=== PATIENT | male | born 1950 ===

== ENCOUNTER 2016-07-05 19:29 | Inpatient (IN) | payer OTHER, MEDICARE ==
[2016-07-05 19:50] LABS: ADD MANUAL DIFF? NO
[2016-07-05 20:04] LABS: BILIRUBIN,TOTAL 1.5 mg/dL (0.2-1.3); CALCIUM 9.7 mg/dL (8.4-10.5); POTASSIUM 4.3 mmol/L (3.6-5.0); TOTAL PROTEIN 7.3 g/dL (5.8-8.3)
[2016-07-05] MEDS ORDERED: WATER FOR INJECTION IV ONE ×2 (20:15)
[2016-07-05] MEDS ORDERED: ALTEPLASE IV ONE ×2 (20:15)
[2016-07-05 20:18] LABS: INR 1.28 (0.93-1.08); PARTIAL THROMBOPLASTIN TIME 25.1 Seconds (23.7-30.8)
[2016-07-05 20:19] LABS: GRAN % 65.9 % (50.0-68.0); HEMATOCRIT 35.9 % (42.0-52.0); LYMPH % 15.7 % (22.0-35.0); MEAN CELL VOLUME 87.8 fL (80.0-105.0); MEAN CORPUSCULAR HEMOGLOBIN 29.1 pg (25.0-35.0); MEAN CORPUSCULAR HGB CONC 33.1 g/dl (31.0-37.0); MEAN PLATELET VOLUME 10.8 fl (7.0-11.0); PLATELET COUNT 142 10^3/uL (120.0-450.0); RED CELL DISTRIBUTION WIDTH 15.2 % (11.5-14.5); TROPONIN I 0.04 ng/mL; WHITE BLOOD COUNT 4.3 10^3/ul (4.5-11.0)
[2016-07-05 20:20] LABS: BASO # 0.02 K/mm3 (0.0-2.0); BASO % 0.5 % (0.0-3.0); EOS # 0.2 (0.0-0.7); EOS % 3.8 % (1.5-5.0); GRAN # 2.81 (1.4-6.5); LYMPH # 0.7 (1.2-3.4); MONO # 0.6 (0.1-0.6); MONO % 14.1 % (1.0-6.0)
--- NOTE | 2016-07-05 21:00 | CP.PCM.CON ---
<Barry Lopez - Last Filed: 07/05/16 22:34> History of Present Illness - History of Present Illness History of Present Illness: 65 y/o M with PMH of CAD s/p quadruple bypass, HLD, Diverticulitis, Gout, and Chronic kidney disease presents to the for sudden onset left sided weakness. Pt is accompanied at bedside by who provides history for patient. Pt was at home with when between [id number] pt developed left arm shaking. His then noticed the patient began to have increased difficulty breathing and he was gasping for air. Pt's speech was also unclear. At this time, his called the ambulance. Pt was intubated in the field due to inability to protect his own airway. Pt was brought into ED and CODE STROKE was called. Head CT was obtained which could not exclude possibility of nonhemorrhagic MCA stroke. Pt was started on tPA in ED. Of note, according to , pt has been lethargic over the past 2 weeks and had several episodes of diarrhea. He has been sleeping more than usual and decreased oral intake. also describes the patient as being short of breath over this time as well. PMH: CAD s/ quadruple bypass, HLD, Diverticulitis, Gout, Chronic kidney disease Surgical Hx: Appendectomy, quadruple bypass around 16 years ago Social Hx: Former heavy smoker, occasional tobacco use quadruple bypass, denies illicit drug use. Retired Allergies: NKDA Medication: ASA, Coreg, Renvela, Renexa, Allopurinol, Periactin, Vit. D, Lipitor , Ramipril, Fenofibric acid, Nitroglycerin, Plavix Review of Systems - Review of Systems Systems not reviewed;Unavailable: Intubated Past Patient History - Infectious Disease Hx of Infectious Diseases: None - Past Social History Smoking Status: Current Some Days Smoker - CARDIAC Hx Heart Attack: Yes Hx Hypercholesterolemia: Yes Other/Comment: CAD. Quadruple bypass - RENAL Other/Comment: as per , patient had "high creatinine levels" and is on renvela. - HEMATOLOGICAL/ONCOLOGICAL Other/Comment: "high uric acid" - GASTROINTESTINAL Hx Diverticulitis: Yes - PSYCHIATRIC Hx Substance Use: No - SURGICAL HISTORY Hx Appendectomy: Yes Other/Comment: Quadruple bypass - ANESTHESIA Hx Anesthesia: Yes Hx Anesthesia Reactions: No Hx Malignant Hyperthermia: No Meds Allergies/Adverse Reactions: Allergies Allergy/AdvReac Type Severity Reaction Status Date / Time No Known Allergies Allergy Verified 07/05/16 19:31 - Medications Medications: Current Medications Alteplase, Recombinant 64.8 mg (/ Sterile Water) 100 mls @ 50 mls/hr IV ONCE ONE PRN Reason: Protocol Stop: 07/05/16 22:14 Last Admin: 07/05/16 20:07 Dose: 32.4 mls/hr Physical Exam - Constitutional Appears: In Acute Distress - Head Exam Head Exam: ATRAUMATIC, NORMAL INSPECTION, NORMOCEPHALIC - Eye Exam Eye Exam: Normal appearance, PERRL - ENT Exam ENT Exam: Mucous Membranes Moist, Normal Exam - Neck Exam Neck exam: Positive for: Normal Inspection. Negative for: Lymphadenopathy - Respiratory Exam Respiratory Exam: Rhonchi (Throughout right lobe), Respiratory Distress ( Intubated) - Cardiovascular Exam Cardiovascular Exam: Irregular Rhythm, +S1, +S2 - GI/Abdominal Exam GI & Abdominal Exam: Normal Bowel Sounds, Soft. absent: Distended, Guarding - Extremities Exam Extremities exam: Positive for: normal inspection. Negative for: calf tenderness, pedal edema - Neurological Exam Additional comments: Spontaneous movement noted on right side. No movement noted on left. Reflexes intact on right side. No reflexes on left side. - Skin Skin Exam: Intact, Normal Color, Warm Results - Vital Signs Recent Vital Signs: Last Vital Signs Temp 98 F 07/05/16 20:34 Pulse 96 H 07/05/16 20:35 Resp 14 07/05/16 20:34 BP 165/110 H 07/05/16 20:35 Pulse Ox 98 07/05/16 20:20 - Labs Result Diagrams: 07/05/16 19:48 07/05/16 19:48 Labs: Laboratory Results - last 24 hr 07/05/16 07/05/16 07/05/16 19:47 19:48 19:48 WBC 4.3 L RBC 4.09 Hgb 11.9 L Hct 35.9 L MCV 87.8 MCH 29.1 MCHC 33.1 RDW 15.2 H Plt Count 142 MPV 10.8 Gran % 65.9 Lymph % (Auto) 15.7 L [place] % (Auto) 14.1 H Eos % (Auto) 3.8 Baso % (Auto) 0.5 Gran # 2.81 Lymph # 0.7 L [place] # 0.6 Eos # 0.2 Baso # 0.02 PT 13.8 H INR 1.28 H APTT 25.1 Sodium Potassium Chloride Carbon Dioxide Anion Gap BUN Creatinine Est GFR ( Amer) Est GFR (Non-Af Amer) POC Glucose (mg/dL) 114 H Random Glucose Calcium Total Bilirubin AST ALT Alkaline Phosphatase Troponin I Total Protein Albumin Globulin Albumin/Globulin Ratio Triglycerides Cholesterol LDL Cholesterol Direct HDL Cholesterol 07/05/16 19:48 WBC RBC Hgb Hct MCV MCH MCHC RDW Plt Count MPV Gran % Lymph % (Auto) [place] % (Auto) Eos % (Auto) Baso % (Auto) Gran # Lymph # [place] # Eos # Baso # PT INR APTT Sodium 137 Potassium 4.3 Chloride 103 Carbon Dioxide 23 Anion Gap 15 BUN 26 H Creatinine 2.4 H Est GFR ( Amer) 33 Est GFR (Non-Af Amer) 27 POC Glucose (mg/dL) Random Glucose 106 Calcium 9.7 Total Bilirubin 1.5 H AST 40 ALT 31 Alkaline Phosphatase 31 L Troponin I 0.04 Total Protein 7.3 Albumin 3.7 Globulin 3.6 Albumin/Globulin Ratio 1.0 L Triglycerides 94 Cholesterol 78 L LDL Cholesterol Direct 32 HDL Cholesterol 33 Assessment & Plan - Assessment and Plan (Free Text) Plan: 65 y/o M with PMH of CAD s/ quadruple bypass, HLD, Diverticulitis, Gout, and Chronic kidney disease presents with nonhemorrhagic stroke in the setting of respiratory failure. Pt was started on tPA in ED and will be monitored in the ICU. BP also became elevated in the ED and pt will be placed on an esmolol drip. Pt was also found to have new onset a-fib on arrival. Pt will be monitored closely for any worsening of neurologic status. Neuro: Nonhemorrhagic stroke tPA in ED Neurochecks [id number], then [id number], then Q4h afterwards Avoid sedatives to accurately evaluate neurologic status Neurology consulted, Dr. Yogi Michael Cardio: Esmolol drip, goal SBP 140-160 Keep HR below 110 Will trend troponins BNP ordered to evaluate for heart failure Will hold home medications at this time Maintain MAP >65 Pulm: Intubated, PRVC ABG ordered, will adjust vent settings based on results BNP ordered, if elevated will consider diuresis Maintain O2 sat >92% GI: OG tube to be placed for medications Protonix Stool cultures for recent loose bowel movements Nephro: Hx of CKD, elevated creatinine on admission Unknown baseline creatinine Will continue to monitor, likely dehydration consistent with elevated BUN and hx of poor oral intake Maintain euvolemia Replenish electrolytes as needed Heme/ID: Afebrile, no leukocytosis Maintain normothermia Will consider abx if temperature elevates Blood and urine cultures pending Procal ordered Normocytic anemia PPX: Protonix Hold anticoagulation, pt is on tPA Seen, reviewed, and discussed with attending John PGY-[address] <[address] Q - Last Filed: 07/06/16 02:31> Meds - Medications Medications: Current Medications Allopurinol (Zyloprim) 200 mg PO DAILY NEEL Atorvastatin Calcium (Lipitor) 10 mg PO HS NEEL Fenofibrate (Tricor) 145 mg PO DAILY NEEL Hydralazine HCl (Apresoline) 10 mg IVP STAT NEEL Last Admin: 07/05/16 21:19 Dose: 10 mg Esmolol HCl (Brevibloc) 250 mls @ 24.072 mls/hr IV .[id number] NEEL; 50 MCG/KG/MIN PRN Reason: Protocol Last Admin: 07/05/16 22:28 Dose: 50 mcg/kg/min, 24.072 mls/hr Dexmedetomidine HCl (Precedex 4 Mcg/Ml (100 Ml)) 400 mcg in 100 mls @ 4.012 mls /hr IV .Q24H PRN; Protocol; 0.2 MCG/KG/HR PRN Reason: Agitation Last Admin: 07/06/16 00:36 Dose: 0.2 mcg/kg/hr, 4.012 mls/hr Non-Formulary Medication (Ranolazine [Ranexa]) 1 tab PO Q12H NEEL Pantoprazole Sodium (Protonix Inj) 40 mg IVP DAILY NEEL Sevelamer HCl (Renagel) 800 mg PO WM NEEL Results - Vital Signs Recent Vital Signs: Last Vital Signs Temp 98 F 07/05/16 20:34 Pulse 95 H 07/06/16 01:22 Resp 14 07/06/16 01:22 BP 142/96 H 07/06/16 01:22 Pulse Ox 99 07/06/16 01:22 - Labs Result Diagrams: 07/05/16 19:48 07/05/16 19:48 Labs: Laboratory Results - last 24 hr 07/05/16 07/05/16 07/05/16 21:59 22:00 22:59 pCO2 31 L pO2 67.0 L HCO3 18.3 L ABG pH 7.38 ABG Total CO2 19.3 L ABG O2 Saturation 95.6 ABG Base Excess -5.7 L ABG Potassium 3.6 Sodium 142.0 Chloride 115.0 H Glucose 128 H Lactate 1.0 FiO2 100.0 NT-Pro-B Natriuret Pep 37971 H Arterial Blood Potassium 3.6 Blood Type Confirm A POSITIVE Attending/Attestation - Attestation I have personally seen and examined this patient.: Yes I have fully participated in the care of the patient.: Yes I have reviewed all pertinent clinical information: Yes Notes (Text): 07/06/16 02:25 I agree with the above note and exam by Dr. Ji with the following additions/exceptions: 65 y/o male with CAD s/p quadruple bypass, htn, dyslipidemia, DM who was brought in by ambulance to the ED due to altered mentation which was sudden onset. He was evaluated by the ED Physician who activated a code stroke and after discussing the patient's case with the neurologist publications editor, he was deemed a candidate for tPa. After the patient had started his tPa infusion, the ICU consult was requested and we evaluated the patient in the ED together. He was found to be minimally responsive to verbal and physical stimulus (possibly at the time due to sedatives used by EMS for intubation) however he did have spontaneous movement in his right upper and lower extremities. Throughout the night the patient began to follow commands and wake up, able to follow simple commands and participate in the exam to an extent. Start on precedex for light sedation; continued neurochecks and caution with blood draws and sticks after being given tPa. The patient physically remains in the ED as there are no current open beds/nurses available to care for the patient in the ICU. Also, through my discussion with the ED Physician (Dr. Melendez) Neurology had requested a CT Angio of the brain, however that is unable to be done at this time due to patient's CKD (possible TONI on CKD, as his baseline numbers are not known at this time). labs and images available thus far reviewed case discussed with Dr. Melendez in the ED total time of care: 45 minutes
--- NOTE | 2016-07-05 21:00 | ED PDOC ---
Arrival/HPI - General Chief Complaint: Weakness/Neurological Deficit Time Seen by Provider: 07/05/16 19:31 Historian: Spouse, EMS - Critical Care Critical Care Minutes: 60 minutes Narrative Critical Care (Text): Stroke management - History of Present Illness Narrative History of Present Illness (Text): 07/05/16 19:3 Patient is a 65 year old male, with a history of CAD s/p CABG, hypercholesterolemia, and chronic kidney disease, presents to the emergency department via ambulance for evaluation of sudden onset left sided weakness and slurred speech since 5:30 pm. Patient's called the ambulance after noticing that he had increased difficulty breathing. Patient unable to protect his airway and was intubated in the field. ROS limited because patient is intubated. History obtained from patient's . Time/Duration: 1-3 hours Symptom Onset: Sudden Symptom Course: Unchanged Severity Level: Severe Past Medical History - Provider Review Nursing Documentation Reviewed: Yes - Infectious Disease Hx of Infectious Diseases: None - Cardiac Hx ID: Yes Other/Comment: CAD. Quadruple bypass - Renal Other/Comment: as per , patient had "high creatinine levels" and is on renvela. - Hematological/Oncological Other/Comment: "high uric acid" - Gastrointestinal Hx Diverticulitis: Yes - Psychiatric Hx Substance Use: No - Surgical History Hx Appendectomy: Yes Other/Comment: Quadruple bypass - Anesthesia Hx Anesthesia: Yes Hx Anesthesia Reactions: No Hx Malignant Hyperthermia: No Family/Social History - Physician Review Nursing Documentation Reviewed: Yes Family/Social History: No Known Family HX Smoking Status: Current Some Days Smoker Hx Alcohol Use: Yes Frequency of alcohol use: Socially Hx Substance Use: No Allergies/Home Meds Allergies/Adverse Reactions: Allergies No Known Allergies Allergy (Verified 07/05/16 19:31) Home Medications: Home Meds Medication Instructions Recorded Confirmed Allopurinol [Zyloprim] 200 mg PO DAILY 07/05/16 07/06/16 Aspirin [Adult Low Dose Aspirin EC] 1 cap PO DAILY 07/05/16 07/06/16 Atorvastatin [Lipitor] 1 tab PO HS 07/05/16 07/06/16 Carvedilol [Coreg] 1 tab PO BID 07/05/16 07/06/16 Clopidogrel [Plavix] 1 tab PO DAILY 07/05/16 07/06/16 Cyproheptadine [Periactin] 4 mg PO QID 07/05/16 07/06/16 Ergocalciferol [Drisdol 50,000 1 cap PO Q7D 07/05/16 07/06/16 Intl Units Cap] Fenofibric Acid (Choline) 1 cap PO DAILY 07/05/16 07/06/16 [Fenofibric Acid] Nitroglycerin [Nitrostat SL Tab] 1 tab SL PRN PRN 07/05/16 07/06/16 Ramipril [Altace] 1 tab PO DAILY 07/05/16 07/06/16 Ranolazine [Ranexa] 1 tab PO Q12H 07/05/16 07/06/16 Sevelamer Carbonate [Renvela] 1 tab PO TID 07/05/16 07/06/16 Review of Systems - Review of Systems Systems not reviewed;Unavailable: Intubated Neurological: Focal Weakness, Other (slurred speech and left sided weakness/ tremors. ) Physical Exam - Physical Exam Physical Exam Limitations: Clinical Condition Vital Signs Reviewed: Yes Vital Signs Temp Pulse Resp BP Pulse Ox 07/06/16 07:32 81 18 157/82 H 96 07/06/16 07:01 83 15 151/88 H 98 07/06/16 06:24 81 16 168/77 H 95 07/06/16 04:54 81 24 140/72 80 L 07/06/16 01:22 95 H 14 142/96 H 99 07/06/16 00:55 131/76 07/06/16 00:00 103 H 21 136/89 98 07/05/16 22:28 89 150/93 H 07/05/16 22:13 93 H 24 147/99 H 07/05/16 22:11 98 H 26 H 147/99 H 07/05/16 22:10 115 H 179/107 H 07/05/16 21:58 76 14 137/81 100 07/05/16 21:28 108 H 181/101 H 98 07/05/16 21:19 101 H 173/132 H 07/05/16 20:50 104 H 174/96 H 97 07/05/16 20:35 96 H 165/110 H 07/05/16 20:34 98 F 94 H 14 131/79 07/05/16 20:20 96 H 16 160/98 H 98 07/05/16 20:05 94 H 131/79 99 07/05/16 19:54 98 F 95 H 14 154/103 H 95 Temperature: Afebrile Blood Pressure: Hypertensive Pulse: Regular Respiratory Rate: Normal Appearance: Positive for: Non-Toxic Mental Status: Positive for: Comatose Finger Stick Blood Glucose: 114 - Systems Exam Head: Present: Atraumatic, Normocephalic Pupils: Present: PERRL Extroacular Muscles: Present: EOMI Neck: Present: Normal Range of Motion Respiratory/Chest: Present: Clear to Auscultation Cardiovascular: Present: Regular Rate and Rhythm, Normal S1, S2. No: Murmurs Abdomen: No: Tenderness, Distention Back: Present: Normal Inspection Upper Extremity: Present: NORMAL PULSES, Neurovascularly Intact. No: Cyanosis, Edema, Swelling Lower Extremity: Present: NORMAL PULSES, Neurovascularly Intact. No: Edema, Erythema Neurological: Present: Other (left side flaccid. ) Skin: Present: Warm, Dry Medical Decision Making ED Course and Treatment: 07/05/16 19:31 Impression: A 65 year old male who presents to the emergency department for evaluation of left sided weakness and slurred speech since 5:30pm. Plan: -- CT Head -- EKG -- Chest X-ray -- Labs -- Activase -- Activase -- Reassess and disposition Progress Notes: Case discussed with who is aware of case details and recommends tPA administration as patient is within the window. Consent obtained from . 07/05/16 21:01 CT Head results reviewed: IMPRESSION: Cannot exclude hyperdense right M2 MCA which is a finding of early nonhemorrhagic stroke. Acute strokes may be initially radiologically occult on CT. If the patient is having persistent stroke like symptomatology, then MRI may be beneficial EKG reviewed by me: Atrial fibrillation @ 103 bpm. Rapid ventricualr response with premature ventricular or aberrantly conducting complexes. Right bundle branch block. Inferior infarct. 07/05/16 21:[address] Bishop who is aware and agrees with the plan to admit patient to ICU for CVA. Accepts patient under her service. - Lab Interpretations Microbiology Results: Microbiology Results 07/05/16 19:53 Urine,Catheterized Urine Culture - Final No Growth (<1,000 CFU/ML) Lab Results: 07/05/16 19:48 07/05/16 19:48 Lab Results 07/05/16 19:53: Urine Color Yellow, Urine Appearance Clear, Urine pH 6.0, Ur Specific [place] 1.025, Urine Protein 100 H, Urine Glucose (UA) Negative, Urine Ketones Negative, Urine Blood Negative, Urine Nitrate Negative, Urine Bilirubin Negative, Urine Urobilinogen 0.2, Ur Leukocyte Esterase Negative, Urine RBC 1 - 3, Urine WBC 0 - 2, Ur Epithelial Cells 0 - 2 07/05/16 19:48: Hemoglobin A1c 5.8 07/05/16 19:48: Sodium 137, Potassium 4.3, Chloride 103, Carbon Dioxide 23, Anion Gap 15, BUN 26 H, Creatinine 2.4 H, Est GFR ( Amer) 33, Est GFR ( Non-Af Amer) 27, Random Glucose 106, Calcium 9.7, Total Bilirubin 1.5 H, AST 40 , ALT 31, Alkaline Phosphatase 31 L, Troponin I 0.04, Total Protein 7.3, Albumin 3.7, Globulin 3.6, Albumin/Globulin Ratio 1.0 L, Triglycerides 94, Cholesterol 78 L, LDL Cholesterol Direct 32, HDL Cholesterol 33 07/05/16 19:48: PT 13.8 H, INR 1.28 H, APTT 25.1 07/05/16 19:48: WBC 4.3 L, RBC 4.09, Hgb 11.9 L, Hct 35.9 L, MCV 87.8, MCH 29.1 , MCHC 33.1, RDW 15.2 H, Plt Count 142, MPV 10.8, Gran % 65.9, Lymph % (Auto) 15.7 L, [place] % (Auto) 14.1 H, Eos % (Auto) 3.8, Baso % (Auto) 0.5, Gran # 2.81, Lymph # 0.7 L, [place] # 0.6, Eos # 0.2, Baso # 0.02 07/05/16 19:47: POC Glucose (mg/dL) 114 H 07/05/16 19:43: Blood Type A POSITIVE, Antibody Screen Negative, BBK History Checked No verified bt I have reviewed the lab results: Yes - RAD Interpretation Narrative RAD Interpretations (Text): EXAM: CT Head Without Intravenous Contrast FINDINGS: Brain: Age-related atrophy and chronic white matter ischemic changes No hemorrhage. Ventricles: Unremarkable. No ventriculomegaly. Bones/joints: Chronic appearing nasal bone fractures, fracture of the right lateral maxillary sinus and zygomatic arch Soft tissues: Unremarkable. Vasculature: Atherosclerosis of the vertebral arteries and cavernous carotid arteries. Slightly rotated positioning with a hyper dense right M2 MCA not excluded Sinuses: Mucosal thickening of the paranasal sinuses with mucus retention cysts Mastoid air cells: Unremarkable as visualized. No mastoid effusion. IMPRESSION: Cannot exclude hyperdense right M2 MCA which is a finding of early nonhemorrhagic stroke. Acute strokes may be initially radiologically occult on CT. If the patient is having persistent stroke like symptomatology, then MRI may be beneficial Radiology Orders: 07/05/16 19:31 HEAD W/O (CODE STROKE) [CT] Stat 07/05/16 19:32 CHEST PORTABLE [RAD] Stat Municipal Clerk: Radiologist - EKG Interpretation Interpreted by ED Physician: Yes Type: 12 lead EKG - Medication Orders Current Medication Orders: Allopurinol (Zyloprim) 200 mg PO DAILY [facility] Last Admin: 07/07/16 10:29 Dose: 200 mg Aspirin (Aspirin Chewable) 81 mg PO DAILY [facility] Last Admin: 07/07/16 13:19 Dose: 81 mg Atorvastatin Calcium (Lipitor) 10 mg PO HS [facility] Last Admin: 07/07/16 21:56 Dose: 10 mg Fenofibrate (Tricor) 145 mg PO DAILY [facility] Last Admin: 07/07/16 10:30 Dose: 145 mg Esmolol HCl (Brevibloc) 250 mls @ 24.072 mls/hr IV .[id number] NEEL; 50 MCG/KG/MIN PRN Reason: Protocol Last Admin: 07/07/16 16:40 Dose: Not Given Non-Admin Reason: BP Parameters Not Met Heparin Sodium/Sodium Chloride (Heparin 01664 Units/250ml 1/2 Normal Saline) 25 ,000 units in 250 mls @ 12.81 mls/hr IV .[id number] PRN; Protocol; 18 UNITS/KG/HR PRN Reason: ADJUST RATE PER PROTOCOL Last Titration: 07/07/16 16:48 Dose: 15.03 units/kg/hr, 10.7 mls/hr Metoprolol Tartrate (Lopressor) 25 mg PO BID [facility] Last Admin: 07/07/16 17:05 Dose: 25 mg Non-Formulary Medication (Ranolazine [Ranexa]) 1 tab PO Q12H [facility] Last Admin: 07/07/16 21:56 Dose: Pantoprazole Sodium (Protonix Inj) 40 mg IVP DAILY [facility] Last Admin: 07/07/16 10:29 Dose: 40 mg Ramipril (Altace) 5 mg PO DAILY [facility] Last Admin: 07/07/16 17:05 Dose: 5 mg Sevelamer HCl (Renagel) 800 mg PO WM [facility] Last Admin: 07/07/16 16:40 Dose: Discontinued Medications Alteplase, Recombinant (Activase 100 Mg Inj) 7 mg 0.09 mg/kg (7 mg) IV ONCE ONE Stop: 07/05/16 19:49 Last Admin: 07/05/16 20:03 Dose: 7 mg Comments: administered by Dr Melendez Furosemide (Lasix) 40 mg IVP STAT STA Stop: 07/05/16 22:29 Last Admin: 07/06/16 00:55 Dose: 40 mg Heparin Sodium (Porcine) (Heparin) 4,970 units 80 units/kg (6400 units) IV ONCE ONE PRN Reason: Protocol Stop: 07/07/16 01:01 Last Admin: 07/07/16 05:13 Dose: 4,970 units Hydralazine HCl (Apresoline) 10 mg IVP STAT [facility] Last Admin: 07/07/16 07:52 Dose: Alteplase, Recombinant 64.8 mg (/ Sterile Water) 100 mls @ 50 mls/hr IV ONCE ONE PRN Reason: Protocol Stop: 07/05/16 22:14 Last Admin: 07/05/16 20:07 Dose: 32.4 mls/hr Dexmedetomidine HCl (Precedex 4 Mcg/Ml (100 Ml)) 400 mcg in 100 mls @ 4.012 mls /hr IV .Q24H PRN; Protocol; 0.2 MCG/KG/HR PRN Reason: Agitation Last Titration: 07/06/16 11:35 Dose: 0 mcg/kg/hr, 0 mls/hr Heparin Sodium/Sodium Chloride (Heparin 92966 Units/250ml 1/2 Normal Saline) 25 ,000 units in 250 mls @ 14.443 mls/hr IV .[id number] PRN; Protocol; 18 UNITS/KG/HR PRN Reason: ADJUST RATE PER PROTOCOL Labetalol HCl (Trandate) Confirm Administered Dose 100 mg .ROUTE .STK-MED ONE Stop: 07/05/16 21:44 Last Admin: 07/05/16 22:10 Dose: 10 mg Pneumococcal Polyvalent Vaccine (Pneumovax 23 Vaccine) 0.5 ml IM .ONCE ONE Stop: 07/06/16 13:22 Last Admin: 07/07/16 07:52 Dose: NIHSS Scale ([place]) Time Performed: 19:31 - How Severe is the [place] tPA Level of Consciousness: 2=Obtunded LOC to Questions: 2=Neither correct LOC to commands: 2=Neither correct Best Gaze: 0=Normal Visual: 0=No visual loss Facial: 0=Normal Motor Arm - Left: 4=No movement Motor Arm - Right: 0=No drift Motor Leg - Left: 4=No movement Motor Leg - Right: 0=No drift Limb Ataxia: 1=Present Upper or Lower Sensory: 1=Mild to moderate loss Best Language: 3=Mute Dysarthia: 2=Severe, near unintelligible or worse Extinction & Inattention (Neglect): 2=Profound neglect(does not recognize own hand or orients to one side) Score: 23 Risk Level: Severe Stroke Risk rTPA Inclusion/Exclusion - Refusal of Treatment Patient Refused Treatment: No - Inclusion Criteria for Altepase Patient is 18 years or Older: Yes The Clinical Diagnosis of Ischemic Stroke That is Causing a Potentially Disabling Neurological Deficit: Yes Time of Onset is Well Established to be Less Than 270 Minute Before Treatment Would Begin: Yes Risk/Benefit Discussed With Patient/Family Member Present: Yes - Exclusion Criteria for Altepase Uncontrolled Hypertension at Time of Treatment (Systolic BP above 185 or Diastolic BP above 110 mmHg): No Active Internal Bleeding: No Known Bleeding Diathesis Including but Not Limited to: Platelets Below 100,000/ mm,PTT Above 40 sec After Heparin Use, Current Use of Oral Anitcoagulant With INR Greater Than 1.7 or PT Greater Than 15 secs: No Evidence of an Intracranial Hemorrhage: No - Scribe Statement The provider has reviewed the documentation as recorded by the Angel Dailey Provider Attestation: All medical record entries made by the Angel were at my direction and personally dictated by me. I have reviewed the chart and agree that the record accurately reflects my personal performance of the history, physical exam, medical decision making, and the department course for this patient. I have also personally directed, reviewed, and agree with the discharge instructions and disposition. Disposition/Present on Arrival - Present on Arrival Any Indicators Present on Arrival: No History of DVT/PE: No History of Uncontrolled Diabetes: No Urinary Catheter: No History of Decub. Ulcer: No History Surgical Site Infection Following: None - Disposition Have Diagnosis and Disposition been Completed?: Yes Diagnosis: Cerebral infarction, Atrial fibrillation Disposition: HOSPITALIZED Disposition Time: 23:00 Condition: CRITICAL
[2016-07-05] MEDS: Labetalol 5 mg/ml Inj 20ML ONE ×2 (21:49→22:10)
[2016-07-05 22:03] LABS: ARTERIAL BLOOD GAS HCO3 18.3 mmol/L (21-28); ARTERIAL BLOOD GAS PH 7.38 (7.35-7.45)
[2016-07-05] MEDS: Esmolol Hcl 2500mg/250ml NAC 250 ML IV SCH (22:28)
[2016-07-06] MEDS ORDERED: Dexmedetomidine HCl 4mcg/ml 400 MCG/100 ML BOTTLE IV PRN (00:02)
[2016-07-06 01:41] LABS: URINE BILIRUBIN NEGATIVE (NEGATIVE); URINE BLOOD NEGATIVE (NEGATIVE); URINE GLUCOSE (UA) NEGATIVE (NEGATIVE); URINE KETONE NEGATIVE (NEGATIVE); URINE LEUKOCYTE ESTERASE NEGATIVE Leu/uL (NEGATIVE); URINE PROTEIN 100 mg/dL (<30 mg/dL); URINE UROBILINOGEN 0.2 E.U./dL (<1 E.U./dL)
[2016-07-06 01:44] LABS: URINE APPEARANCE CLEAR (CLEAR); URINE COLOR YELLOW (YELLOW)
[2016-07-06 01:55] LABS: URINE EPITHELIAL CELLS 0 - 2 /hpf (0-5); URINE WBC 0 - 2 /hpf (0-6)
[2016-07-06] MEDS: RANOLAZINE PO SCH ×3 (06:34→22:30)
[2016-07-06 07:01] LABS: ARTERIAL BLOOD GAS HCO3 23.4 mmol/L (21-28); ARTERIAL BLOOD GAS O2 CONTENT 16.9 ML/dl (15-23); ARTERIAL BLOOD GAS PH 7.42 (7.35-7.45); ARTERIAL BLOOD HGB O2 SAT 97.2 % (95.0-98.0); CARBOXYHEMOGLOBIN 1.2 % (0.5-1.5); HHB 0.8 % (0-5); METHEMOGLOBIN 0.8 % (0.0-3.0)
--- NOTE | 2016-07-06 07:42 | CT ---
PROCEDURE: CT HEAD WITHOUT CONTRAST. HISTORY: code stroke COMPARISON: None available. TECHNIQUE: Axial computed tomography images were obtained through the head/brain without intravenous contrast. Radiation dose: Total exam DLP = 677.45 mGy-cm. This CT exam was performed using one or more of the following dose reduction techniques: Automated exposure control, adjustment of the mA and/or kV according to patient size, and/or use of iterative reconstruction technique. FINDINGS: HEMORRHAGE: No intracranial hemorrhage. BRAIN: No mass effect or edema. No atrophy or chronic microvascular ischemic changes. Note is made of hyperdensity of the right M2 segment of the MCA. Though this may be artifactual, the possibility of early bland infarct must be considered as well. Clinically appropriate consider further evaluation with magnetic resonance imaging. No other evidence of acute infarct. VENTRICLES: Unremarkable. No hydrocephalus. CALVARIUM: No calvarial fracture. PARANASAL SINUSES: Chronic ethmoid sinusitis. Sphenoid retention cysts/polyps. Probable old minimally depressed fracture lateral wall right maxillary sinus. Old healed fracture right zygomatic arch. MASTOID AIR CELLS: Unremarkable as visualized. No inflammatory changes. OTHER FINDINGS: None. IMPRESSION: New hyperdense M2 segment of right MCA may reflect early nonhemorrhagic infarct. Consider further evaluation with magnetic resonance imaging if clinically warranted. Preliminary interpretation of this examination was reported by [email or web address] at 7:48 p.m. on 07/05/2016. There is concurrence of this report with the preliminary interpretation.
--- NOTE | 2016-07-06 08:41 | RAD ---
HISTORY: Check ET tube COMPARISON: 07/05/2016 FINDINGS: LUNGS: Via opacity at left base silhouettes left hemidiaphragm. Possible pleural effusion. This represents interval change from 07/05. No right pleural effusion. No pneumothorax. No pulmonary infiltrate. PLEURA: As above CARDIOVASCULAR: CABG. ET tube unchanged. OSSEOUS STRUCTURES: No significant abnormalities. VISUALIZED UPPER ABDOMEN: Normal. OTHER FINDINGS: None. IMPRESSION: Possible left pleural effusion. No infiltrate. ET tube unchanged.
--- NOTE | 2016-07-06 09:15 | RAD ---
HISTORY: cva COMPARISON: No prior. FINDINGS: LUNGS: No active pulmonary disease. PLEURA: No significant pleural effusion identified, no pneumothorax apparent. CARDIOVASCULAR: Moderate to severe cardiomegaly with vascular and interstitial congestion. Endotracheal tube in satisfactory position OSSEOUS STRUCTURES: No significant abnormalities. VISUALIZED UPPER ABDOMEN: Normal. OTHER FINDINGS: None. IMPRESSION: Moderate to severe cardiomegaly with vascular and interstitial congestion. Endotracheal tube in satisfactory position
[2016-07-06 09:47] LABS: HEMATOCRIT 38.3 % (42.0-52.0); MEAN CELL VOLUME 87.4 fL (80.0-105.0); MEAN CORPUSCULAR HEMOGLOBIN 29.5 pg (25.0-35.0); MEAN CORPUSCULAR HGB CONC 33.7 g/dl (31.0-37.0); MEAN PLATELET VOLUME 10.6 fl (7.0-11.0); RED CELL DISTRIBUTION WIDTH 14.9 % (11.5-14.5); WHITE BLOOD COUNT 7.5 10^3/ul (4.5-11.0)
[2016-07-06 09:57] LABS: BILIRUBIN,TOTAL 1.9 mg/dL (0.2-1.3); CALCIUM 9.8 mg/dL (8.4-10.5); MAGNESIUM 1.8 mg/dL (1.7-2.2); PHOSPHOROUS 4.7 mg/dL (2.5-4.5); POTASSIUM 4.3 mmol/L (3.6-5.0); TOTAL PROTEIN 7.7 g/dL (5.8-8.3)
--- NOTE | 2016-07-06 11:11 | CT ---
PROCEDURE: CT HEAD WITHOUT CONTRAST. HISTORY: post tpa COMPARISON: CT of the head 07/05/2016 TECHNIQUE: Axial computed tomography images were obtained through the head/brain without intravenous contrast. Radiation dose: Total exam DLP = 812 mGy-cm. This CT exam was performed using one or more of the following dose reduction techniques: Automated exposure control, adjustment of the mA and/or kV according to patient size, and/or use of iterative reconstruction technique. FINDINGS: HEMORRHAGE: No intracranial hemorrhage. BRAIN: No mass effect or edema. There is now evidence of an acute infarct in the right temporal lobe, right frontal lobe and portions of the right occipital lobe. There is mass effect with effacement of the sulci and loss of the mariscal-white differentiation. Hyper dense M2 segment of the right middle cerebral artery is seen consistent with thrombus. VENTRICLES: Unremarkable. No hydrocephalus. CALVARIUM: Unremarkable. PARANASAL SINUSES: Unremarkable as visualized. No significant inflammatory changes. MASTOID AIR CELLS: Unremarkable as visualized. No inflammatory changes. OTHER FINDINGS: None. IMPRESSION: There is now evidence of an acute infarct in the right temporal lobe, right frontal lobe and portions of the right occipital lobe. There is mass effect with effacement of the sulci and loss of the mariscal-white differentiation. Hyper dense M2 segment of the right middle cerebral artery is seen consistent with thrombus.
--- NOTE | 2016-07-06 11:44 | HP ---
The patient was seen and examined on 07/05/16 in the Emergency Room. was on the bedside. CHIEF COMPLAINT: Weakness, neurological deficits. HISTORY OF PRESENT ILLNESS: The patient is a 65-year-old male, new for me, with history of coronary artery disease, CABG, hypercholesterolemia, chronic kidney disease, brought to the Emergency Room by ambulance for evaluation of sudden onset of left-sided weakness and slurred speech. The patient's called the ambulance after noticing that he had increased difficulty of breathing. The patient unable to protect his airway and was intubated in the field. REVIEW OF SYSTEMS: Limited because of intubation, and history obtained from the . According to , recently they came back from vacation from [facility] , she noticed that he was having swelling of his body, and something is happening after coming back. The patient was a little bit weak and lethargic , but still in denial that I am fine, but finally on 07/05/16, weakness of the extremities, shortness of breath, drooling, then she called the ambulance and brought the patient to the hospital. Her doctor is not coming in [facility]. I was on-call, so I have just seen this patient. PAST MEDICAL HISTORY: History of [place], coronary artery disease, quadruple bypass , renal insufficiency, high uric acid, as per , history of appendectomy. FAMILY HISTORY: Father and mother noncontributory. HABITS: Positive for smoking. Alcohol yes. SOCIAL HISTORY: Substance abuse no. ALLERGIES: The patient is not allergic to any medications. HOME MEDICATIONS: Allopurinol, aspirin, cyproheptadine, vitamin D, fenofibric acid, Nitrostat, Altace, Ranexa, Renvela. REVIEW OF SYSTEMS: The patient is examined on the bedside in the Emergency Room , intubated, is not able to get review of systems, but does not have fever. As per Emergency Room notes, the patient has slurred speech, left-sided weakness , and tremors at home. PHYSICAL EXAMINATION: VITAL SIGNS: Temperature 98, pulse 95, respiratory rate 14, and blood pressure 154/103. HEENT: Head normocephalic, atraumatic. Eyes closed, cannot complete examination. Nose patent. Mucous membranes moist. Has a trach tube. NECK: Supple. No carotid bruits, JVD, or thyromegaly. CHEST: Bilaterally symmetrical. HEART: S1, S2 positive. LUNGS: Clear to auscultation. ABDOMEN: Soft. Bowel sounds positive. No organomegaly. EXTREMITIES: No edema, no cyanosis, but cannot do movement. NEUROLOGIC: The patient is intubated. Cannot do complete neurological examination. LABORATORY DATA: White blood cells 4.3, hemoglobin 11.9, hematocrit 35.9, platelets 142. Sodium 137, potassium 4.3. BUN 22, creatinine 2.4, glucose 106. ASSESSMENT AND PLAN: The patient is a 65-year-old male with leukopenia, anemia , renal insufficiency, history of myocardial infarction, quadruple bypass, history of high uric acid, hypercholesterolemia, diverticulitis, gouty arthritis , chronic kidney disease, came with cerebrovascular accident, intubated to protect his airways. and he had discussion done with the neurologist. He was deemed a candidate for tissue plasminogen activator. Tissue plasminogen activator infusion was given. ICU consult was called, seen by Dr.amar debra moore. After tissue plasminogen activator given, it was found the patient was minimally responsive to verbal and physical stimuli. Neurology consult called. Pulmonary consult called. Neurology had requested CT angio of the brain, however, that was unable to be done at this time, and due to the patient's chronic kidney disease, possibly on chronic kidney disease, as we do not have old labs for comparison. Length of time discussion done with the patient's who was in the Emergency Room, after this, she gave me the complete history. We will continue present treatment. We will follow up. Louisa Bishop MD cc: [id number] TT: 07/06/2016 10:49:27 jn 07/06/2016 10:43:04 PING
--- NOTE | 2016-07-06 13:08 | CON ---
DATE: 07/06/2016 This is a 65-year-old gentleman with history of coronary artery disease status post CABG, hypercholesterolemia, chronic kidney disease who presented to ER for sudden onset of left-sided weakness and slurred speech. The patient was within the time range for TPA and was treated as such. His TPA was given yesterday at 7 p.m. The patient continued to have dense left-sided hemiplegia. Prior to tPA , he was intubated for airway protection. CAT scan also suggested M2 area of occlusion in the right MCA. The patient was transferred to ICU for frequent neuro checks and blood pressure monitoring and management. No nausea, no vomiting, no diarrhea, no constipation. PAST MEDICAL HISTORY: Coronary artery disease, hyperlipidemia, diverticulitis, gout, chronic kidney disease. SURGICAL HISTORY: Appendectomy, quadruple bypass. SOCIAL HISTORY: The patient is a former smoker, however, no alcohol or illicit drug abuse. No tobacco smoking. ALLERGIES: NKDA. MEDICATIONS AT HOME: Aspirin, Coreg, Renvela, Ranexa, allopurinol, Periactin, vitamin D, Lipitor, ramipril, fenofibric acid, nitroglycerin and Plavix. REVIEW OF SYSTEMS: Review of 12 organ system, other than mentioned in history of present illness, is negative. PHYSICAL EXAMINATION: GENERAL: The patient tolerates pressure support trial and is extubated. He is following commands on the right side and unable to move left upper and lower extremity. VITAL SIGNS: Heart rate 82, oxygen saturation 95% on nasal cannula, respiratory rate 23, blood pressure 152/79. HEAD AND NECK: Atraumatic. LUNGS: Clear to auscultation bilaterally. HEART: Regular rate and rhythm. S1, S2 normal. ABDOMEN: Soft, nontender, nondistended. MUSCULOSKELETAL: Trace bilateral pedal and ankle edema. NEUROLOGIC: The patient has dense hemiplegia on the left side including left upper and lower extremity. SKIN: Moist. PSYCHIATRIC: The patient is alert, awake, and follow commands. LABORATORY DATA: WBC 7.5, hemoglobin 12.9, platelet count 157. Sodium 137, potassium 4.3, chloride 99, carbon dioxide 26, BUN 26, creatinine 2.3 (down from 2.4), glucose 87. AST 54, ALT 28. ProBNP 11,800. Troponin 0.04. INR 1.28. ABG 7.42/36/188. CAT scan of the head revealed no hemorrhagic conversion and the same infarct in the right MCA area with a dense clot identified in M2 segment of the right MCA. Discussed with Dr. Stuart and Dr. Michael who said that the patient is outside the time window for any intra-arterial intervention plus, since he did not improve after tPA substantially, would be unlikely candidate as well. Also, M2 segment somewhat more distal than would be optimal for intra-arterial intervention, which also would likely swing pendulum toward no intra-arterial intervention at present time. I would continue with blood pressure systolic below 180 and diastolically low 105s. I will continue to target euvolemia, euglycemia, normothermia and oxygen saturation more than 90%. No aspirin within 24 hours after TPA. Will continue with deep venous thrombosis and gastrointestinal prophylaxis. The patient is extubated and doing well. Neurology followup is pending. Will continue with carotid Doppler, echocardiogram, speech and swallow, physical therapy, early mobilization, and n.p.o. for now. Addendum: Carotid Doppler--acute right carotid artery trombosis--d/w Dr. Moreira ( vascular surgery)--no immediate surgical intervention. Will start TAC with heparin at midnight (discussed and agreed upon with Dr. Michael). Echo: official report pending, but prelim review suspicious for severe LV systolic dysfunction- -will start ACEI for afterload reduction and beta-blockers. Patient passed speech and swallow eval and will start diet. DVT/GI prophylxis, aspiration precautions ccm time 40 min Carlton Mosley MD cc: [id number] TT: 07/06/2016 13:07:36 Confirmation # [id number] Dictation # [id number] dario FENG
[2016-07-06 13:21] VITALS: BMI 26.9
[2016-07-06] MEDS ORDERED: Pneumococcal 23-Valent Vaccine IM ONE (13:21)
--- NOTE | 2016-07-06 16:07 | US ---
PROCEDURE: Bilateral carotid artery duplex ultrasound HISTORY: Carotid stenosis CVA PHYSICIAN(S): Chriss Gale MD. TECHNIQUE: Duplex sonography and color-flow Doppler were used to evaluate the carotid bifurcations and limited segments of the vertebral arteries bilaterally. FINDINGS: There appears to be acute thrombosis of the proximal right internal carotid artery. Minimal plaque is noted at the carotid bifurcation. This may represent an embolic occlusion. The right external carotid artery is patent with normal velocities. There is a high resistance waveform in the right common carotid artery. There is antegrade flow in the right vertebral artery. The peak systolic velocity in the proximal left internal carotid artery is 95 cm/sec. This corresponds to a 20 to 39% proximal left ICA stenosis. Normal systolic velocities are noted in the proximal left external carotid artery. There is antegrade flow in the small left vertebral artery. IMPRESSION: 1. Acute thrombosis of the proximal right internal carotid artery. This may be embolic. 2. 20-39 percent proximal left ICA stenosis. 3. Antegrade flow in both vertebral arteries.
--- NOTE | 2016-07-06 18:52 | CON ---
DATE: 07/06/2016 CHIEF COMPLAINT: Left side weakness. HISTORY OF PRESENT ILLNESS: A 65-year-old man with past medical history of coronary artery disease, hyperlipidemia, gout, diverticulitis, chronic kidney disease, had sudden onset of left side weakness and slurred speech, was in the range for TPA, was status post TPA at 7:00 p.m. on 07/05/2016, has a de nse left hemiplegia and 2 distal occlusions on the right MCA; therefore, he was out of the window for any intra-arterial or interventional management. Currently, still has left hemiplegia he is s lightly sleepy due to right MCA territory infarct. He is on Lipitor. He was found to have also a ro und of atrial fibrillation in the ER. He is on Tricor for hypertriglyceridemia. Case discussed with family at bedside. PAST MEDICAL HISTORY: Coronary artery disease, hyperlipidemia, diverticulitis, gout, chronic kidney disease. SURGICAL HISTORY: Appendectomy, quadruple bypass. SOCIAL HISTORY: Former smoker. No alcohol or illicit drug use. ALLERGIES: No known drug allergies. MEDICATIONS: At home were aspirin, Coreg, Renvela, Ranexa, allopurinol, vitamin D, Lipitor, Avapro, fenofibric acid, nitroglycerin, Plavix. REVIEW OF SYSTEMS: A 14-point review of systems is negative except as in the HPI. PHYSICAL EXAMINATION: VITAL SIGNS: Temperature of 100, pulse rate 95, blood pressure 156/87, respiratory rate 21, oxygen s aturation 96 via room air. GENERAL: The patient is sitting up in bed in no acute distress, extubated. HEENT: Atraumatic, normocephalic. PERRLA. Extraocular muscles intact. NECK: Supple, no JVD, no adenopathy noted. LUNGS: Clear to auscultation. No adventitious sounds. HEART: S1, S2, normal rate and rhythm. No murmurs, rubs, or gallops. ABDOMEN: Soft, nontender, nondistended. Bowel sounds present. EXTREMITIES: No clubbing, no cyanosis. Has trace pedal edema. NEUROLOGIC: The patient is drowsy, in no acute distress. Speech is hypophonic, slight dysarthria. No aphasia noted. Cranial nerves II-XII are intact with mild left facial droop. MOTOR: Has dense left hemiparaplegia, moves right upper and lower extremities. Right toe is downgoi ng, left toe is upgoing. SENSORY EXAM: Withdraws to localized noxious stimulus. Light touch is intact. Proprioception is in tact. DTRs 2+ throughout. COORDINATION: Llexax-ta-vkdu intact on the right. Difficult on the left due to residual left side w eakness. LABORATORIES: Sodium is 137, potassium 4.3, chloride of 99, carbon dioxide of 26, BUN of 26, creatin ine 2.3. Random glucose of 90. A1c is 5.8. ASSESSMENT AND PLAN: This is a nice 65-year-old [place] man with past medical history of gout, dysl ipidemia, hypertriglyceridemia, coronary artery disease, chronic kidney disease, diverticulitis who p resented with left-sided hemiparesis/hemiplegia, found to have a dense M2 segment right MCA territory infarct, which is possible the patient's current present medical status. His M2 segment is somewhat more distal than usual for intra-arterial intervention, he is status post TPA. No aspirin in the 24 hours after TPA. He had a round of paroxysmal atrial fibrillation in the ER. Likely stroke is seco ndary to diffuse atherosclerotic disease superimposed on underlying possible paroxysmal atrial fibril lation At this time, recommend: 1. Continue aspirin and Plavix for now, but may consider aspirin and Coumadin in the future given th at he has a history of paroxysmal atrial fibrillation. Discuss with cardiology. 2. Will need a speech and swallow, PT, OT and acute rehabilitation. 3. Keep his blood pressure between 120 and 130 mmHg. 4. Get an MRI of the brain without contrast. At this time, continue with current present medical yoandy scott. Get also a carotid Doppler. Ferny Michael MD cc: [id number] TT: 07/06/2016 18:51:58 Confirmation # [id number] Dictation # [id number] claudy
--- NOTE | 2016-07-06 19:37 | CARD ---
APPROVED REPORT EXAM: Two-dimensional and M-mode echocardiogram with Doppler and color Doppler. INDICATION STROKE 2D DIMENSIONS Left Atrium (2D)5.4 (1.6-4.0cm)IVSd1.3 (0.7-1.1cm) LVDd5.7 (3.9-5.9cm)PWd1.2 (0.7-1.1cm) LVDs5.0 (2.5-4.0cm)FS (%) 12.4 % LVEF (%)26.1 (>50%) M-Mode DIMENSIONS Aortic Root4.00 (2.2-3.7cm)Aortic Cusp Exc.1.50 (1.5-2.0cm) Aortic Valve AoV Peak Odqjnvei296.0cm/Yuriy Peak GR.7mmHgAI P 1/2 [id number] Mitral Valve E/A ratio0.0 TDI E/Lateral E'0.0E/Medial E'0.0 Pulmonary Valve PV Peak Gmugrzvf09.1cm/sPV Peak Grad.2mmHg Tricuspid Valve TR Peak [id number]/sRAP [id number] Peak Gr.54mmHg [id number] LEFT VENTRICLE The left ventricle is normal size. There is mild concentric left ventricular hypertrophy. The systolic function is severely impaired. No left ventricle thrombus noted on this study. RIGHT VENTRICLE The right ventricle is normal size. There is normal right ventricular wall thickness. The right ventricular systolic function is normal. ATRIA The left atrium is moderately dilated. The right atrium is moderately dilated. AORTIC VALVE The aortic valve is mildly thickened. There is moderate aortic regurgitation. MITRAL VALVE Mitral regurgitation is moderate. TRICUSPID VALVE There is severe tricuspid regurgitation. There is moderate to severe pulmonary hypertension. PULMONIC VALVE There is mild pulmonic valvular regurgitation. GREAT VESSELS The aortic root is mildly enlarged. <Conclusion> There is moderate aortic regurgitation. Mitral regurgitation is moderate. There is severe tricuspid regurgitation. There is moderate to severe pulmonary hypertension. There is mild concentric left ventricular hypertrophy. The systolic function is severely impaired. No left ventricle thrombus noted on this study.
--- NOTE | 2016-07-06 23:08 | CARD ---
APPROVED REPORT EKG Measurement Heart [id number] <Conclusion> Atrial fibrillation with rapid ventricular response with premature ventricular or aberrantly conducted complexes Right bundle branch block Inferior infarct, age undetermined Abnormal ECG
[2016-07-06] MEDS ORDERED: Heparin25000 units/250ml 1/2NS 25,000 UNITS/250 ML BAG IV PRN (23:51)
[2016-07-07] MEDS: Heparin25000 units/250ml 1/2NS 25,000 UNITS/250 ML BAG IV PRN ×2 (01:00→22:44)
[2016-07-07 02:52] LABS: INR 1.27 (0.93-1.08); PARTIAL THROMBOPLASTIN TIME 27.7 Seconds (23.7-30.8)
[2016-07-07 05:46] LABS: ARTERIAL BLOOD GAS HCO3 25.6 mmol/L (21-28); ARTERIAL BLOOD GAS O2 CAPACITY 16.8 mL/dl (16-24); ARTERIAL BLOOD GAS O2 CONTENT 16.4 ML/dl (15-23); ARTERIAL BLOOD GAS PH 7.46 (7.35-7.45); ARTERIAL BLOOD HGB O2 SAT 95.4 % (95.0-98.0); CARBOXYHEMOGLOBIN 1.9 % (0.5-1.5); METHEMOGLOBIN 0.8 % (0.0-3.0)
--- NOTE | 2016-07-07 06:18 | CON ---
DATE: 07/06/2016 REFERRING PHYSICIAN: Louisa Bishop MD REASON FOR CONSULT: Status post stroke, may have sleep apnea syndrome. HISTORY OF PRESENT ILLNESS: This is a 65-year-old gentleman with past medical history significant fo r coronary artery disease, history of coronary artery bypass surgery, [place], renal insufficiency, had th e sudden onset of left-sided weakness, slurred speech, expressive aphasia brought in to the [facility] Room, received thrombolytic therapy with significantly improved symptoms, david ecially the lower extremities. Still has some left upper extremity weakness with expressive aphasia. He was intubated, presently extubated on room air with head up at 45 degrees. Has a history of caity d snoring, daytime sleepy and tired. At present, there is no headache, no nausea, no vomiting, no di arrhea. No leg pain or leg swelling. PAST MEDICAL HISTORY: Coronary artery disease, history of coronary bypass surgery, renal insufficien cy. SOCIAL HISTORY: He is a smoker. Does drink excessive alcohol. ALLERGIES: None known. FAMILY HISTORY: No significant cardiopulmonary disease reported. MEDICATIONS: He is on hydralazine 10 mg stat was given Esmolol IV, Lipitor 10 mg daily, Protonix 40 mg daily, Ranexa one tab q. 12 hours Ranexa 800 mg, Tricor 145 mg daily, Zyloprim 200 mg daily. REVIEW OF SYSTEMS: No headache, no rhinitis. Admits to loud snoring, daytime sleepy and tired. No chest pain, no nausea, no vomiting, no diarrhea, no dysuria, no leg pain or swelling. Has left upper extremity weakness. PHYSICAL EXAMINATION: GENERAL: Sleepy. VITAL SIGNS: Temp is 100, heart rate is 95, respiratory rate is 20, blood pressure 156/87, pulse ox 97% on nasal cannula. HEENT: Small oral cavity. Crowded airway. Mallampati score is 4. NECK: Supple. No JVD. LUNGS: Has a fair airflow with few rhonchi. HEART: S1 and S2. ABDOMEN: Soft, nontender. No organomegaly. EXTREMITIES: There is no edema. NEUROLOGIC: Sleepy, arousable, follows simple commands. Has left upper extremity weakness, expressi ve aphasia. LABORATORY DATA: Shows hemoglobin 12.9, hematocrit 38.3, WBC 7.5, platelet count is 157. INR 1.28, PTT 25. Blood gases shows pH 7.42, pCO2 of 36, O2 is 188; that was on ventilator. Sodium 137, potas sium 4.3, chloride 99, bicarbonate 26, BUN 26, creatinine 2.3, glucose 90, calcium is 9.8, phosphorus is 4.7, magnesium 1.8, total bili 1.9, AST 54, ALT 28, alk phos is 28. Troponin 0.04; ProBNP 11,800 . Albumin is 3.9. Urine shows protein, otherwise unremarkable. Last CAT scan of the head done this morning shows there is an acute infarct in the right temporal lob e, right frontal lobe and a portion of the right occipital lobe. There is mild mass effect and effac ement of the sulci and loss of the mariscal-white differentiation, hyperdense M2 segment of the right mid dle cerebral arteries seems consistent with thrombus. Had echocardiogram done today, which shows right ventricular systolic pressure is 64, mitral regurg i s moderate, severe tricuspid regurg, moderate to severe pulmonary hypertension, concentric left ventr icular hypertrophy, systolic function is severely impaired. Carotid artery ultrasound shows acute thrombus of the proximal right internal carotid artery. IMPRESSION AND PLAN: Acute stroke, probably thrombotic event, history of coronary artery disease, co ronary bypass surgery, severe cardiomyopathy, pulmonary hypertension, may have a component of sleep a pnea syndrome, also with paroxysmal atrial fibrillation. Started on platelet inhibitors. Gastric pr ophylaxis. We will start him on BiPAP 10/7 with 35% oxygen. May need to consult neuro intervention. we will speak to neurology. Case discussed with the family at bedside. All their questions answer ed. Thank you. We will follow with you. Heldre David MD cc: [id number] TT: 07/07/2016 06:17:42 Confirmation # [id number] Dictation # [id number] josué
--- NOTE | 2016-07-07 07:02 | PN ---
DATE: 07/06/2016 SUBJECTIVE: The patient was seen and examined on the bedside. Still feeling weakness in the left upper extremity, opening eyes, extubated. was sitting on the one side. Son and [id number] were sitting on the other side. Status post TPA yesterday, has dense left hemiplegia and 2 distal occlusions of the right , where he was out of the window for an intraarterial or interventional management as per neurology. Still has left upper extremity weakness, sleepy. PHYSICAL EXAMINATION: VITAL SIGNS: Temperature is 100, pulse 95, blood pressure 152/84 and respiratory rate 21, oxygenation 96% on room air. HEENT: Head normocephalic, atraumatic. Eyes closed, opening once in a while. Extraocular muscles intact. Conjunctivae clear. Nose patent. Mucous membranes moist. NECK: Supple. No carotid bruit, JVD or thyromegaly. LUNGS: Clear to auscultation. No adventitious sounds. HEART: S1, S2 positive. Normal rate and rhythm. No murmur, rubs or gallop. ABDOMEN: Soft, nontender. No organomegaly. EXTREMITIES: No clubbing, no cyanosis. Has trace pitting edema. Left upper extremity movement is 0. NEUROLOGIC: The patient is drowsy, no acute distress. Speech is hypophonic, slight dysarthria. No aphasia. Cranial nerves II-XII were grossly intact with mild left facial droop, has dense left hemiplegia. Moves the right upper and lower extremities. Right toe is downwards. Left toe is upward. LABORATORY DATA: Sodium 137, potassium 4.3, BUN 26, creatinine 2.3, glucose 90 , hemoglobin A1c 5.8. ASSESSMENT AND PLAN: The patient is a 65-year-old French male with a history of multiple medical problems, gouty arthritis, dysarthria, hypercholesterolemia , coronary artery disease, chronic kidney disease, diverticulitis, came with left-sided hemiparesis/hemiplegia, found to have dense right middle cerebral artery territory infarction which is possibly the patient's currently present medical status, status post tissue plasminogen activator. No aspirin 24 hours after tissue plasminogen activator. He had a round of paroxysmal atrial fibrillation in [facility] Likely stroke is secondary to diffuse atherosclerotic disease superimposed on underlying possible paroxysmal atrial fibrillation. If the patient ,atrial fibrillation, maybe he needs blood thinner later on. Length of time discussion done with Dr. David and the patient's and son. All questions answered. May need speech and swallow evaluation, physical therapy, out of bed, needs acute rehabilitation. Keep his blood pressure between 120-130. Get an MRI of the brain without contrast as per neurology. Carotid artery ultrasound reviewed by me. Dr. Mosley's notes reviewed by me. CAT scan of the head reviewed by me. Gastrointestinal and deep venous thrombosis prophylaxis. Repeat labs. We will follow up. Louisa Bishop MD cc: [id number] TT: 07/07/2016 07:01:45 Confirmation # [id number] Dictation # [id number] MTDD
--- NOTE | 2016-07-07 07:07 | CP.PCM.CON ---
History of Present Illness - History of Present Illness History of Present Illness: Vascular Surgery Consult Note: Dr. Moreira 65M w/ PMHx of CAD, diverticulitis, CKD, hyperlipidemia, was brought to the ED on 07/05 after he developed sudden onset left sided weakness and slurred speech, code stroke was called in ED. Patient was intubated. According to medical records patient was at range for TPA therapy, thus it was administered. Patient was found to have distal occlusions on the right middle cerebral artery. Upon admission to ICU patient still had left hemiplegia. 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 On echo patient was noted to have an EF of 26%. At time of examination this morning, patient was extubated and on BiPAP. Patient found to be tolerating BiPAP and vital signs were stable. He is able to follow commands. This morning patient was able to engage his left hip flexor as well as his fingers of left hand. Patient remains unable to flex/extend at the knee and remains unable to abduct at the shoulder joint. PMHx: as stated above PSurgHx: appendectomy, quadruple bypass Meds: Review MAR Review of Systems - Review of Systems Systems not reviewed;Unavailable: Other Review of Systems: on BiPAP - Constitutional Constitutional: Fever Past Patient History - Infectious Disease Hx of Infectious Diseases: None - Past Social History Smoking Status: Light Smoker < 10 Cigarettes Daily - CARDIAC Hx Cardiac Disorders: Yes - RENAL Hx Renal Failure: Yes - HEMATOLOGICAL/ONCOLOGICAL Other/Comment: "high uric acid", on renvela for high creatnine levels - INTEGUMENTARY Other/Comment: multiple skin discolorations ble, dry scabs to lle - MUSCULOSKELETAL/RHEUMATOLOGICAL Hx Falls: No - GASTROINTESTINAL Hx Diverticulitis: Yes - PSYCHIATRIC Hx Substance Use: No - SURGICAL HISTORY Hx Appendectomy: Yes Other/Comment: Quadruple bypass - ANESTHESIA Hx Anesthesia: Yes Hx Anesthesia Reactions: No Hx Malignant Hyperthermia: No Meds Allergies/Adverse Reactions: Allergies Allergy/AdvReac Type Severity Reaction Status Date / Time No Known Allergies Allergy Verified 07/05/16 19:31 - Medications Medications: Current Medications Allopurinol (Zyloprim) 200 mg PO DAILY [facility] Last Admin: 07/06/16 11:00 Dose: Not Given Atorvastatin Calcium (Lipitor) 10 mg PO HS [facility] Last Admin: 07/06/16 22:30 Dose: 10 mg Fenofibrate (Tricor) 145 mg PO DAILY [facility] Last Admin: 07/06/16 11:00 Dose: Not Given Esmolol HCl (Brevibloc) 250 mls @ 24.072 mls/hr IV .[id number] NEEL; 50 MCG/KG/MIN PRN Reason: Protocol Last Titration: 07/06/16 20:00 Dose: 0 mcg/kg/min, 0 mls/hr Heparin Sodium/Sodium Chloride (Heparin 98370 Units/250ml 1/2 Normal Saline) 25 ,000 units in 250 mls @ 12.81 mls/hr IV .[id number] PRN; Protocol; 18 UNITS/KG/HR PRN Reason: ADJUST RATE PER PROTOCOL Last Admin: 07/07/16 01:00 Dose: 18 units/kg/hr, 12.81 mls/hr Non-Formulary Medication (Ranolazine [Ranexa]) 1 tab PO Q12H [facility] Last Admin: 07/06/16 22:30 Dose: Not Given Pantoprazole Sodium (Protonix Inj) 40 mg IVP DAILY [facility] Last Admin: 07/06/16 09:48 Dose: 40 mg Sevelamer HCl (Renagel) 800 mg PO WM [facility] Last Admin: 07/06/16 18:36 Dose: Not Given Physical Exam - Constitutional Appears: No Acute Distress, Older Than Stated Age - Head Exam Head Exam: NORMOCEPHALIC - Eye Exam Eye Exam: EOMI. absent: Nystagmus, Scleral icterus - ENT Exam ENT Exam: Mucous Membranes Moist - Neck Exam Neck exam: Positive for: Normal Inspection - Respiratory Exam Respiratory Exam: NORMAL BREATHING PATTERN - Cardiovascular Exam Cardiovascular Exam: +S1, +S2 Additional comments: +murmur - GI/Abdominal Exam GI & Abdominal Exam: Soft. absent: Distended, Firm, Guarding, Tenderness - Extremities Exam Extremities exam: Negative for: pedal edema Additional comments: Able to move right upper extremity on command, no deficits Able to move right lower extremity Able to flex at the hip with left lower extremity, unable to flex/extend at knee , unable to move toes Unable to flex/extended at left elbow joint, however has some movement on left hand when told to squeeze - Neurological Exam Neurological exam: Alert - Skin Skin Exam: Dry, Warm Results - Vital Signs Recent Vital Signs: Last Vital Signs Temp 99.8 F H 07/07/16 04:32 Pulse 80 07/07/16 06:00 Resp 34 H 07/07/16 06:00 BP 158/90 H 07/07/16 06:00 Pulse Ox 100 07/07/16 06:00 - Labs Result Diagrams: 07/07/16 06:55 07/07/16 06:55 Labs: Laboratory Results - last 24 hr 07/06/16 07/06/16 07/06/16 05:30 09:30 09:30 WBC 7.5 D RBC 4.38 Hgb 12.9 L Hct 38.3 L MCV 87.4 MCH 29.5 MCHC 33.7 RDW 14.9 H Plt Count 157 MPV 10.6 PT INR APTT pCO2 36 pO2 188.0 H HCO3 23.4 ABG pH 7.42 ABG Total CO2 24.5 ABG O2 Saturation 99.2 H ABG O2 Content 16.9 ABG Base Excess -0.7 ABG Hemoglobin 12.1 ABG Carboxyhemoglobin 1.2 POC ABG HHb (Measured) 0.8 ABG Methemoglobin 0.8 ABG O2 Capacity 17.0 Hgb O2 Saturation 97.2 FiO2 100.0 Sodium 137 Potassium 4.3 Chloride 99 Carbon Dioxide 26 Anion Gap 16 BUN 26 H Creatinine 2.3 H Est GFR ( Amer) 34 Est GFR (Non-Af Amer) 29 POC Glucose (mg/dL) Random Glucose 87 Calcium 9.8 Phosphorus 4.7 H Magnesium 1.8 Total Bilirubin 1.9 H AST 54 ALT 28 Alkaline Phosphatase 28 L Troponin I Total Protein 7.7 Albumin 3.9 Globulin 3.8 Albumin/Globulin Ratio 1.0 L 07/06/16 07/06/16 07/06/16 11:45 11:59 21:09 WBC RBC Hgb Hct MCV MCH MCHC RDW Plt Count MPV PT INR APTT pCO2 pO2 HCO3 ABG pH ABG Total CO2 ABG O2 Saturation ABG O2 Content ABG Base Excess ABG Hemoglobin ABG Carboxyhemoglobin POC ABG HHb (Measured) ABG Methemoglobin ABG O2 Capacity Hgb O2 Saturation FiO2 Sodium Potassium Chloride Carbon Dioxide Anion Gap BUN Creatinine Est GFR ( Amer) Est GFR (Non-Af Amer) POC Glucose (mg/dL) 90 119 H Random Glucose Calcium Phosphorus Magnesium Total Bilirubin AST ALT Alkaline Phosphatase Troponin I 0.04 Total Protein Albumin Globulin Albumin/Globulin Ratio 07/07/16 07/07/16 00:41 05:30 WBC RBC Hgb Hct MCV MCH MCHC RDW Plt Count MPV PT 13.7 H INR 1.27 H APTT 27.7 pCO2 36 pO2 77.0 L HCO3 25.6 ABG pH 7.46 H ABG Total CO2 26.7 ABG O2 Saturation 97.9 ABG O2 Content 16.4 ABG Base Excess 1.9 ABG Hemoglobin 12.2 ABG Carboxyhemoglobin 1.9 H POC ABG HHb (Measured) 2.0 ABG Methemoglobin 0.8 ABG O2 Capacity 16.8 Hgb O2 Saturation 95.4 FiO2 32.0 Sodium Potassium Chloride Carbon Dioxide Anion Gap BUN Creatinine Est GFR ( Amer) Est GFR (Non-Af Amer) POC Glucose (mg/dL) Random Glucose Calcium Phosphorus Magnesium Total Bilirubin AST ALT Alkaline Phosphatase Troponin I Total Protein Albumin Globulin Albumin/Globulin Ratio Assessment & Plan - Assessment and Plan (Free Text) Assessment: 65M w/ thrombosis of the right internal carotid artery -No acute surgical intervention at this present time -Monitor mental status -Neuro recs appreciated -Cardio recs appreciated -F/u MRA -F/u brain MRI -C/w medical treatment as per ICU team -Further recs per Dr. Moreira
[2016-07-07 07:26] LABS: MEAN CELL VOLUME 86.7 fL (80.0-105.0); MEAN CORPUSCULAR HEMOGLOBIN 29.7 pg (25.0-35.0); MEAN CORPUSCULAR HGB CONC 34.3 g/dl (31.0-37.0); MEAN PLATELET VOLUME 10.3 fl (7.0-11.0); RED CELL DISTRIBUTION WIDTH 14.9 % (11.5-14.5); WHITE BLOOD COUNT 7.8 10^3/ul (4.5-11.0)
[2016-07-07 07:38] LABS: ALB/GLOB RATIO 1.1 (1.1-1.8); BILIRUBIN,TOTAL 2.1 mg/dL (0.2-1.3); CALCIUM 9.3 mg/dL (8.4-10.5); MAGNESIUM 1.9 mg/dL (1.7-2.2); PHOSPHOROUS 3.3 mg/dL (2.5-4.5); TOTAL PROTEIN 7.4 g/dL (5.8-8.3)
[2016-07-07] MEDS: Esmolol Hcl 2500mg/250ml NAC 250 ML IV SCH ×4 (07:51→16:40)
[2016-07-07] MEDS: RANOLAZINE PO SCH ×2 (10:30→21:56)
--- NOTE | 2016-07-07 12:21 | MRI ---
PROCEDURE: MRI BRAIN WITHOUT CONTRAST HISTORY: left sided stroke COMPARISON: CT 07/06/2016 TECHNIQUE: Multiplanar, multisequence MR images of the brain were obtained without intravenous contrast enhancement. FINDINGS: HEMORRHAGE: None DWI: There is an extensive acute infarct in the distribution of the middle cerebral artery. This involves the frontal temporal and parietal lobes as well as the basal ganglia and periventricular white matter. BRAIN PARENCHYMA: Effacement of the sulci right hemisphere. No midline shift VENTRICLES: Unremarkable. No hydrocephalus. CRANIUM: Unremarkable. ORBITS: Grossly unremarkable. PARANASAL SINUSES/MASTOIDS: Multiple fluid levels in the maxillary and sphenoid sinus VASCULAR SYSTEM: There is persistent thrombus in the right middle cerebral artery seen on T1 image 12 series 8 OTHER FINDINGS: None. IMPRESSION: Extensive acute infarct in the right hemisphere in the distribution of the right middle cerebral artery
--- NOTE | 2016-07-07 12:27 | MRI ---
PROCEDURE: Magnetic Resonance Angiography Brain HISTORY: evaluate carotid thrombis COMPARISON: None available. TECHNIQUE: 3D time of flight MR angiography of the intracranial arteries was performed. Rotating maximum intensity projection images were generated. FINDINGS: INTERNAL CEREBRAL ARTERIES: Unremarkable. The skull base, petrous, cavernous and supraclinoid segments are bilaterally widely patient. ANTERIOR CEREBRAL ARTERIES: Unremarkable. A1 and A2 segments are widely patent. Smaller distal branches unremarkable, as visualized. MIDDLE CEREBRAL ARTERIES: There is a thrombus in the proximal right middle cerebral artery extending into supraclinoid carotid. This corresponds to the thrombus visualized on CT and the extensive right-sided MCA distribution infarct POSTERIOR CIRCULATION: Basilar Artery: Unremarkable. Distal Vertebral Arteries: Unremarkable. Posterior Cerebral Arteries: Unremarkable. Posterior Inferior Cerebellar Arteries: Unremarkable. ANEURYSM/ VASCULAR MALFORMATIONS: None. OTHER FINDINGS: None. IMPRESSION: There is a thrombus in the proximal right middle cerebral artery extending into supraclinoid carotid. This corresponds to the thrombus visualized on CT and the extensive right-sided MCA distribution infarct
--- NOTE | 2016-07-07 12:32 | MRI ---
PROCEDURE: MR Angiography of the neck without contrast HISTORY: evaluate for thrombus COMPARISON: None available. TECHNIQUE: 3D [id number] angiography of the neck was performed. Rotating maximum intensity projection images of the cervical carotid and vertebral arteries were generated. The origins of the common carotid arteries were not visualized, which is a limitation inherent to the non-contrast time of flight technique. FINDINGS: RIGHT CAROTID ARTERIES: Common Carotid Artery: Normal. Carotid Bifurcation: Normal. Internal Carotid Artery:Normal. External Carotid Artery (proximal branches): Normal. LEFT CAROTID ARTERIES: Common Carotid Artery: Normal. Carotid Bifurcation: Normal. Internal Carotid Artery:Normal. External Carotid Artery (proximal branches): Normal. VERTEBRAL ARTERIES: Right Vertebral Artery: Normal. Left Vertebral Artery: Normal. OTHER FINDINGS: None. IMPRESSION: No evidence of significant stenosis or thrombus in the carotid arteries
--- NOTE | 2016-07-07 12:56 | CP.PCM.PN ---
Subjective - Date & Time of Evaluation Date of Evaluation: 07/07/16 Time of Evaluation: 12:15 - Subjective Subjective: Patient: RAS MONTES Unit: [id number] : 1950 Loc: CCU Room/Bed: 129-05 Age/Sex: 65 / M ADM Status: ADM IN ADM Date: DIS Date: Progress note: DATE: 07/07/2016 CHIEF COMPLAINT: F/U for Left side weakness. SUBJECTIVE: Currently, still has left hemiplegia and is slightly sleepy due to right MCA territory infarct. He is on Lipitor. He was found to have also a round of atrial fibrillation in the ER. He is on Tricor for hypertriglyceridemia. He has acute right carotid thrombus , can not get CTA neck due to his creatinine elevation for CKD. Patient was placed on Heparin overnight to disolve the clot. Case discussed with family at bedside. PAST MEDICAL HISTORY: Coronary artery disease, hyperlipidemia, diverticulitis, gout, chronic kidney disease. SURGICAL HISTORY: Appendectomy, quadruple bypass. SOCIAL HISTORY: Former smoker. No alcohol or illicit drug use. ALLERGIES: No known drug allergies. MEDICATIONS: At home were aspirin, Coreg, Renvela, Ranexa, allopurinol, vitamin D, Lipitor, Avapro, fenofibric acid, nitroglycerin, Plavix. REVIEW OF SYSTEMS: A 14-point review of systems is negative except as in the HPI. PHYSICAL EXAMINATION: VITAL SIGNS: Reviewed. GENERAL: The patient is sitting up in bed in no acute distress, extubated. HEENT: Atraumatic, normocephalic. PERRLA. Extraocular muscles intact. NECK: Supple, no JVD, no adenopathy noted. LUNGS: Clear to auscultation. No adventitious sounds. HEART: S1, S2, normal rate and rhythm. No murmurs, rubs, or gallops. ABDOMEN: Soft, nontender, nondistended. Bowel sounds present. EXTREMITIES: No clubbing, no cyanosis. Has trace pedal edema. NEUROLOGIC: The patient is drowsy, in no acute distress. Speech is hypophonic , slight dysarthria. No aphasia noted. Cranial nerves II-XII are intact with mild left facial droop. MOTOR: Has dense left hemiparaplegia, moves right upper and lower extremities. Right toe is downgoing, left toe is upgoing. SENSORY EXAM: Withdraws to localized noxious stimulus. Light touch is intact. Proprioception is intact. DTRs 2+ throughout. COORDINATION: [id number] intact on the right. Difficult on the left due to residual left side weakness. LABORATORIES: Reviewed. ASSESSMENT AND PLAN: This is a nice 65-year-old [place] man with past medical history of gout, dyslipidemia, hypertriglyceridemia, coronary artery disease, chronic kidney disease, diverticulitis who presented with left-sided hemiparesis/hemiplegia, found to have a dense M2 segment right MCA territory infarct, which is possible the patient's current present medical status. His M2 segment is somewhat more distal than usual for intra-arterial intervention, he is status post TPA past 24hrs ago. He had a round of paroxysmal atrial fibrillation in the ER. He has acute right carotid thrombus , can not get CTA neck due to his creatinine elevation for CKD. Patient was placed on Heparin overnight to disolve the clot. His cardiac output is poor with low EF. Likely stroke is secondary to diffuse atherosclerotic disease superimposed on underlying possible paroxysmal atrial fibrillation and poor cardaic output creating clots. At this time, recommend: 1. On heparin for carotid right thrombus. Will need coumadin and ASa 81 mg po in future given history of poor cardiac function, paroxsymal afib with positive CVA. 2. Will need a speech and swallow, PT, OT and acute rehabilitation. 3. Keep his blood pressure between 120 and 130 mmHg. 4. Continue with current mx. Ferny Michael MD Objective - Vital Signs/Intake and Output Vital Signs (last 24 hours): Temp Pulse Resp BP Pulse Ox 99.8 F H 83 24 157/92 H 100 07/07/16 04:32 07/07/16 07:00 07/07/16 07:00 07/07/16 07:00 07/07/16 08:00 Intake and Output: 07/07/16 07/07/16 06:59 18:59 Intake Total 140 50 Output Total 425 Balance -285 50 - Medications Medications: Current Medications Allopurinol (Zyloprim) 200 mg PO DAILY [facility] Last Admin: 07/07/16 10:29 Dose: 200 mg Aspirin (Aspirin Chewable) 81 mg PO DAILY [facility] Atorvastatin Calcium (Lipitor) 10 mg PO HS [facility] Last Admin: 07/06/16 22:30 Dose: 10 mg Fenofibrate (Tricor) 145 mg PO DAILY [facility] Last Admin: 07/07/16 10:30 Dose: 145 mg Esmolol HCl (Brevibloc) 250 mls @ 24.072 mls/hr IV .[id number] NEEL; 50 MCG/KG/MIN PRN Reason: Protocol Last Admin: 07/07/16 07:53 Dose: Not Given Heparin Sodium/Sodium Chloride (Heparin 31181 Units/250ml 1/2 Normal Saline) 25 ,000 units in 250 mls @ 12.81 mls/hr IV .[id number] PRN; Protocol; 18 UNITS/KG/HR PRN Reason: ADJUST RATE PER PROTOCOL Last Titration: 07/07/16 09:08 Dose: 15.03 units/kg/hr, 10.7 mls/hr Non-Formulary Medication (Ranolazine [Ranexa]) 1 tab PO Q12H [facility] Last Admin: 07/07/16 10:30 Dose: Not Given Pantoprazole Sodium (Protonix Inj) 40 mg IVP DAILY [facility] Last Admin: 07/07/16 10:29 Dose: 40 mg Sevelamer HCl (Renagel) 800 mg PO WM [facility] Last Admin: 07/07/16 12:00 Dose: Not Given - Labs Labs: 07/07/16 06:55 07/07/16 06:55 PT 13.7 Seconds (9.9-11.8) H 07/07/16 00:41 INR 1.27 (0.93-1.08) H 07/07/16 00:41 APTT 145.2 Seconds (23.7-30.8) H* 07/07/16 07:05
--- NOTE | 2016-07-07 15:36 | PN ---
DATE: 07/07/2016 The patient seen and examined at bedside. He is comfortable. He is somewhat somnolent, however, easily responding to command. He finished his breakfast and comfortably sitting in the chair. He passed speech and swallow evaluation yesterday. PHYSICAL EXAMINATION: VITAL SIGNS: Blood pressure 157/92, heart rate 83, respiratory rate 24, oxygen saturation 100% on nasal cannula. HEAD AND NECK: Atraumatic. LUNGS: Clear to auscultation bilaterally. HEART: Regular rate and rhythm. S1, S2 normal. ABDOMEN: Soft, nontender, nondistended. MUSCULOSKELETAL: No C/C/E. NEUROLOGIC: The patient has left hemiplegia. No motor deficit on the right side. SKIN: Moist. PSYCHIATRIC: The patient is somewhat somnolent. LABORATORY DATA: WBC 7.8, hemoglobin 12.7, platelet count 147. Sodium 137, potassium 4, chloride 100, carbon dioxide 28, BUN 24, creatinine 2.1 (down from 2.3), glucose 119. AST 43, ALT 28. Troponin x 2 negative. AB.46/36/77. Echocardiogram revealed moderate aortic regurgitation, severe tricuspid regurgitation, moderate to severe pulmonary hypertension, severely impaired systolic function normal; no left ventricle thrombus. Head MRA showed thrombus in the proximal right middle cerebral artery extending into supraglenoid carotid. This corresponds to the thrombus visualized and CAT scan and extensive right-sided MCA distribution infarct. Neck MRA showed no evidence of significant stenosis or thrombus in the carotid arteries. ASSESSMENT AND PLAN: This is a 65-year-old gentleman with M2 (Sylvian segment) right middle cerebral artery occlusion. Because of presence of acute thrombosis yesterday on the carotid ultrasound, he was started on therapeutic anticoagulation with heparin and vascular consult was emergently requested. As per Dr. Moreira, no immediate intervention needed at that time. At present time, patient was started on aspirin as well. Had severe left ventricular systolic dysfunction and was started on beta blockers. I will touch base with Dr. Valverde whether MONIKA inhibitors in the setting of mild renal insufficiency would provide more benefit than risk. Will continue with physical therapy, out of bed to chair, optimization of his oral nutrition. Will continue with supportive measures. Will continue to target euvolemia, euglycemia, normothermia and oxygen saturation more than 90%. Neurology followup is appreciated. Will continue with DVT and GI prophylaxis. ccm time 40 min Carlton Mosley MD cc: [id number] TT: 07/07/2016 15:35:36 Confirmation # [id number] Dictation # [id number] mn MTDD
--- NOTE | 2016-07-07 17:14 | CON ---
DATE: 07/07/2016 HISTORY OF PRESENT ILLNESS: The patient is a 65-year-old male who presents with a new CVA. PAST MEDICAL HISTORY: Notable for history of coronary artery bypass surgery, history of an ischemic dilated cardiomyopathy with an ejection fraction in the 20% range. He is also in atrial fibrillation, in which he was not on anticoagulation. The patient is currently being treated with Ranexa and Coreg as well as atorvastatin and aspirin at h ome. The patient denies chest pain, but a full history is not obtainable. PHYSICAL EXAMINATION: VITAL SIGNS: Blood pressure 157/92, heart rate is atrial fibrillation in the 80s. NECK: Negative JVD. LUNGS: Decreased breath sounds without rales. HEART: Reveals S1, S2. EXTREMITIES: Without edema. EKG RESULTS: EKG shows atrial fibrillation with nonspecific ST-T changes. LABORATORIES: The hemoglobin is 12.7. Chemistries: Troponins are 0.04, BUN and creatinine is 24 an d 2.1. IMPRESSION: 1. Cerebrovascular accident, which is likely due to embolic phenomenon. 2. Atrial fibrillation. 3. End-stage ischemic dilated cardiomyopathy. 4. Renal insufficiency. 5. History of coronary artery bypass surgery. 6. Coronary artery disease. 7. Hypercholesterolemia. PLAN: Given these findings, the patient needs to be fully anticoagulated as long as there is no evide nce of intracerebral bleed from CVA. We will need to speak with his roll cutter, whether the patient has been considered for anticoagulat ion in the past, whether the atrial fibrillation is recent or old, and the possibility of evaluation for ICD. Chriss Valverde MD cc: [id number] TT: 07/07/2016 17:13:41 Confirmation # [id number] Dictation # [id number]
--- NOTE | 2016-07-07 17:18 | PN ---
DATE: 07/07/2016 REFERRING PHYSICIAN: Dr. Bishop. SUBJECTIVE: He is out of bed to chair, feels much better, using his cell phone with his right hand, tolerated BiPAP well last night. No cough, no sputum production, no nausea, no vomiting, diarrhea. Upper extremity strength is much better but leg is still weak. OBJECTIVE: GENERAL: No acute distress. VITAL SIGNS: Temperature is 98, heart rate is 83, respiratory rate is 20, blood pressure 157/92, pu lse ox 100% on nasal cannula. HEENT: Small oral cavity. Crowded airway. NECK: Supple. No JVD. LUNGS: Has a fair airflow with few rhonchi. HEART: S1, S2. ABDOMEN: Soft, nontender. No organomegaly. EXTREMITIES: There is no edema. NEUROLOGIC: Awake, alert, follows simple commands. MEDICATIONS: He is on Altace 5 mg daily, aspirin 81 mg daily. Still on esmolol IV, heparin IV weig ht based protocol, Lipitor 10 mg daily, metoprolol tartrate 25 mg twice a day, Protonix 40 mg daily, Bumex 1 tab q. 12 hours, vitamin with meals, Tricor 145 mg daily, allopurinol 200 mg daily. LABORATORY DATA: Shows hemoglobin 12.7, hematocrit 37.0, WBC 7.8, platelet is 147. PTT is 145. Blo od gases shows pH 7.46, pCO2 of 36/77 with nasal cannula. Sodium 137, potassium 4.0, chloride 100, b icarbonate 28, BUN 24, creatinine 2.1, glucose 88, calcium is 9.3, phosphorus 3.3, AST 43, ALT 28, al kaline phosphatase is 30, albumin is 3.8. MICROBIOLOGY: Blood cultures, urine culture, there is no growth. MRA of the neck and head done toda y, which shows no evidence of and thrombus in the carotid arteries. MRA of the head showed th ere is a thrombus in the proximal right middle cerebral artery extending into the supraclinoid caroti d. An extensive right side MCA right distribution infarct. IMPRESSION AND PLAN: Acute stroke requiring thrombolytic therapy presently on IV heparin, history of coronary artery disease, history of coronary bypass surgeries, severe cardiomyopathy, pulmonary hype rtension, paroxysmal atrial fibrillation, sleep apnea syndrome. Case discussed in detail last night with . Vascular was consulted for possible thrombectomy. Presently, I will continue to en courage BiPAP use at nighttime. Keep head elevated at 45 degrees. Continue anticoagulation and antonio maty prophylaxis, and physical therapy. Follow up labs in the morning. Critical care time was more than 35 minutes. I will follow with you. Helder David MD cc: [id number] TT: 07/07/2016 17:17:41 Confirmation # [id number] Dictation # [id number] dn
--- NOTE | 2016-07-08 15:05 | PN ---
DATE: 07/08/2016 SUBJECTIVE: The patient's breathing is better on BiPAP. No chest pain noted. PHYSICAL EXAMINATION: VITAL SIGNS: Blood pressure is stable. Heart rate is atrial fibrillation in the 80s-90s. NECK: Negative JVD. LUNGS: Without rales. HEART: Reveals S1, S2. EXTREMITIES: Without edema. LABORATORIES: Unavailable due to our computer systems being down. IMPRESSION: 1. Respiratory distress, which is improved. 2. Coronary artery disease. 3. Dilated cardiomyopathy. 4. Atrial fibrillation. PLAN: Given these findings, we need to rule out any contraindications to possible long-term anticoag ulation for atrial fibrillation. Chriss Valverde MD cc: [id number] TT: 07/08/2016 10:41:44 Confirmation # [id number] Dictation # [id number] josué
--- NOTE | 2016-07-08 22:24 | PN ---
DATE: 07/08/2016 REFERRING PHYSICIAN: Dr. Bishop. SUBJECTIVE: He is transferred out of ICU on telemetry, lying in the bed, head at 45 degrees, sleepy, arousable. Night was unremarkable. No nausea, no vomiting, no diarrhea, no leg pain or leg swellin g. Still has weakness. OBJECTIVE: GENERAL: In no acute distress. VITAL SIGNS: Temp is 98, heart rate is 84, respiratory rate is 24, blood pressure is 138/86, pulse o x 96% on nasal cannula. HEENT: Moist mucous membranes. Crowded airway. Mallampati score is 4. NECK: Supple. No JVD. LUNGS: Have a fair airflow with few rhonchi. HEART: S1, S2. ABDOMEN: Soft, nontender. No organomegaly. EXTREMITIES: There is no edema. NEUROLOGIC: Awake, alert, follows simple command. MEDICATIONS: He is on Altace 5 mg daily, aspirin 81 mg daily, 250 mg, also on weight based hep eileen protocol, Lipitor 10 mg daily, metoprolol tartrate 25 mg twice a day, Protonix 40 mg daily, Vaishnavi xa 1 tab q. 12 hours, mg with meals, Tricor 145 mg daily, allopurinol 200 mg daily. LABORATORY DATA: Reviewed. Blood sugar 152. IMPRESSION AND PLAN: Acute stroke requiring thrombolytic therapy, presently on heparin, coronary art tamia disease, history of coronary bypass surgery, severe cardiomyopathy, pulmonary hypertension, parox ysmal atrial fibrillation, sleep apnea syndrome, has internal carotid and M2 branch collapse. Case d iscussed with Dr. Bishop. I spoke to patient's . Also has a component of sleep apnea syndrome. We will continue to encourage BiPAP use, keep head at 45 degrees, gastric prophylaxis, anticoagulati on. Neurology followup physical therapy. Thank you and will follow with you. Helder David MD cc: [id number] TT: 07/08/2016 22:24:15 Confirmation # [id number] Dictation # [id number]
[2016-07-08] MEDS: RANOLAZINE PO SCH (22:25)
--- NOTE | 2016-07-09 01:36 | CP.PCM.PN ---
Subjective - Date & Time of Evaluation Date of Evaluation: 07/09/16 Time of Evaluation: 01:25 - Subjective Subjective: S:Nurse calls to discontinue esmolol drip order. Patient was seen. Has no complaints. Medical record was reviewed. BP 138/82. O: Last Vital Signs 3 Temp 99.9 F H 07/08/16 16:00 Pulse 80 07/09/16 01:22 Resp 18 07/08/16 16:00 BP 131/82 07/08/16 16:00 Pulse Ox 100 07/08/16 16:00 Asleep, not in distress, is on BiPAP. LUNGS:Normal breathing pattern. A: CVA. P:Discontinue esmolol. Objective - Vital Signs/Intake and Output Vital Signs (last 24 hours): Temp Pulse Resp BP Pulse Ox 99.9 F H 80 18 131/82 100 07/08/16 16:00 07/09/16 01:22 07/08/16 16:00 07/08/16 16:00 07/08/16 16:00 Intake and Output: 07/08/16 07/09/16 18:59 06:59 Intake Total 120 Output Total 250 Balance -130 - Medications Medications: Current Medications Allopurinol (Zyloprim) 200 mg PO DAILY [facility] Last Admin: 07/07/16 10:29 Dose: 200 mg Aspirin (Aspirin Chewable) 81 mg PO DAILY [facility] Last Admin: 07/07/16 13:19 Dose: 81 mg Atorvastatin Calcium (Lipitor) 10 mg PO HS [facility] Last Admin: 07/08/16 22:17 Dose: 10 mg Fenofibrate (Tricor) 145 mg PO DAILY [facility] Last Admin: 07/07/16 10:30 Dose: 145 mg Heparin Sodium/Sodium Chloride (Heparin 62799 Units/250ml 1/2 Normal Saline) 25 ,000 units in 250 mls @ 12.81 mls/hr IV .[id number] PRN; Protocol; 18 UNITS/KG/HR PRN Reason: ADJUST RATE PER PROTOCOL Last Admin: 07/07/16 22:44 Dose: 13.03 units/kg/hr, 9.273 mls/hr Metoprolol Tartrate (Lopressor) 25 mg PO BID [facility] Last Admin: 07/07/16 17:05 Dose: 25 mg Non-Formulary Medication (Ranolazine [Ranexa]) 1 tab PO Q12H [facility] Last Admin: 07/08/16 22:25 Dose: 1 tab Pantoprazole Sodium (Protonix Inj) 40 mg IVP DAILY [facility] Last Admin: 07/07/16 10:29 Dose: 40 mg Ramipril (Altace) 5 mg PO DAILY [facility] Last Admin: 07/07/16 17:05 Dose: 5 mg Sevelamer HCl (Renagel) 800 mg PO WM [facility] Last Admin: 07/07/16 16:40 Dose: Not Given - Labs Labs: 07/07/16 06:55 07/07/16 06:55 PT 13.7 Seconds (9.9-11.8) H 07/07/16 00:41 INR 1.27 (0.93-1.08) H 07/07/16 00:41 APTT 90.6 Seconds (23.7-30.8) H* 07/07/16 21:42
--- NOTE | 2016-07-09 04:11 | CP.PCM.PN ---
Subjective - Date & Time of Evaluation Date of Evaluation: 07/09/16 Time of Evaluation: 04:07 - Subjective Subjective: DRAFT: S: Nurse calls and tells that air sampling and monitoring called and told that rhythm was changing from Atrial fibrillation to Flutter. Patient is asymptomatic. I saw patient at bed side. Patient is asleep.. Medical record was reviwed. O: 131/70,88, 20, afebrile 100% BiPAP 10/6 on 30% LUNGS:Normal breathing pattern. A: atrial fibrillation. P:EKG was ordered which shows no changes in comparision with July 05 EKG which shows atrial fibrillation, RBBB, old Inferior infarct. Will monitor patient. Objective - Vital Signs/Intake and Output Vital Signs (last 24 hours): Temp Pulse Resp BP Pulse Ox 99.9 F H 80 18 131/82 100 07/08/16 16:00 07/09/16 01:22 07/08/16 16:00 07/08/16 16:00 07/08/16 16:00 Intake and Output: 07/08/16 07/09/16 18:59 06:59 Intake Total 120 Output Total 250 Balance -130 - Medications Medications: Current Medications Allopurinol (Zyloprim) 200 mg PO DAILY [facility] Last Admin: 07/07/16 10:29 Dose: 200 mg Aspirin (Aspirin Chewable) 81 mg PO DAILY [facility] Last Admin: 07/07/16 13:19 Dose: 81 mg Atorvastatin Calcium (Lipitor) 10 mg PO HS [facility] Last Admin: 07/08/16 22:17 Dose: 10 mg Fenofibrate (Tricor) 145 mg PO DAILY [facility] Last Admin: 07/07/16 10:30 Dose: 145 mg Heparin Sodium/Sodium Chloride (Heparin 98109 Units/250ml 1/2 Normal Saline) 25 ,000 units in 250 mls @ 12.81 mls/hr IV .[id number] PRN; Protocol; 18 UNITS/KG/HR PRN Reason: ADJUST RATE PER PROTOCOL Last Admin: 07/07/16 22:44 Dose: 13.03 units/kg/hr, 9.273 mls/hr Metoprolol Tartrate (Lopressor) 25 mg PO BID [facility] Last Admin: 07/07/16 17:05 Dose: 25 mg Non-Formulary Medication (Ranolazine [Ranexa]) 1 tab PO Q12H [facility] Last Admin: 07/08/16 22:25 Dose: 1 tab Pantoprazole Sodium (Protonix Inj) 40 mg IVP DAILY [facility] Last Admin: 07/07/16 10:29 Dose: 40 mg Ramipril (Altace) 5 mg PO DAILY [facility] Last Admin: 07/07/16 17:05 Dose: 5 mg Sevelamer HCl (Renagel) 800 mg PO WM [facility] Last Admin: 07/07/16 16:40 Dose: Not Given - Labs Labs: 07/07/16 06:55 07/07/16 06:55 PT 13.7 Seconds (9.9-11.8) H 07/07/16 00:41 INR 1.27 (0.93-1.08) H 07/07/16 00:41 APTT 90.6 Seconds (23.7-30.8) H* 07/07/16 21:42
[2016-07-09 07:14] LABS: HEMATOCRIT 34.4 % (42.0-52.0); MEAN CORPUSCULAR HEMOGLOBIN 28.8 pg (25.0-35.0); MEAN CORPUSCULAR HGB CONC 33.4 g/dl (31.0-37.0); MEAN PLATELET VOLUME 10.7 fl (7.0-11.0); RED CELL DISTRIBUTION WIDTH 14.5 % (11.5-14.5); WHITE BLOOD COUNT 11.9 10^3/ul (4.5-11.0)
[2016-07-09 07:40] LABS: ALB/GLOB RATIO 0.9 (1.1-1.8); BILIRUBIN,TOTAL 2.1 mg/dL (0.2-1.3); CALCIUM 8.8 mg/dL (8.4-10.5); MAGNESIUM 2.1 mg/dL (1.7-2.2); PHOSPHOROUS 2.6 mg/dL (2.5-4.5); POTASSIUM 3.8 mmol/L (3.6-5.0); TOTAL PROTEIN 6.9 g/dL (5.8-8.3)
[2016-07-09 08:42] LABS: INR 1.16 (0.93-1.08); PARTIAL THROMBOPLASTIN TIME 48.7 Seconds (23.7-30.8)
--- NOTE | 2016-07-09 08:56 | CP.PCM.PN ---
Subjective - Date & Time of Evaluation Date of Evaluation: 07/09/16 Time of Evaluation: 08:51 - Subjective Subjective: Vasc Sx: Dr Moreira Pt S&E. Pt has been seen by surgical team daily, but due to down-time notes are not in [facility]. Pt had repeat MRA of neck on 07/07, which shows no thrombus in the carotids with remaining thrombus in the MCA accounting for symptoms. Currently pt in ICU and being seen by cardiology. Undergoing medical mgmt for afib. Responds to questioning with head gestures. Denies pain at this time. Objective - Vital Signs/Intake and Output Vital Signs (last 24 hours): Temp Pulse Resp BP Pulse Ox 99.9 F H 80 18 131/82 100 07/08/16 16:00 07/09/16 01:22 07/08/16 16:00 07/08/16 16:00 07/08/16 16:00 Intake and Output: 07/09/16 07/09/16 06:59 18:59 Intake Total 120 Output Total 350 Balance -230 - Medications Medications: Current Medications Allopurinol (Zyloprim) 200 mg PO DAILY [facility] Last Admin: 07/07/16 10:29 Dose: 200 mg Aspirin (Aspirin Chewable) 81 mg PO DAILY [facility] Last Admin: 07/07/16 13:19 Dose: 81 mg Atorvastatin Calcium (Lipitor) 10 mg PO HS [facility] Last Admin: 07/08/16 22:17 Dose: 10 mg Fenofibrate (Tricor) 145 mg PO DAILY [facility] Last Admin: 07/07/16 10:30 Dose: 145 mg Heparin Sodium/Sodium Chloride (Heparin 47174 Units/250ml 1/2 Normal Saline) 25 ,000 units in 250 mls @ 12.81 mls/hr IV .[id number] PRN; Protocol; 18 UNITS/KG/HR PRN Reason: ADJUST RATE PER PROTOCOL Last Admin: 07/07/16 22:44 Dose: 13.03 units/kg/hr, 9.273 mls/hr Metoprolol Tartrate (Lopressor) 25 mg PO BID [facility] Last Admin: 07/07/16 17:05 Dose: 25 mg Non-Formulary Medication (Ranolazine [Ranexa]) 1 tab PO Q12H [facility] Last Admin: 07/08/16 22:25 Dose: 1 tab Pantoprazole Sodium (Protonix Inj) 40 mg IVP DAILY [facility] Last Admin: 07/07/16 10:29 Dose: 40 mg Ramipril (Altace) 5 mg PO DAILY [facility] Last Admin: 07/07/16 17:05 Dose: 5 mg Sevelamer HCl (Renagel) 800 mg PO WM [facility] Last Admin: 07/07/16 16:40 Dose: Not Given - Labs Labs: 07/09/16 06:45 07/09/16 06:45 PT 12.5 Seconds (9.9-11.8) H 07/08/16 20:05 INR 1.16 (0.93-1.08) H 07/08/16 20:05 APTT 48.7 Seconds (23.7-30.8) H 07/08/16 20:05 - Constitutional Appears: Non-toxic - Respiratory Exam Respiratory Exam: absent: Accessory Muscle Use, Respiratory Distress - Cardiovascular Exam Cardiovascular Exam: Irregular Rhythm - GI/Abdominal Exam GI & Abdominal Exam: Soft. absent: Distended - Neurological Exam Neurological Exam: Alert, Awake - Skin Skin Exam: Normal Color, Warm Assessment and Plan - Assessment and Plan (Free Text) Assessment: 65M s/p right MCA stroke Plan: Stenosis on US only 20-30% No identifiable thrombus on MRA of neck Emboli likely 2/2 to afib and not carotid stenosis cont med mgmt for afib and MCA thrombus No indication for surgical intervention or revascularization of carotids Vasc surgery will sign off d/w Dr Harish Mello, DO, PGY2
[2016-07-09] MEDS: RANOLAZINE PO SCH ×2 (09:05→21:29)
--- NOTE | 2016-07-09 10:12 | PN ---
DATE: 07/09/2016 SUBJECTIVE: The patient is comfortable, lying in bed. PHYSICAL EXAMINATION: VITAL SIGNS: Blood pressure 130/80, heart rate is in the 80s. NECK: Negative JVD. LUNGS: Decreased breath sounds bilaterally. HEART: Reveals S1, S2. EXTREMITIES: Without edema. LABORATORY DATA: Hemoglobin is 11.5. Chemistries: The BUN and creatinine is 26 and 1.7. IMPRESSION: 1. Cerebrovascular accident. 2. Atrial fibrillation. 3. Dilated cardiomyopathy. 4. Renal insufficiency, which is better. 5. History of coronary artery bypass surgery. 6. Hypercholesterolemia. PLAN: Given these findings, the patient remains on IV heparin. His echocardiogram reemphasizes his severe dilated cardiomyopathy as well as his severe pulmonary hyp ertension. The patient will need long-term anticoagulation. Chriss Valverde MD cc: [id number] TT: 07/09/2016 10:11:38 Confirmation # [id number] Dictation # [id number] claudy
[2016-07-09 11:13] LABS: CALCIUM 9.1 mg/dL (8.4-10.5); POTASSIUM 3.9 mmol/L (3.6-5.0)
[2016-07-09] MEDS: Heparin25000 units/250ml 1/2NS 25,000 UNITS/250 ML BAG IV PRN ×2 (14:14→16:37)
[2016-07-09 16:57] LABS: HEMATOCRIT 37.8 % (42.0-52.0); MEAN CELL VOLUME 86.5 fL (80.0-105.0); MEAN CORPUSCULAR HEMOGLOBIN 29.7 pg (25.0-35.0); MEAN CORPUSCULAR HGB CONC 34.4 g/dl (31.0-37.0); MEAN PLATELET VOLUME 10.5 fl (7.0-11.0); RED CELL DISTRIBUTION WIDTH 14.5 % (11.5-14.5); WHITE BLOOD COUNT 11.8 10^3/ul (4.5-11.0)
--- NOTE | 2016-07-09 19:01 | CP.PCM.PN ---
Subjective - Date & Time of Evaluation Date of Evaluation: 07/07/16 Time of Evaluation: 15:00 - Subjective Subjective: Patient: RAS MONTES Unit: [id number] : 1950 Loc: CCU Room/Bed: 129-05 Age/Sex: 65 / M ADM Status: ADM IN ADM Date: DIS Date: Progress note: DATE: 07/09/2016 CHIEF COMPLAINT: F/U for Left side weakness. SUBJECTIVE: Currently, still has left hemiplegia and is slightly sleepy due to right MCA territory infarct. He is out of bed to chair today. Will need usp anticoagulation. PAST MEDICAL HISTORY: Coronary artery disease, hyperlipidemia, diverticulitis, gout, chronic kidney disease. SURGICAL HISTORY: Appendectomy, quadruple bypass. SOCIAL HISTORY: Former smoker. No alcohol or illicit drug use. ALLERGIES: No known drug allergies. MEDICATIONS: At home were aspirin, Coreg, Renvela, Ranexa, allopurinol, vitamin D, Lipitor, Avapro, fenofibric acid, nitroglycerin, Plavix. REVIEW OF SYSTEMS: A 14-point review of systems is negative except as in the HPI. PHYSICAL EXAMINATION: VITAL SIGNS: Reviewed. GENERAL: The patient is sitting up in bed in no acute distress, extubated. HEENT: Atraumatic, normocephalic. PERRLA. Extraocular muscles intact. NECK: Supple, no JVD, no adenopathy noted. LUNGS: Clear to auscultation. No adventitious sounds. HEART: S1, S2, normal rate and rhythm. No murmurs, rubs, or gallops. ABDOMEN: Soft, nontender, nondistended. Bowel sounds present. EXTREMITIES: No clubbing, no cyanosis. Has trace pedal edema. NEUROLOGIC: The patient is drowsy, in no acute distress. Speech is hypophonic , slight dysarthria. No aphasia noted. Cranial nerves II-XII are intact with mild left facial droop. MOTOR: Has dense left hemiparaplegia, moves right upper and lower extremities. Right toe is downgoing, left toe is upgoing. SENSORY EXAM: Withdraws to localized noxious stimulus. Light touch is intact. Proprioception is intact. DTRs 2+ throughout. COORDINATION: [id number] intact on the right. Difficult on the left due to residual left side weakness. LABORATORIES: Reviewed. ASSESSMENT AND PLAN: This is a nice 65-year-old [place] man with past medical history of gout, dyslipidemia, hypertriglyceridemia, coronary artery disease, chronic kidney disease, diverticulitis who presented with left-sided hemiparesis/hemiplegia, found to have a dense M2 segment right MCA territory infarct, which is possible the patient's current present medical status. His M2 segment is somewhat more distal than usual for intra-arterial intervention, he is status post TPA past 24hrs ago. He had a round of paroxysmal atrial fibrillation in the ER. He has acute right carotid thrombus , can not get CTA neck due to his creatinine elevation for CKD. Patient was placed on Heparin to disolve the clot. His cardiac output is poor with low EF. MRA neck showed no thrombus. Likely stroke is secondary to diffuse atherosclerotic disease superimposed on underlying possible paroxysmal atrial fibrillation and poor cardaic output creating clots. At this time, recommend: 1. Will need coumadin and ASa 81 mg po in future given history of poor cardiac function, paroxsymal afib with positive CVA. 2. Will need a speech and swallow, PT, OT and acute rehabilitation. 3. Keep his blood pressure between 120 and 130 mmHg. 4. Continue with current mx. 5. OOB. Ferny Michael MD Objective - Vital Signs/Intake and Output Vital Signs (last 24 hours): Temp Pulse Resp BP Pulse Ox 99.2 F 93 H 20 130/80 99 07/09/16 06:00 07/09/16 10:49 07/09/16 06:00 07/09/16 09:01 07/09/16 06:00 Intake and Output: 07/09/16 07/09/16 06:59 18:59 Intake Total 370 250 Output Total 350 Balance 20 250 - Medications Medications: Current Medications Allopurinol (Zyloprim) 200 mg PO DAILY [facility] Last Admin: 07/09/16 09:02 Dose: 200 mg Aspirin (Aspirin Chewable) 81 mg PO DAILY [facility] Last Admin: 07/09/16 09:01 Dose: 81 mg Atorvastatin Calcium (Lipitor) 10 mg PO [facility] Last Admin: 07/08/16 22:17 Dose: 10 mg Fenofibrate (Tricor) 145 mg PO DAILY [facility] Last Admin: 07/09/16 09:02 Dose: 145 mg Heparin Sodium/Sodium Chloride (Heparin 48862 Units/250ml 1/2 Normal Saline) 25 ,000 units in 250 mls @ 12.81 mls/hr IV .[id number] PRN; Protocol; 18 UNITS/KG/HR PRN Reason: ADJUST RATE PER PROTOCOL Last Admin: 07/09/16 16:37 Dose: 8.71 units/kg/hr, 6.2 mls/hr Metoprolol Tartrate (Lopressor) 25 mg PO BID [facility] Last Admin: 07/09/16 17:02 Dose: 25 mg Non-Formulary Medication (Ranolazine [Ranexa]) 1 tab PO Q12H [facility] Last Admin: 07/09/16 09:05 Dose: 1 tab Pantoprazole Sodium (Protonix Inj) 40 mg IVP DAILY [facility] Last Admin: 07/09/16 09:01 Dose: 40 mg Ramipril (Altace) 5 mg PO DAILY [facility] Last Admin: 07/09/16 09:01 Dose: 5 mg Sevelamer HCl (Renagel) 800 mg PO WM [facility] Last Admin: 07/09/16 17:02 Dose: 800 mg - Labs Labs: 07/09/16 06:45 07/09/16 06:45 PT 12.5 Seconds (9.9-11.8) H 07/08/16 20:05 INR 1.16 (0.93-1.08) H 07/08/16 20:05 APTT 36.9 Seconds (23.7-30.8) H 07/09/16 15:50
--- NOTE | 2016-07-09 22:40 | CARD ---
APPROVED REPORT EKG Measurement Heart [id number] <Conclusion> Atrial fibrillation Right bundle branch block Inferior infarct, age undetermined Abnormal ECG
--- NOTE | 2016-07-10 03:15 | PN ---
DATE: 07/09/2016 The patient seen and examined on the bedside. Sleepy, arousable, moving all 4 extremities. No fever, no chills. No nausea, vomiting, diarrhea. No hematuria , hematochezia. PHYSICAL EXAMINATION: VITAL SIGNS: Temperature 98.2, pulse 80 , blood pressure 120/80 , respiratory 20. HEENT: Head normocephalic, atraumatic. Eyes PERRLA. Extraocular muscles intact. Conjunctivae clear. Eyelids unremarkable. Nose patent. Mucous membrane moist. NECK: Supple. No carotid bruit, JVD or thyromegaly. CHEST: Bilaterally symmetrical. HEART: Sounds positive. LUNGS: Clear to auscultation. ABDOMEN: Soft. Bowel sounds present. No organomegaly. EXTREMITIES: No edema, no cyanosis. NEUROLOGIC: The patient is sleepy, arousable. MEDICATIONS: aspirin, heparin drip, Lipitor, Lopressor, Protonix, Ranexa, Renagel, TriCor, allopurinol. LABORATORY DATA: White blood cell is 11.9, hemoglobin 11.5, hematocrit 34.4, platelets noted . Sodium 135, potassium 3.8, BUN noted , creatinine 1.7, glucose 103. ASSESSMENT AND PLAN: The patient is a 65-year-old male with leukocytosis, anemia, renal insufficiency improving very slowly, hyperglycemia, hyperbilirubinemia, proteinuria. He was seen by the bioinformatics engineer, Dr. Chriss Valverde. The patient has atrial fibrillation . Dr. Bucio was called for that by the nursing staff. History of cerebrovascular accident, dilated cardiomyopathy , renal insufficiency which is better, history of coronary artery disease, hypercholesterolemia. According to bioinformatics engineer, patient is to remain on intravenous heparin. Echocardiography shows severe dilated cardiomyopathy as well as severe pulmonary hypertension. The patient may need long-term anticoagulation. The patient was seen by Dr. Bucio for discontinue drip. is on the bedside. Length of time discussion done. All questions answered. The patient has acute stroke requiring thrombolytic therapy, history of coronary bypass. Sleep apnea precautions. Discussion done with Dr. David also. Sleep apnea precautions, patient is on bilevel positive airway pressure. Gastric prophylaxis. Neurological followup. We will follow up. Louisa Dario MD cc: [id number] TT: 07/09/2016 18:23:04 Confirmation # [id number] Dictation # [id number] MTDD
[2016-07-10] MEDS: RANOLAZINE PO SCH ×2 (09:37→22:32)
[2016-07-10] MEDS: Heparin25000 units/250ml 1/2NS 25,000 UNITS/250 ML BAG IV PRN (11:15)
--- NOTE | 2016-07-10 21:12 | PN ---
DATE: 07/10/2016 SUBJECTIVE: The patient was seen and examined on the bedside. was standing on the bedside also . The patient was having glasses and trying to do something on his laptop. Feels better. Not big c hange in the status. No nausea, vomiting, or diarrhea. No hematuria or hematochezia. No fever, no chills. PHYSICAL EXAMINATION: VITAL SIGNS: Temperature 98.6, pulse 80, blood pressure 130/72, respiratory rate 20. HEAD: Normocephalic, atraumatic. EYES: PERRLA. Extraocular movements intact. Conjunctivae are clear. Nose patent. Mucous membranes moist. NECK: Supple. No carotid bruit, JVD or thyromegaly. CHEST: Bilaterally symmetrical. HEART: S1, S2 positive. LUNGS: Clear to auscultation. ABDOMEN: Soft. Bowel sounds present. No organomegaly. EXTREMITIES: No edema, no cyanosis. NEUROLOGIC: The patient is awake, alert, but speech is very slow. MEDICATIONS: Altace, aspirin, heparin, Lipitor, Lopressor, Protonix, Ranexa, Renagel. LABORATORY DATA: White blood cells 11.9, hemoglobin 11.5, hematocrit 34.4, platelets 159. Sodium 13 5, potassium 3.8, BUN 26, creatinine 1.7, bilirubin 2.1. ASSESSMENT AND PLAN: The patient is a 65-year-old male with leukocytosis, anemia, renal insufficienc y, abnormal liver function test, hyperglycemia, proteinuria, is seen by Dr. Ferny Michael, left-sided weakness, right MCA territory infarct. According to neurologist, will need long-term coagulation. H istory of gouty arthritis, dyslipidemia, hyperglyceridemia, coronary artery disease, history of diver ticulitis, paroxysmal atrial fibrillation, had acute right carotid thrombus. Cannot get a CTA of nec k due to his creatinine elevation for chronic kidney disease. The patient is getting heparin to disso lve the clot. Ejection fraction is low. Looks like stroke due to diffuse atherosclerotic disease fox perimposed on underlying possibly paroxysmal atrial fibrillation and poor cardiac output creating justus ts. The patient is getting aspirin and heparin. Needs Coumadin. Needs speech and swallow evaluation , PT, out of bed and acute rehab. Continue current medication. We will follow up. Length of time d iscussion done with the as she was on the bedside. Louisa Bishop MD cc: [id number] TT: 07/10/2016 21:12:33 Confirmation # [id number] Dictation # [id number]
--- NOTE | 2016-07-10 21:59 | PN ---
DATE: 07/10/2016 REFERRING PHYSICIAN: Dr. Bishop. SUBJECTIVE: The patient is out of bed to chair, is feeding him lunch. Night was unremarkable. Tolerated BiPAP well. Not much cough, no sputum production, no nausea, no vomiting, diarrhea, leg s welling, left-sided weakness. OBJECTIVE: GENERAL: No acute distress. VITAL SIGNS: Temperature is 98, heart rate is 73, respiratory rate is 20, blood pressure 130/72, pul se ox 99% on nasal cannula. HEENT: Small oral cavity. Crowded airway. NECK: Supple. No JVD. LUNGS: Has a fair airflow with rhonchi. HEART: S1, S2. ABDOMEN: Soft, nontender. No organomegaly. EXTREMITIES: There is no edema. NEUROLOGIC: Awake, alert, follows simple commands. MEDICATIONS: He is on Altace 5 mg daily, aspirin 81 mg daily, heparin weight based protocol, Lipitor 10 mg daily, metoprolol tartrate 25 mg twice a day. Protonix 40 mg daily, Ranexa one tab q. 12 hour s, Renagel 800 mg with the meals, Tricor 145 mg daily, allopurinol 200 mg daily. LABORATORY DATA: Shows PTT 69. IMPRESSION AND PLAN: Acute stroke requiring thrombolytic therapy on heparin, coronary artery disease , history of coronary bypass surgery, history of cardiomyopathy, pulmonary hypertension, paroxysmal a trial fibrillation, sleep apnea syndrome, has an internal carotid M2 branch thrombus. Will continue anticoagulation when cleared by neurology, will start Coumadin. Encourage CPAP use. Keep head of be d at 45 degrees. Gastric prophylaxis. Start physical therapy. Thank you and will follow with you. Helder David MD cc: [id number] TT: 07/10/2016 21:58:18 Confirmation # [id number] Dictation # [id number]
[2016-07-11] MEDS: Heparin25000 units/250ml 1/2NS 25,000 UNITS/250 ML BAG IV PRN (02:01)
[2016-07-11] MEDS: RANOLAZINE PO SCH (10:30)
--- NOTE | 2016-07-11 19:10 | CP.PCM.CON ---
History of Present Illness - History of Present Illness History of Present Illness: Infectious Disease Consultation: July 11, 2016 65 yo male with extensive past medical history with sudden presentation of left sided weakness. He developed left arm shaking, difficulty breathing, gasping for air, and garbled speech. New onset borderling temperatures today of 100.2 F. His temperature reached as high as 100.3 F. PMHx: CAD, hyperlipidemia, diverticulitits, gout, chronic kidney disease PSHx: Appendectomy, CABG x 4 vessels 16 years ago. Allergies: NKDA Social Hx: Former heavy smoker, but still occasional tobacco use, Social EtOH, no illicit drug use. Active Medications Acetaminophen (Tylenol 325mg Tab) 650 mg PO Q6H PRN PRN Reason: Fever >100.4 F Last Admin: 07/11/16 18:02 Dose: 650 mg Allopurinol (Zyloprim) 200 mg PO DAILY [facility] Last Admin: 07/11/16 11:00 Dose: 200 mg Aspirin (Aspirin Chewable) 81 mg PO DAILY [facility] Last Admin: 07/11/16 10:00 Dose: 81 mg Atorvastatin Calcium (Lipitor) 10 mg PO HS [facility] Last Admin: 07/10/16 22:32 Dose: 10 mg Fenofibrate (Tricor) 145 mg PO DAILY [facility] Last Admin: 07/11/16 12:12 Dose: 145 mg Heparin Sodium/Sodium Chloride (Heparin 77322 Units/250ml 1/2 Normal Saline) 25 ,000 units in 250 mls @ 12.81 mls/hr IV .[id number] PRN; Protocol; 18 UNITS/KG/HR PRN Reason: ADJUST RATE PER PROTOCOL Last Admin: 07/11/16 02:01 Dose: 11.52 units/kg/hr, 8.199 mls/hr Metoprolol Tartrate (Lopressor) 25 mg PO BID [facility] Last Admin: 07/11/16 17:56 Dose: 25 mg Non-Formulary Medication (Ranolazine [Ranexa]) 1 tab PO Q12H [facility] Last Admin: 07/11/16 10:30 Dose: 1 tab Pantoprazole Sodium (Protonix Inj) 40 mg IVP DAILY [facility] Last Admin: 07/11/16 11:00 Dose: 40 mg Ramipril (Altace) 5 mg PO DAILY [facility] Last Admin: 07/11/16 11:00 Dose: 5 mg Sevelamer HCl (Renagel) 800 mg PO WM [facility] Last Admin: 07/11/16 17:55 Dose: 800 mg Family Hx: none given ROS: New onset weakness. No fevers, chills, nausea, vomiting, diarrhea, headaches, dizziness, chest pain, abdominal pain, melena, hematuria, hematemesis, hematochezia, depression, anxiety. Past Patient History - Infectious Disease Hx of Infectious Diseases: None - Past Social History Smoking Status: Current Some Days Smoker - CARDIAC Hx Cardiac Disorders: Yes - RENAL Hx Renal Failure: Yes - HEMATOLOGICAL/ONCOLOGICAL Other/Comment: "high uric acid" - INTEGUMENTARY Other/Comment: multiple skin discolorations ble, dry scabs to lle - MUSCULOSKELETAL/RHEUMATOLOGICAL Hx Falls: No - GASTROINTESTINAL Hx Diverticulitis: Yes - PSYCHIATRIC Hx Substance Use: No - SURGICAL HISTORY Hx Appendectomy: Yes Other/Comment: Quadruple bypass - ANESTHESIA Hx Anesthesia: Yes Hx Anesthesia Reactions: No Hx Malignant Hyperthermia: No Meds Allergies/Adverse Reactions: Allergies Allergy/AdvReac Type Severity Reaction Status Date / Time No Known Allergies Allergy Verified 07/05/16 19:31 - Medications Medications: Current Medications Acetaminophen (Tylenol 325mg Tab) 650 mg PO Q6H PRN PRN Reason: Fever >100.4 F Last Admin: 07/11/16 18:02 Dose: 650 mg Allopurinol (Zyloprim) 200 mg PO DAILY [facility] Last Admin: 07/11/16 11:00 Dose: 200 mg Aspirin (Aspirin Chewable) 81 mg PO DAILY [facility] Last Admin: 07/11/16 10:00 Dose: 81 mg Atorvastatin Calcium (Lipitor) 10 mg PO HS [facility] Last Admin: 07/10/16 22:32 Dose: 10 mg Fenofibrate (Tricor) 145 mg PO DAILY [facility] Last Admin: 07/11/16 12:12 Dose: 145 mg Heparin Sodium/Sodium Chloride (Heparin 43259 Units/250ml 1/2 Normal Saline) 25 ,000 units in 250 mls @ 12.81 mls/hr IV .[id number] PRN; Protocol; 18 UNITS/KG/HR PRN Reason: ADJUST RATE PER PROTOCOL Last Admin: 07/11/16 02:01 Dose: 11.52 units/kg/hr, 8.199 mls/hr Metoprolol Tartrate (Lopressor) 25 mg PO BID [facility] Last Admin: 07/11/16 17:56 Dose: 25 mg Non-Formulary Medication (Ranolazine [Ranexa]) 1 tab PO Q12H [facility] Last Admin: 07/11/16 10:30 Dose: 1 tab Pantoprazole Sodium (Protonix Inj) 40 mg IVP DAILY [facility] Last Admin: 07/11/16 11:00 Dose: 40 mg Ramipril (Altace) 5 mg PO DAILY [facility] Last Admin: 07/11/16 11:00 Dose: 5 mg Sevelamer HCl (Renagel) 800 mg PO WM [facility] Last Admin: 07/11/16 17:55 Dose: 800 mg Physical Exam - Constitutional Appears: Non-toxic, No Acute Distress, Chronically Ill - Head Exam Head Exam: ATRAUMATIC, NORMOCEPHALIC - Eye Exam Eye Exam: EOMI, PERRL Pupil Exam: NORMAL ACCOMODATION, PERRL - ENT Exam ENT Exam: Mucous Membranes Moist, Normal External Ear Exam, TM's Normal Bilaterally - Neck Exam Neck exam: Positive for: Full Rom, Normal Inspection - Respiratory Exam Respiratory Exam: Clear to Auscultation Bilateral, NORMAL BREATHING PATTERN. absent: Rales, Rhonchi, Wheezes - Cardiovascular Exam Cardiovascular Exam: REGULAR RHYTHM, RRR, +S1, +S2 - GI/Abdominal Exam GI & Abdominal Exam: Normal Bowel Sounds, Soft. absent: Distended, Tenderness - Extremities Exam Extremities exam: Positive for: full ROM, normal inspection - Neurological Exam Neurological exam: Alert, CN II-XII Intact, Oriented x3 Additional comments: left sided residual weakness and left sided facial droop. Left hemiparaplegia. - Psychiatric Exam Psychiatric exam: Normal Affect, Normal Mood - Skin Skin Exam: Intact, Normal Color Results - Vital Signs Recent Vital Signs: Last Vital Signs Temp 100.2 F H 07/11/16 18:02 Pulse 91 H 07/11/16 17:56 Resp 19 07/11/16 17:41 BP 133/82 07/11/16 17:56 Pulse Ox 100 07/11/16 17:41 - Labs Result Diagrams: 07/09/16 06:45 07/09/16 06:45 Labs: Laboratory Results - last 24 hr 07/10/16 07/11/16 18:05 02:15 APTT 68.8 H 59.5 H Assessment & Plan - Assessment and Plan (Free Text) Assessment: 65 yo [place]og[place] male with sudden onset of left sided hemiparesis/hemiplegia with findings of a dense M2 segment right MCA territory infarct. He received TPA. He had episode of paroxysmal atrial fibrillation when in the ER. 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 The patient has been having several episodes of borderline fevers up to 100.3 F. Patient has been in the hospital since 07/05/2016. No additional complaints. Urinalysis not showing signs of UTI. Would obtain Chest X-ray. Cannot rule out the increased temperature can be secondary to the the thrombus as well. Will start Rocephin for now. Obtain blood cultures. Supportive care. Thank you for allowing me to participate in the care of the patient, we will follow with you.
--- NOTE | 2016-07-11 23:30 | PN ---
DATE: 07/11/2016 PULMONARY PROGRESS NOTE REFERRING PHYSICIAN: Dr. Bishop. SUBJECTIVE: The patient is sitting up in a reclining chair watching TV, sleepy and arousable, tolera terrance BiPAP well, mild cough. No sputum production. No nausea, vomiting, diarrhea. No leg pain or le g swelling. OBJECTIVE: GENERAL: No acute distress. VITAL SIGNS: T-max 100.2, heart rate is 90, respiratory rate is 20, blood pressure 133/82, pulse ox 100% on room air. HEENT: Moist mucous membrane. Crowded airway. Mallampati score is 4. NECK: Supple. No JVD. LUNGS: Has scattered rhonchi. HEART: S1 and S2. ABDOMEN: Soft, nontender. No organomegaly. EXTREMITIES: There is no edema. NEUROLOGIC: Awake, alert, follows simple commands. MEDICATIONS: He is on Altace 5 mg daily, aspirin 81 mg daily, heparin weight based protocol, Lipitor 10 mg daily, metoprolol tartrate is 25 mg twice a day, Protonix 40 mg daily, Ranexa 1 tablet q. 12 h ours, Renagel 800 mg with meals, Rocephin 1 gram daily, Tricor 145 mg daily, Tylenol p.r.n., allopuri nol 200 mg daily. LABORATORY DATA: Shows PTT is 60. Stool for C. diff has been negative. IMPRESSION AND PLAN: Acute stroke requiring thrombolytic therapy or heparin, coronary artery disease , history of coronary artery bypass surgery, history of cardiomyopathy, pulmonary hypertension, parox ysmal atrial fibrillation, sleep apnea syndrome, internal carotid and M2 branch thrombosis. Continue heparin. Continue bronchodilator. We will send urinalysis and urine culture. Portable chest x-ra y. Aspiration precaution. Encourage BiPAP use. Once cleared by neurology, we will start Coumadin. Thank you and will follow with you. Helder David MD cc: [id number] TT: 07/11/2016 23:29:34 Confirmation # [id number] Dictation # [id number] mn
[2016-07-11 23:58] LABS: CALCIUM 9.1 mg/dL (8.4-10.5); POTASSIUM 3.9 mmol/L (3.6-5.0)
[2016-07-11 23:59] LABS: MAGNESIUM 1.8 mg/dL (1.7-2.2); PHOSPHOROUS 3.3 mg/dL (2.5-4.5)
[2016-07-12] LABS: ALB/GLOB RATIO 1.1 (1.1-1.8); BILIRUBIN,TOTAL 2.1 mg/dL (0.2-1.3); TOTAL PROTEIN 7.4 g/dL (5.8-8.3)
[2016-07-12] MEDS: Pantoprazole 40 mg Susp UD PO SCH (07:30)
[2016-07-12 07:36] LABS: HEMATOCRIT 35.6 % (42.0-52.0); MEAN CELL VOLUME 85.8 fL (80.0-105.0); MEAN CORPUSCULAR HEMOGLOBIN 28.9 pg (25.0-35.0); MEAN CORPUSCULAR HGB CONC 33.7 g/dl (31.0-37.0); MEAN PLATELET VOLUME 10.7 fl (7.0-11.0); RED CELL DISTRIBUTION WIDTH 14.2 % (11.5-14.5); WHITE BLOOD COUNT 13.3 10^3/ul (4.5-11.0)
--- NOTE | 2016-07-12 08:57 | PN ---
DATE: 07/09/2016 REFERRING PHYSICIAN: Dr. Bishop. SUBJECTIVE: He is sitting up in a chair, having lunch, is feeding him, sleepy to arousable. Ni ght was unremarkable. Tolerated BiPAP well. No cough, no sputum production, no nausea, no vomiting, no diarrhea. No leg pain or leg swelling. OBJECTIVE: GENERAL: No acute distress. VITAL SIGNS: Temperature is 99.2, heart rate 75, respiratory rate is 20, blood pressure 130/80, puls e ox 99% on 3 liters nasal cannula. HEENT: Moist mucous membranes. Crowded airway. Mallampati score is 4. NECK: Supple. No JVD. LUNGS: Has scattered rhonchi. Overall, fair airflow. HEART: S1, S2. ABDOMEN: Soft, nontender. No organomegaly. EXTREMITIES: There is no edema. NEUROLOGIC: Sleepy, arousable, follows simple commands. MEDICATIONS: Altace is 5 mg daily, aspirin 81 mg daily, heparin weight based protocol, Lipitor 10 mg daily, metoprolol tartrate 25 mg twice a day, Protonix 40 mg daily, Ranexa 1 tablet twice a day, Rhett agel 800 mg, Tricor is 145 mg daily, allopurinol 200 mg daily. LABORATORY DATA: Shows hemoglobin 11.5, hematocrit 34.4, WBC 11.9, platelet is 159, PTT is 37. Sodi um 135, potassium 3.8, chloride 99, bicarbonate 27, BUN 26, creatinine 1.7, glucose 103, calcium is 8 .8, phosphorus 2.6, magnesium is 2.1, total bilirubin 2.1, AST 46, ALT is 24, ALT 42. Albumin is 3.3 . MICROBIOLOGY: Blood cultures: Nasal or urine culture, there is no growth. IMPRESSION AND PLAN: Acute stroke requiring thrombolytic therapy on heparin, coronary artery disease , coronary artery bypass surgery, severe cardiomyopathy, pulmonary hypertension, paroxysmal atrial fi brillation, sleep apnea syndrome, internal carotid into branch blood clot. Case discussed with neuro logy. Continue bronchodilator. Keep head elevated at 45 degrees. BiPAP while sleeping. Anticoagul ation. May add Coumadin now. Follow up INR in the morning. Thank you and will follow with you. Helder David MD cc: [id number] TT: 07/09/2016 19:20:44 Confirmation # [id number] Dictation # [id number] mn
[2016-07-12] MEDS: Heparin25000 units/250ml 1/2NS 25,000 UNITS/250 ML BAG IV PRN (09:00)
[2016-07-12] MEDS: cefTRIAXone 1 gm 1 GM/100 ML BAG IVPB SCH (10:32)
[2016-07-12] MEDS: RANOLAZINE PO SCH ×2 (10:33→22:40)
--- NOTE | 2016-07-12 10:34 | PN ---
DATE: 07/11/2016 SUBJECTIVE: The patient was seen and examined on 07/11/2016. The patient was lying down on the bed comfortably. No change in the status. Tolerating BiPAP very well. Mild cough. No nausea, vomiting , or diarrhea. No fever, no chills. Is not able to give good review of systems. PHYSICAL EXAMINATION: VITAL SIGNS: Temperature of 100.2, heart rate 90, respiratory rate 20, blood pressure 130/82, pulse oximetry 100% room air. HEENT: Head normocephalic, atraumatic. Eyes: PERRLA. Extraocular muscles intact. Conjunctivae ar e clear. Nose patent. Mucous membranes moist. NECK: Supple. No carotid bruit, JVD or thyromegaly. CHEST: Bilaterally symmetrical. HEART: S1, S2 positive. LUNGS: Have scattered rhonchi. ABDOMEN: Soft, nontender. No organomegaly. EXTREMITIES: No edema, no cyanosis. NEUROLOGIC: The patient is awake, alert. Follows simple commands. MEDICATIONS: Altace, aspirin, Lipitor, metoprolol, Protonix, Ranexa, Renagel, Rocephin, Tricor, Tyle nol, allopurinol. LABORATORY DATA: PTT 60. Stool for C. diff has been negative. ASSESSMENT AND PLAN: The patient a 65-year-old male with multiple medical problems, came with acute stroke requiring thrombolytic therapy on heparin, coronary artery disease, history of coronary artery bypass surgery, cardiomyopathy, pulmonary hypertension, paroxysmal atrial fibrillation, sleep apnea syndrome. Internal carotid and M2 branch thrombosis; that is why he is on heparin also. PLAN: To continue heparin as per neurology. Continue bronchodilators. Due to fever, septic workup ordered. Aspiration precautions. Seen by the improvement engineer. ID consult called with Dr. Herring. Has ep isode of paroxysmal atrial fibrillation when in ER. The patient has episodes of fever of 100.3. Acc ording to ID, cannot rule out the increased temperature; it can be secondary to the thrombus as well. The patient started on Rocephin. GI and DVT prophylaxis. Repeat labs. Will follow up. Louisa Bishop MD cc: [id number] TT: 07/12/2016 10:33:16 Confirmation # [id number] Dictation # [id number] mn
--- NOTE | 2016-07-12 11:11 | CP.PCM.PCO ---
Physician Communication Note - Physician Communication Note Physician Communication Note: ok to start coumdain and needs acute rehab. Cardiology clearance.
--- NOTE | 2016-07-12 11:25 | RAD ---
HISTORY: infiltrate COMPARISON: 07/06/2016 FINDINGS: LUNGS: No active pulmonary disease. PLEURA: No significant pleural effusion identified, no pneumothorax apparent. CARDIOVASCULAR: Mild cardiomegaly. Minimal vascular congestion. OSSEOUS STRUCTURES: Sternal wires VISUALIZED UPPER ABDOMEN: Normal. OTHER FINDINGS: None. IMPRESSION: No active disease.
--- NOTE | 2016-07-12 18:05 | CP.PCM.PN ---
Subjective - Date & Time of Evaluation Date of Evaluation: 07/12/16 Time of Evaluation: 16:00 - Subjective Subjective: Infectious Disease Follow Up: July 12, 2016 65 yo male with extensive past medical history with sudden presentation of left sided weakness. He developed left arm shaking, difficulty breathing, gasping for air, and garbled speech. New onset borderling temperatures today of 100.2 F. His temperature reached as high as 100.3 F. The patient is awake and alert. No complaints. No fevers today. Objective - Vital Signs/Intake and Output Vital Signs (last 24 hours): Temp Pulse Resp BP Pulse Ox 98.7 F 75 20 150/90 100 07/12/16 08:08 07/12/16 10:31 07/12/16 08:08 07/12/16 10:31 07/12/16 08:08 - Medications Medications: Current Medications Acetaminophen (Tylenol 325mg Tab) 650 mg PO Q6H PRN PRN Reason: Fever >100.4 F Last Admin: 07/11/16 18:02 Dose: 650 mg Allopurinol (Zyloprim) 200 mg PO DAILY [facility] Last Admin: 07/12/16 10:32 Dose: 200 mg Aspirin (Aspirin Chewable) 81 mg PO DAILY [facility] Last Admin: 07/12/16 10:31 Dose: 81 mg Atorvastatin Calcium (Lipitor) 10 mg PO HS [facility] Last Admin: 07/11/16 21:07 Dose: 10 mg Fenofibrate (Tricor) 145 mg PO DAILY [facility] Last Admin: 07/12/16 10:32 Dose: 145 mg Heparin Sodium/Sodium Chloride (Heparin 48755 Units/250ml 1/2 Normal Saline) 25 ,000 units in 250 mls @ 12.81 mls/hr IV .[id number] PRN; Protocol; 18 UNITS/KG/HR PRN Reason: ADJUST RATE PER PROTOCOL Last Admin: 07/11/16 02:01 Dose: 11.52 units/kg/hr, 8.199 mls/hr Ceftriaxone Sodium (Rocephin 1 Gram Ivpb) 1 gm in 100 mls @ 100 mls/hr IVPB DAILY [facility] PRN Reason: Protocol Last Admin: 07/12/16 10:32 Dose: 100 mls/hr Metoprolol Tartrate (Lopressor) 25 mg PO BID [facility] Last Admin: 07/12/16 10:32 Dose: 25 mg Non-Formulary Medication (Ranolazine [Ranexa]) 1 tab PO Q12H [facility] Last Admin: 07/12/16 10:33 Dose: 1 tab Pantoprazole Sodium (Protonix Susp) 40 mg PO ACB [facility] Last Admin: 07/12/16 07:30 Dose: 40 mg Ramipril (Altace) 5 mg PO DAILY [facility] Last Admin: 07/12/16 10:30 Dose: 5 mg Sevelamer HCl (Renagel) 800 mg PO WM [facility] Last Admin: 07/12/16 12:00 Dose: 800 mg Warfarin Sodium (Coumadin) 5 mg PO 1800 [facility] PRN Reason: Protocol - Labs Labs: 07/12/16 07:00 07/09/16 06:45 PT 12.5 Seconds (9.9-11.8) H 07/08/16 20:05 INR 1.16 (0.93-1.08) H 07/08/16 20:05 APTT 67.9 Seconds (23.7-30.8) H 07/12/16 07:00 - Constitutional Appears: Non-toxic, No Acute Distress, Chronically Ill - Head Exam Head Exam: ATRAUMATIC, NORMOCEPHALIC - Eye Exam Eye Exam: EOMI, PERRL Pupil Exam: NORMAL ACCOMODATION, PERRL - ENT Exam ENT Exam: Mucous Membranes Moist, Normal External Ear Exam, TM's Normal Bilaterally - Neck Exam Neck Exam: Full ROM, Normal Inspection - Respiratory Exam Respiratory Exam: Clear to Ausculation Bilateral, NORMAL BREATHING PATTERN. absent: Rales, Rhonchi, Wheezes - Cardiovascular Exam Cardiovascular Exam: REGULAR RHYTHM, RRR, +S1, +S2 - GI/Abdominal Exam GI & Abdominal Exam: Soft, Normal Bowel Sounds. absent: Distended, Tenderness - Extremities Exam Extremities Exam: Full ROM, Normal Inspection - Neurological Exam Neurological Exam: Alert, Awake, CN II-XII Intact, Oriented x3 Additional comments: left sided residual weakness and left sided facial droop. Left hemiparaplegia. - Psychiatric Exam Psychiatric exam: Normal Affect, Normal Mood - Skin Skin Exam: Intact, Normal Color Assessment and Plan - Assessment and Plan (Free Text) Assessment: 65 yo [place] male with sudden onset of left sided hemiparesis/hemiplegia with findings of a dense M2 segment right MCA territory infarct. He received TPA. He had episode of paroxysmal atrial fibrillation when in the ER. 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 The patient has been having several episodes of borderline fevers up to 100.3 F. Patient has been in the hospital since 07/05/2016. No additional complaints. Urinalysis not showing signs of UTI. Would obtain Chest X-ray. Cannot rule out the increased temperature can be secondary to the the thrombus as well. Continue on Rocephin for now. Obtain blood cultures. Supportive care. Afebrile today. There is mild leukocytosis of 13.3 today. Thank you for allowing me to participate in the care of the patient, we will follow with you.
--- NOTE | 2016-07-12 23:26 | PN ---
DATE: 07/12/2016 REFERRING PHYSICIAN: Dr. Bishop. SUBJECTIVE: The patient is lying in the bed, head at 45 degrees. is at bedside. hot tamale worker is at bedside. Night was unremarkable, tolerated BiPAP well, sleepy, arousable. No headache, no rh initis, no nausea, vomiting, diarrhea. No leg pain or leg swelling. OBJECTIVE: GENERAL: No acute distress. VITAL SIGNS: Temperature is 98, heart rate is 79, respiratory rate is 20, blood pressure is 130/81, pulse ox 100% on 2-liters nasal cannula. HEENT: Moist mucous membranes. Crowded airway. Mallampati score is 4. NECK: Supple. No JVD. LUNGS: Has a fair airflow with few rhonchi. HEART: S1, S2. ABDOMEN: Soft, nontender. No organomegaly. EXTREMITIES: There is no edema. NEUROLOGIC: Sleepy, arousable, follows simple commands. MEDICATIONS: He is on Altace 5 mg daily, aspirin 81 mg daily, Coumadin 5 mg will be given joselin russell weight-based protocol, Lipitor 10 mg daily, metoprolol tartrate 25 mg twice a day, Protonix 40 mg daily, Ranexa 1 tab q. 12 hours, Renagel 800 mg with meals, Rocephin 1 g IV daily, Tricor 145 mg daily, Tylenol p.r.n. basis, allopurinol 1 mg daily. LABORATORY DATA: Shows hemoglobin 12. , hematocrit 35.6, WBC 13, platelet is 212. PTT 68. Chem istry shows blood sugar of 129. Microbiology: Blood cultures have been negative. Chest x-ray shows no active pulmonary disease. IMPRESSION AND PLAN: Acute stroke requiring thrombolytic therapy, on heparin, coronary artery diseas e, history of coronary artery bypass surgery, history of cardiomyopathy, pulmonary hypertension, paro xysmal atrial fibrillation, sleep apnea syndrome, carotid thrombus also, M2 branch. Spoke to aric farias's at bedside. All the questions answered. Spoke to social work assistant. Will be ready to m ove to acute care place in about 3 days or so because patient is started on Coumadin today. INR in t he morning. Out of bed to chair. Physical therapy. Thank you. Will follow with you. Helder David MD cc: [id number] TT: 07/12/2016 23:26:24 Confirmation # [id number] Dictation # [id number] mn
--- NOTE | 2016-07-13 06:19 | PN ---
DATE: 07/12/2016 SUBJECTIVE: The patient was seen and examined on the bedside. and son were on the bedside. No nausea, vomiting, or diarrhea. No hematuria or hematochezia. No swelling of the leg. No chest popeye n, no palpitation. No fever, no chills. PHYSICAL EXAMINATION: VITAL SIGNS: Temperature is 97.8, pulse 79, respiratory rate 20, blood pressure 130/81. HEENT: Head normocephalic, atraumatic. Eyes: PERRLA. Extraocular muscles intact. Conjunctivae ar e clear. Nose patent. Mucous membranes moist. NECK: Supple. No carotid bruit, JVD or thyromegaly. CHEST: Bilaterally symmetrical. HEART: S1, S2 positive. LUNGS: Clear to auscultation. ABDOMEN: Soft. Bowel sounds present. No organomegaly. EXTREMITIES: No edema, no cyanosis. NEUROLOGIC: The patient is awake, alert and follows simple commands. MEDICATIONS: Altace, aspirin, Coumadin, heparin, Lipitor, Lopressor, Protonix, Ranexa, Rocephin, Tri cor, Tylenol, allopurinol. LABORATORY DATA: White blood cells 13.3, hemoglobin 12.0, hematocrit 35.6, platelets 212. Glucose i s 115, 129, 103, 148, 103, 172. ASSESSMENT AND PLAN: The patient is a 65-year-old male, [place], who came with onset of left-hemipa resis, hemiplegia with findings of dense M2 segment of right MCA territory infarct, received tissue p lasminogen activator, is on a heparin drip, started Coumadin, has paroxysmal atrial fibrillation. Th e patient has right carotid thrombus, having several episodes of borderline fevers, 100.3. Urinalysi s is not showing any signs of urinary tract infection. Maybe the patient has increased temperature s econdary to neurological cause. The patient still on Rocephin. Blood cultures are pending. Support vickie care. Afebrile. Mild leukocytosis, seen by Dr. Herring, infectious disease. Ferny Michael, neurolog ist, and Dr. David, assembly cleaner/critical care. History of cardiomyopathy, pulmonary hypertension, sleep apnea syndrome. Aspiration precaution. Encourage BiPAP use. Gastrointestinal and deep vein thrombosis prophylaxis. Out of bed, physical therapy. Length of time discussion done with the . All questions answered. We will follow up. Louisa Bishop MD cc: [id number] TT: 07/13/2016 06:18:24 Confirmation # [id number] Dictation # [id number] tn
[2016-07-13] MEDS: Pantoprazole 40 mg Susp UD PO SCH (07:30)
[2016-07-13 07:34] LABS: INR 1.2 (0.93-1.08)
[2016-07-13] MEDS: cefTRIAXone 1 gm 1 GM/100 ML BAG IVPB SCH (10:00)
[2016-07-13] MEDS: RANOLAZINE PO SCH ×2 (10:00→21:57)
--- NOTE | 2016-07-13 13:25 | PN ---
DATE: 07/13/2016 The patient is in a chair being fed by family. PHYSICAL EXAMINATION: VITAL SIGNS: Blood pressure is 158/87, the heart rate is in the 80s. NECK: Negative JVD. LUNGS: Without rales. HEART: Reveals S1, S2. EXTREMITIES: Without edema. LABORATORIES: INR is 1.2. Chemistries: Glucose of 116. IMPRESSION: 1. Cerebrovascular accident. 2. Atrial fibrillation. 3. Sepsis. 4. Dilated cardiomyopathy. 5. History of coronary artery bypass surgery. 6. Hypercholesterolemia. PLAN: Given these findings, the patient will need to be fully anticoagulated with Coumadin. I have discussed the risks, benefits with the family in detail. Chriss Valverde MD cc: [id number] TT: 07/13/2016 13:24:39 Confirmation # [id number] Dictation # [id number] sn
[2016-07-13] MEDS: Heparin25000 units/250ml 1/2NS 25,000 UNITS/250 ML BAG IV PRN (16:00)
--- NOTE | 2016-07-13 16:32 | CP.PCM.PN ---
Subjective - Date & Time of Evaluation Date of Evaluation: 07/13/16 Time of Evaluation: 16:15 - Subjective Subjective: Infectious Disease Follow Up: July 13, 2016 65 yo male with extensive past medical history with sudden presentation of left sided weakness. He developed left arm shaking, difficulty breathing, gasping for air, and garbled speech. New onset borderline temperatures today of 100.2 F. His temperature reached as high as 100.3 F. The patient is awake and alert. No complaints. No fevers today. Objective - Vital Signs/Intake and Output Vital Signs (last 24 hours): Temp Pulse Resp BP Pulse Ox 98.3 F 87 20 150/72 99 07/13/16 08:34 07/13/16 08:34 07/13/16 08:34 07/13/16 10:00 07/13/16 08:34 Intake and Output: 07/13/16 07/13/16 06:59 18:59 Intake Total 600 1200 Output Total 350 1025 Balance 250 175 - Medications Medications: Current Medications Acetaminophen (Tylenol 325mg Tab) 650 mg PO Q6H PRN PRN Reason: Fever >100.4 F Last Admin: 07/11/16 18:02 Dose: 650 mg Allopurinol (Zyloprim) 200 mg PO DAILY [facility] Last Admin: 07/13/16 10:00 Dose: 200 mg Aspirin (Aspirin Chewable) 81 mg PO DAILY [facility] Last Admin: 07/13/16 10:00 Dose: 81 mg Atorvastatin Calcium (Lipitor) 10 mg PO HS [facility] Last Admin: 07/12/16 21:19 Dose: 10 mg Fenofibrate (Tricor) 145 mg PO DAILY [facility] Last Admin: 07/13/16 10:00 Dose: 145 mg Heparin Sodium/Sodium Chloride (Heparin 31267 Units/250ml 1/2 Normal Saline) 25 ,000 units in 250 mls @ 12.81 mls/hr IV .[id number] PRN; Protocol; 18 UNITS/KG/HR PRN Reason: ADJUST RATE PER PROTOCOL Last Admin: 07/12/16 09:00 Dose: 11.52 units/kg/hr, 8.199 mls/hr Ceftriaxone Sodium (Rocephin 1 Gram Ivpb) 1 gm in 100 mls @ 100 mls/hr IVPB DAILY [facility] PRN Reason: Protocol Last Admin: 07/13/16 10:00 Dose: 100 mls/hr Metoprolol Tartrate (Lopressor) 25 mg PO BID [facility] Last Admin: 07/13/16 10:00 Dose: 25 mg Non-Formulary Medication (Ranolazine [Ranexa]) 1 tab PO Q12H [facility] Last Admin: 07/13/16 10:00 Dose: 1 tab Pantoprazole Sodium (Protonix Susp) 40 mg PO ACB [facility] Last Admin: 07/13/16 07:30 Dose: 40 mg Ramipril (Altace) 5 mg PO DAILY [facility] Last Admin: 07/13/16 10:00 Dose: 5 mg Sevelamer HCl (Renagel) 800 mg PO WM [facility] Last Admin: 07/13/16 12:00 Dose: 800 mg Warfarin Sodium (Coumadin) 5 mg PO 1800 [facility] PRN Reason: Protocol Last Admin: 07/12/16 18:01 Dose: 5 mg - Labs Labs: 07/12/16 07:00 07/09/16 06:45 PT 13.0 Seconds (9.9-11.8) H 07/13/16 07:00 INR 1.20 (0.93-1.08) H 07/13/16 07:00 APTT 62.0 Seconds (23.7-30.8) H 07/13/16 07:00 - Constitutional Appears: Non-toxic, No Acute Distress, Chronically Ill - Head Exam Head Exam: ATRAUMATIC, NORMOCEPHALIC - Eye Exam Eye Exam: EOMI, PERRL Pupil Exam: NORMAL ACCOMODATION, PERRL - ENT Exam ENT Exam: Mucous Membranes Moist, Normal External Ear Exam, TM's Normal Bilaterally - Neck Exam Neck Exam: Full ROM, Normal Inspection - Respiratory Exam Respiratory Exam: Clear to Ausculation Bilateral, Rales, Respiratory Distress. absent: Rhonchi, Wheezes - Cardiovascular Exam Cardiovascular Exam: REGULAR RHYTHM, RRR, +S1, +S2 - GI/Abdominal Exam GI & Abdominal Exam: Soft, Normal Bowel Sounds. absent: Distended, Tenderness - Extremities Exam Extremities Exam: Full ROM, Normal Inspection - Neurological Exam Neurological Exam: Alert, Awake, CN II-XII Intact, Oriented x3 Additional comments: left sided residual weakness and left sided facial droop. Left hemiparaplegia - Psychiatric Exam Psychiatric exam: Normal Affect, Normal Mood - Skin Skin Exam: Intact, Normal Color Assessment and Plan - Assessment and Plan (Free Text) Assessment: 65 yo Martiniquais male with sudden onset of left sided hemiparesis/hemiplegia with findings of a dense M2 segment right MCA territory infarct. He received TPA. He had episode of paroxysmal atrial fibrillation when in the ER. 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 The patient has been having several episodes of borderline fevers up to 100.3 F. Patient has been in the hospital since 07/05/2016. No additional complaints. Urinalysis not showing signs of UTI. Would obtain Chest X-ray. Cannot rule out the increased temperature can be secondary to the the thrombus as well. Continue on Rocephin for now. Obtain blood cultures. Supportive care. Afebrile today. There is mild leukocytosis of 13.3 today. Thank you for allowing me to participate in the care of the patient, we will follow with you.
--- NOTE | 2016-07-13 23:26 | PN ---
DATE: 07/13/2016 PULMONARY PROGRESS NOTE REFERRING PHYSICIAN: Dr. Bishop. SUBJECTIVE: He is lying in the bed, sleepy, arousable, is at bedside. Refusing to use CPAP and BiPAP and . Not much cough, no sputum production, no nausea, no vomiting, diarrhea. No leg pa in or leg swelling. OBJECTIVE: GENERAL: No acute distress. VITAL SIGNS: Temperature is 99, heart rate 72, respiratory rate is 20, blood pressure 125/75, pulse ox 100% on nasal cannula. HEENT: Moist mucous membranes. Small oral cavity. Crowded airway. NECK: Short, thick neck. LUNGS: Has a fair airflow with few rhonchi. HEART: S1, S2. ABDOMEN: Soft, nontender. No organomegaly. EXTREMITIES: There is no edema. NEUROLOGIC: Sleepy, arousable, follows simple command. MEDICATIONS: He is on Altace 5 mg daily, aspiring 81 mg daily, Coumadin 5 mg given in is a dominique ght-based protocol, Lipitor 10 mg daily, metoprolol tartrate 25 mg twice a day, Protonix 40 mg daily, Ranexa 1 tablet q. 12 hours, Renagel 800 mg with meals, Rocephin 1 gram daily, Tricor 145 mg daily, Tylenol p.r.n. basis, allopurinol 200 mg daily. LABORATORY DATA: Reviewed, shows INR 1.20, PTT is 62. Blood sugar 116. 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 I spoke to the patient and at bedside. Encourage BiPAP use. The patient and re fusing to use CPAP. Understands risk/benefit ratio. Continue weight-based heparin protocol, Coumadi n 5 mg. INR in the morning. Gastric prophylaxis. Aspiration precaution. Keep head elevated at 45 degrees. Continue therapy. Thank you and will follow with you. Helder David MD cc: [id number] TT: 07/13/2016 23:25:53 Confirmation # [id number] Dictation # [id number] mn
[2016-07-14 06:51] LABS: INR 1.94 (0.93-1.08)
--- NOTE | 2016-07-14 06:58 | CP.PCM.PN ---
Subjective - Date & Time of Evaluation Date of Evaluation: 07/14/16 Time of Evaluation: 06:45 - Subjective Subjective: Evaluated patient upon request of the nurse for patient vomiting blood clots. Upon eval patient has left hemiparesis, on thickened liquid/puree diet, on heparin drip, warfarin, asa, on nasal canula o2, oral protonix and bp meds. h/o right CCA territory infarct, with h/o afib. VS reviewed stable Patient was not in resp distress, seen vomiting gastric fluid with blood clots, dark and some bright, no external nose bleed noticed, tried to examine pharynx, to examine posterior nasal bleed but patient continued to gag. 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 David on the phone, spoke to nurse and patient. See orders for details. Objective - Vital Signs/Intake and Output Vital Signs (last 24 hours): Temp Pulse Resp BP Pulse Ox 99 F 72 20 125/75 100 07/13/16 16:00 07/13/16 17:24 07/13/16 16:00 07/13/16 17:24 07/13/16 16:00 Intake and Output: 07/13/16 07/14/16 18:59 06:59 Intake Total 1450 Output Total 1025 Balance 425 - Medications Medications: Current Medications Acetaminophen (Tylenol 325mg Tab) 650 mg PO Q6H PRN PRN Reason: Fever >100.4 F Last Admin: 07/11/16 18:02 Dose: 650 mg Allopurinol (Zyloprim) 200 mg PO DAILY [facility] Last Admin: 07/13/16 10:00 Dose: 200 mg Aspirin (Aspirin Chewable) 81 mg PO DAILY [facility] Last Admin: 07/13/16 10:00 Dose: 81 mg Atorvastatin Calcium (Lipitor) 10 mg PO HS [facility] Last Admin: 07/13/16 21:57 Dose: 10 mg Fenofibrate (Tricor) 145 mg PO DAILY [facility] Last Admin: 07/13/16 10:00 Dose: 145 mg Heparin Sodium/Sodium Chloride (Heparin 52073 Units/250ml 1/2 Normal Saline) 25 ,000 units in 250 mls @ 12.81 mls/hr IV .[id number] PRN; Protocol; 18 UNITS/KG/HR PRN Reason: ADJUST RATE PER PROTOCOL Last Admin: 07/13/16 16:00 Dose: 11.52 units/kg/hr, 8.199 mls/hr Ceftriaxone Sodium (Rocephin 1 Gram Ivpb) 1 gm in 100 mls @ 100 mls/hr IVPB DAILY [facility] PRN Reason: Protocol Last Admin: 07/13/16 10:00 Dose: 100 mls/hr Pantoprazole Sodium (Protonix 40mg Ivpb) 40 mg in 100 mls @ 20 mls/hr IVPB .Q5H [facility] Potassium Chloride 20 meq/ (Dextrose/Sodium Chloride) 1,010 mls @ 50 mls/hr IV .[id number] [facility] Metoprolol Tartrate (Lopressor) 25 mg PO BID [facility] Last Admin: 07/13/16 17:24 Dose: 25 mg Non-Formulary Medication (Ranolazine [Ranexa]) 1 tab PO Q12H [facility] Last Admin: 07/13/16 21:57 Dose: 1 tab Ondansetron HCl (Zofran Inj) 4 mg IVP Q6H PRN PRN Reason: Nausea/Vomiting Ramipril (Altace) 5 mg PO DAILY [facility] Last Admin: 07/13/16 10:00 Dose: 5 mg Sevelamer HCl (Renagel) 800 mg PO WM [facility] Last Admin: 07/13/16 17:24 Dose: 800 mg Warfarin Sodium (Coumadin) 5 mg PO 1800 [facility] PRN Reason: Protocol Last Admin: 07/13/16 17:23 Dose: 5 mg - Labs Labs: 07/12/16 07:00 07/09/16 06:45 PT 13.0 Seconds (9.9-11.8) H 07/13/16 07:00 INR 1.20 (0.93-1.08) H 07/13/16 07:00 APTT 62.0 Seconds (23.7-30.8) H 07/13/16 07:00
[2016-07-14] MEDS: Pantoprazole 40mg/100ml IVPB 40 MG/100 ML BAG IVPB SCH ×5 (07:03→23:08)
[2016-07-14 07:26] LABS: PARTIAL THROMBOPLASTIN TIME 72.7 Seconds (23.7-30.8)
--- NOTE | 2016-07-14 07:37 | PN ---
DATE: 07/13/2016 SUBJECTIVE: The patient was seen and examined on the bedside. Looks comfortable. was standing on the bedside also. No big change in the status. Today, he had chance to sit on the chair. No na usea, vomiting, or diarrhea. No hematuria or hematochezia, getting both Coumadin and heparin bridgin g. PHYSICAL EXAMINATION: VITAL SIGNS: Temperature 99, pulse 72, blood pressure 125/75, respiratory rate 20, pulse oximetry 10 0. HEENT: Head normocephalic, atraumatic. Eyes: PERRLA. Extraocular muscles intact. Conjunctivae cl ear. Nose patent. Mucous membranes moist. NECK: Supple. No carotid bruit, JVD or thyromegaly. CHEST: Bilaterally symmetrical. HEART: S1, S2 positive. LUNGS: Clear to auscultation. ABDOMEN: Soft. Bowel sounds present. No organomegaly. EXTREMITIES: No edema, no cyanosis. NEUROLOGIC: The patient is awake, alert, following small commands. MEDICATIONS: Altace, aspirin, Coumadin, heparin, Lipitor, Lopressor, Protonix, Flonase, Rocephin, Tr icor, Tylenol, allopurinol. LABORATORY DATA: White blood cells 13.3, hemoglobin 12.0, hematocrit 35.6, platelets 212. Glucose 1 50, 175, 129. PT 13. INR 1.20. PTT 62. ASSESSMENT AND PLAN: The patient is a 65-year-old male with leukocytosis, anemia, hyperglycemia, see n by infectious disease, Dr Dieudonne Herring. The patient has left-sided hemiparesis/hemiplegia with findi ng of dense M2 segment right middle cerebral artery territory infarct. He received tissue plasminoge n activator. He had episode of paroxysmal atrial fibrillation when in the Emergency Room. Found to know that the patient has right carotid thrombus. The patient had episodes of fever, 100.3. Urinaly sis and chest x-ray do not show sign of infection. Maybe fever is due to thrombus or brain lesion. The patient is getting, Rocephin. Reviewed Dr. Herring's notes. I reviewed Dr. Chriss Valverde's and Dr. Yusef ontiveros's notes also. The patient has atrial fibrillation, dilated cardiomyopathy, hypercholesterolemia, status post thrombolytic therapy, pulmonary hypertension. Length of time discussion done with the sari barnes's . She wanted to learn the result of the chest x-ray. I read for her, answered all quest ions. staff services manager are on the case. Trying to get placement for the patient's acute care. Monit or INR. Out of bed to the chair. Physical therapy. We will follow up. Louisa Bishop MD cc: [id number] TT: 07/14/2016 07:36:51 Confirmation # [id number] Dictation # [id number] tn
[2016-07-14] MEDS: cefTRIAXone 1 gm 1 GM/100 ML BAG IVPB SCH (10:15)
[2016-07-14] MEDS: Potassium Chloride 20 MEQ in Dextrose 5%/0.9% NS 1,000 ML IV SCH (10:21)
[2016-07-14 12:02] LABS: ADD MANUAL DIFF? NO
[2016-07-14 12:41] LABS: BASO # 0.03 K/mm3 (0.0-2.0); BASO % 0.2 % (0.0-3.0); EOS % 0.2 % (1.5-5.0); GRAN # 10.94 (1.4-6.5); GRAN % 89.6 % (50.0-68.0); HEMATOCRIT 34.7 % (42.0-52.0); LYMPH # 0.7 (1.2-3.4); LYMPH % 5.5 % (22.0-35.0); MEAN CELL VOLUME 84.8 fL (80.0-105.0); MEAN CORPUSCULAR HEMOGLOBIN 29.1 pg (25.0-35.0); MEAN CORPUSCULAR HGB CONC 34.3 g/dl (31.0-37.0); MEAN PLATELET VOLUME 10.9 fl (7.0-11.0); MONO # 0.6 (0.1-0.6); MONO % 4.5 % (1.0-6.0); PLATELET COUNT 271 10^3/uL (120.0-450.0); RED CELL DISTRIBUTION WIDTH 13.7 % (11.5-14.5); WHITE BLOOD COUNT 12.2 10^3/ul (4.5-11.0)
[2016-07-14] MEDS ORDERED: Pantoprazole 40mg/100ml IVPB 40 MG/100 ML BAG IV SCH (12:44)
[2016-07-14] MEDS: RANOLAZINE PO SCH ×2 (13:19→21:29)
[2016-07-14 13:21] LABS: ARTERIAL BLOOD GAS HCO3 25.5 mmol/L (21-28); ARTERIAL BLOOD GAS O2 CAPACITY 16.2 mL/dl (16-24); ARTERIAL BLOOD GAS O2 CONTENT 16.1 ML/dl (15-23); ARTERIAL BLOOD GAS PH 7.47 (7.35-7.45); ARTERIAL BLOOD HGB O2 SAT 96.6 % (95.0-98.0); CARBOXYHEMOGLOBIN 1.8 % (0.5-1.5); HHB 0.7 % (0-5); METHEMOGLOBIN 0.9 % (0.0-3.0)
--- NOTE | 2016-07-14 13:36 | PN ---
DATE: 07/14/2016 The patient seen and examined at bedside. He is comfortable. He talks full sentences when he talks. He is a little bit lethargic; however, easily arousable and following commands. He is not in respiratory or otherwise distress. He does not use accessory muscles to breathe and he does not have paradoxical respiration. PHYSICAL EXAMINATION: VITAL SIGNS: Blood pressure 145/87, heart rate 82, temperature 98.3, oxygen saturation 100%, and respiratory rate 20. Temperature 98.7, heart rate 89, blood pressure 145/95, respiratory rate 18, oxygen saturation 100% on nasal cannula 2 liters per minute. HEAD AND NECK: Atraumatic. LUNGS: Clear to auscultation bilaterally. HEART: Regular rate and rhythm. S1, S2 normal. ABDOMEN: Soft, nontender, nondistended. MUSCULOSKELETAL: No C/C/E. NEUROLOGIC: The patient moves right upper and lower extremities spontaneously ( patient had right MCA stroke which left dense left-sided hemiplegia). SKIN: Moist. PSYCHIATRIC: The patient is alert and oriented x 3, not in distress and following commands easily. LABORATORY DATA: WBC 12.2, hemoglobin 11.9 (last episode of hemetemesis was at 7 in in the morning, so this hemoglobin is 5 hours after the initial episode of hemetemesis), platelet count 271. MEDICATIONS: Tylenol p.r.n., allopurinol, D5 with potassium 50 per hour, Tricor , metoprolol, Zofran, Protonix, ramipril, ranolazine, ceftriaxone, sevelamer, warfarin. ASSESSMENT AND PLAN: This is a 65-year-old gentleman who had episode of hematemesis in the morning in the setting of iatrogenic coagulopathy due to heparin (patient had acute carotid artery thrombosis and was put on heparin at that time). Once hematemesis occurred, heparin was put on hold and warfarin was put on hold as well. The patient does not have active signs of bleeding. His hemoglobin is stable. His lactic acid level, his troponin level, and EKG are pending. ABG is pending to evaluate his CO2 retention/ventilatory status. At present time, I will proceed with n.p.o., intravenous fluid, Protonix drip. Gastrointestinal consult to consider endoscopy. At present time, I recommend continue monitoring this patient either on the med/ surg floor or telemetry (up for discretion of primary medical doctor); however, no need for medical ICU at present time. If clinical situation changes, including hemodynamic instability or respiratory distress, active bleed, please call ICU consult for reevaluation. Addendum: no c02 retention, lactate is wnl, no new EKG changes and no troponin leak. Continue with serial CBC. ccm time 40 min Carlton Mosley MD cc: [id number] TT: 07/14/2016 13:33:41 Confirmation # [id number] Dictation # [id number] sn FENG
--- NOTE | 2016-07-14 14:12 | PN ---
DATE: 07/14/2016 The patient with an episode of hematemesis today. PHYSICAL EXAMINATION: VITAL SIGNS: Blood pressure 153/97. The heart rate is in the 90s. NECK: Negative JVD. LUNGS: Without rales. HEART: Revealed S1, S2. EXTREMITIES: Without edema. LABORATORY DATA: PT/INR is 1.94. The PTT was 72. Glucose is 116. The hemoglobin is 11.9. IMPRESSION: 1. Hemetemesis, on intravenous heparin and Coumadin. 2. Stable anemia. 3. History of cerebrovascular accident. 4. History of atrial fibrillation. PLAN: Given these findings, the patient is at increased risk for recurrent CVA from thromboembolic p henomenon and his atrial fibrillation. The patient will need long-term anticoagulation. The patient will need a GI consult to evaluate the source of his upper GI bleed before replacing him back on his anticoagulation. Chriss Valverde MD cc: [id number] TT: 07/14/2016 14:11:46 Confirmation # [id number] Dictation # [id number] dario
--- NOTE | 2016-07-14 15:46 | RAD ---
HISTORY: R/O obstruction COMPARISON: Chest x-ray performed 07/12/16 ; no prior abdominal imaging available for comparison. FINDINGS: Lung bases appear clear. Median sternotomy wires. Partially imaged borderline cardiomegaly. Nonspecific bowel gas pattern. No definite free air. Pelvic calcifications, likely phleboliths. No acute osseous abnormality is detected. Mild curvature of the lumbar spine convex to the left, may be positional. IMPRESSION: Nonspecific bowel gas pattern.
--- NOTE | 2016-07-14 16:43 | CP.PCM.PN ---
Subjective - Date & Time of Evaluation Date of Evaluation: 07/14/16 Time of Evaluation: 15:00 - Subjective Subjective: Infectious Disease Follow Up: July 14, 2016 65 yo male with extensive past medical history with sudden presentation of left sided weakness. He developed left arm shaking, difficulty breathing, gasping for air, and garbled speech. His temperature reached as high as 100.3 F during this hospitalization. The patient is awake and alert. No complaints. No fevers today. This morning the patient had coffee ground emesis. GI evaluating patient. ICU evaluating patient. Abdominal X-ray did not show any issues. Objective - Vital Signs/Intake and Output Vital Signs (last 24 hours): Temp Pulse Resp BP Pulse Ox 98.7 F 90 18 153/97 H 100 07/14/16 06:00 07/14/16 10:15 07/14/16 06:00 07/14/16 10:07/14/16 06:00 - Medications Medications: Current Medications Acetaminophen (Tylenol 325mg Tab) 650 mg PO Q6H PRN PRN Reason: Fever >100.4 F Last Admin: 07/11/16 18:02 Dose: 650 mg Allopurinol (Zyloprim) 200 mg PO DAILY [facility] Last Admin: 07/14/16 10:14 Dose: 200 mg Aspirin (Aspirin Chewable) 81 mg PO DAILY [facility] Last Admin: 07/13/16 10:00 Dose: 81 mg Atorvastatin Calcium (Lipitor) 10 mg PO HS [facility] Last Admin: 07/13/16 21:57 Dose: 10 mg Fenofibrate (Tricor) 145 mg PO DAILY [facility] Last Admin: 07/14/16 10:15 Dose: 145 mg Ceftriaxone Sodium (Rocephin 1 Gram Ivpb) 1 gm in 100 mls @ 100 mls/hr IVPB DAILY [facility] PRN Reason: Protocol Last Admin: 07/14/16 10:15 Dose: 100 mls/hr Potassium Chloride 20 meq/ (Dextrose/Sodium Chloride) 1,010 mls @ 50 mls/hr IV .[id number] [facility] Last Admin: 07/14/16 10:21 Dose: 50 mls/hr Pantoprazole Sodium (Protonix 40mg Ivpb) 40 mg in 100 mls @ 20 mls/hr IVPB .Q5H [facility] Last Admin: 07/14/16 13:12 Dose: 20 mls/hr Metoprolol Tartrate (Lopressor) 25 mg PO BID [facility] Last Admin: 07/14/16 10:15 Dose: 25 mg Non-Formulary Medication (Ranolazine [Ranexa]) 1 tab PO Q12H [facility] Last Admin: 07/14/16 13:19 Dose: Not Given Ondansetron HCl (Zofran Inj) 4 mg IVP Q6H PRN PRN Reason: Nausea/Vomiting Last Admin: 07/14/16 07:03 Dose: 4 mg Ramipril (Altace) 5 mg PO DAILY [facility] Last Admin: 07/14/16 10:15 Dose: 5 mg Sevelamer HCl (Renagel) 800 mg PO WM [facility] Last Admin: 07/14/16 13:14 Dose: Not Given Warfarin Sodium (Coumadin) 5 mg PO 1800 [facility] PRN Reason: Protocol Last Admin: 07/13/16 17:23 Dose: 5 mg - Labs Labs: 07/14/16 12:01 07/09/16 06:45 PT 21.0 Seconds (9.9-11.8) H 07/14/16 06:20 INR 1.94 (0.93-1.08) H 07/14/16 06:20 APTT 31.2 Seconds (23.7-30.8) H 07/14/16 12:01 - Constitutional Appears: Non-toxic, No Acute Distress, Chronically Ill - Head Exam Head Exam: ATRAUMATIC, NORMOCEPHALIC - Eye Exam Eye Exam: EOMI, PERRL Pupil Exam: NORMAL ACCOMODATION, PERRL - ENT Exam ENT Exam: Mucous Membranes Moist, Normal External Ear Exam, TM's Normal Bilaterally - Neck Exam Neck Exam: Full ROM, Normal Inspection - Respiratory Exam Respiratory Exam: Clear to Ausculation Bilateral, NORMAL BREATHING PATTERN. absent: Rales, Rhonchi, Wheezes - Cardiovascular Exam Cardiovascular Exam: REGULAR RHYTHM, RRR, +S1, +S2 - GI/Abdominal Exam GI & Abdominal Exam: Soft, Normal Bowel Sounds. absent: Distended, Tenderness - Extremities Exam Extremities Exam: Full ROM, Normal Inspection - Neurological Exam Neurological Exam: Alert, Awake, CN II-XII Intact, Oriented x3 Additional comments: left sided residual weakness and left sided facial droop. Left hemiparaplegia - Psychiatric Exam Psychiatric exam: Normal Affect, Normal Mood - Skin Skin Exam: Intact, Normal Color Assessment and Plan - Assessment and Plan (Free Text) Assessment: 65 yo [place] male with sudden onset of left sided hemiparesis/hemiplegia with findings of a dense M2 segment right MCA territory infarct. He received TPA. He had episode of paroxysmal atrial fibrillation when in the ER. 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 The patient has been having several episodes of borderline fevers up to 100.3 F. Patient has been in the hospital since 07/05/2016. No additional complaints. Urinalysis not showing signs of UTI. Would obtain Chest X-ray. Cannot rule out the increased temperature can be secondary to the the thrombus as well. Continue on Rocephin for now. Obtain blood cultures. Supportive care. Afebrile today. There is mild leukocytosis of 12.2 today. Noted that this morning there was coffee ground emesis. Thank you for allowing me to participate in the care of the patient, we will follow with you.
--- NOTE | 2016-07-14 17:51 | PN ---
DATE: 07/14/2016 REFERRING PHYSICIAN: Dr. Bishop SUBJECTIVE: He is lying in the bed, head at 45 degrees, eyes are closed. is at the bedside. E wilmer morning events noted. Spoke to house physician. Had vomiting with some blood, so heparin was d iscontinued. CBC was done. Followup CBC pending. Presently, he is comfortable. There is no nausea , no vomiting, no abdominal pain. There is no melena. No leg pain or leg swelling. OBJECTIVE: GENERAL: No acute distress. VITAL SIGNS: Temp is 98, heart rate is 90, respiratory rate is 20, blood pressure 153/97, pulse ox 1 00% on 2 liter nasal cannula. HEENT: Moist mucous membrane. Crowded airway. Mallampati score is 4. NECK: Supple. No JVD. LUNGS: Has a fair airflow with few rhonchi. HEART: S1 and S2. ABDOMEN: Soft, nontender. No organomegaly. EXTREMITIES: There is no edema. NEUROLOGIC: Sleepy, arousable, follows simple commands. MEDICATIONS: He is on Altace 5 mg daily, Coumadin is placed on hold. Also, aspirin is put on hold, Lipitor 10 mg daily, metoprolol tartrate 25 mg twice a day, IV fluid with potassium 50 mL per hour, P rotonix 40 mg IV daily, also Ranexa 1 tab q. 12 hours, Renagel 800 mg p.o. with meals, Rocephin 1 gra m daily, Tricor 145 mg daily, Tylenol p.r.n., Zofran p.r.n. basis, allopurinol 200 mg daily. LABORATORY DATA: Shows hemoglobin 11.9, hematocrit 34.7, WBC 12.2, platelet count is 271. PTT is 31 , INR 1.94. ABG done this morning showed pH 7.47, pCO2 35, O2 140. That is on nasal cannula. Blood sugar is 116. Lactic acid 1.0. Troponin 0.03. IMPRESSION AND PLAN: Status post thrombotic stroke requiring tissue plasminogen activator, responded well with improvement of cognitive function, but still has internal carotid and M2 branch thrombus, been on heparin, which been converted to Coumadin. This morning's events noted, so heparin was disco ntinued, Coumadin was discontinued, aspirin was placed on hold. Presently, there is no active sign o f bleeding. There is no melena, no nausea or vomiting. Seems like H and H has been stable. I will restart aspirin 81 mg daily. Follow H and H close, twice a day. Will move patient [facility] for close monitoring. Spoke to patient's at bedside. All their questions answered. Discusse d about risk/benefit ratio of anticoagulation and bleed with recurrent stroke. She understands and a grees with the plan. Thank you and will follow with you. Helder David MD cc: [id number] TT: 07/14/2016 17:50:46 Confirmation # [id number] Dictation # [id number] en
--- NOTE | 2016-07-14 18:33 | CARD ---
APPROVED REPORT EKG Measurement Heart [id number] <Conclusion> Atrial fibrillation Right bundle branch block Inferior infarct, age undetermined T wave abnormality, consider lateral ischemia or digitalis effect Abnormal ECG
--- NOTE | 2016-07-14 19:28 | CON ---
DATE: 07/14/2016 Seen and examined at the bedside this afternoon. REQUEST FOR CONSULT: Vomiting blood clots. HISTORY OF PRESENT ILLNESS: This is a 65-year-old male with a history of coronary artery disease, MA, with quadruple bypass, was admitted to the hospital with sudden onset of left-sided weakness and slurred speech. The patient had increased difficulty breathing and was intubated in the field. The patient was found to have right MCA and was given TPA. The patient also found to have an acute thrombus in the right internal carotid artery and has atrial fibrillation. The patient was started on heparin on 07/07 and aspirin and was started on Coumadin and on 07/12. He has not had any reported episodes of any bleeding throughout this time. This morning, the patient was noticed to have an increasing heart rate. The nurse went into the room and the patient complained of nausea. Then the patient vomited blood clots with a few other episodes. The last reported bloody vomit was around 9:00 a.m. According to the nursing staff, the patient was more alert, awake, and verbal this morning and now appears to be lethargic. The patient is able to answer simple questions , yes and no. He does not report any nausea now or any abdominal pain. No distress noted. PAST MEDICAL HISTORY: History of myocardial infarction. The patient is currently lethargic, answers a few simple questions, so history was obtained from the patient's chart and nursing staff. Past medical history is hyperlipidemia, coronary artery disease, chronic kidney disease, gout, diverticulitis. PAST SURGICAL HISTORY: The patient had a CABG x 4 vessels and appendectomy. The patient denies ever having EGD or colonoscopy. ALLERGIES: No known drug allergies. SOCIAL HISTORY: The patient was a former heavy smoker, occasionally still smokes. Denies any substance abuse or ETOH. MEDICATIONS: Reviewed as per APR. REVIEW OF SYSTEMS: Unable to review with patient as he is lethargic, minimally answering questions. See HPI. VITAL SIGNS: Temperature is 98.7, blood pressure 153/97, pulse 90, respirations 18, 100 on nasal cannula. LABORATORY DATA: WBC 12.2, H and H is 11.9 and 34.7, platelets are 271. PT this morning was 21.0, INR is 1.94 and PTT 72.7. It was repeated again at and it is 31.2. Last CMP is noted from 07/09. Sodium 135, K is 3.8, BUN 26, creatinine is 1.7. Magnesium 2.1, total bilirubin is 2.1, AST 46, ALT 24, alkaline phosphatase is 42. Chest x-ray was done on 07/12, showed mild cardiomegaly and vascular congestion. He had a neck MRA that showed no evidence of significant stenosis or thrombus in the carotid arteries. Head MRA was done, which shows a thrombus in the proximal right middle cerebral artery extending into the supraclinoid carotid, corresponds with the thrombus visualized on CT and extensive right-sided MCA distribution infarct. Brain MRI , extensive acute infarct in the right hemisphere in the distribution of the right middle cerebral artery. PHYSICAL EXAMINATION: HEENT: Sclerae are anicteric. NECK: Supple. CARDIAC: S1, S2. LUNGS: Decreased breath sounds. No rales or wheeze. ABDOMEN: With bowel sounds, soft, not distended, nontender on palpation. No rebound or guarding. EXTREMITIES: No edema. The patient has positive left-sided weakness. 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 ASSESSMENT: Upper gastrointestinal bleed, rule out any peptic ulcer disease, angiodysplasia. The patient with cerebrovascular accident, internal carotid thrombus, paroxysmal atrial fibrillation, history of coronary artery disease and coronary bypass surgery, chronic renal insufficiency. PLAN: Currently heparin and Coumadin are on hold. Continue Protonix drip. Aspirin is also on hold. The patient is on IV antibiotics and on IV fluids for hydration. At the moment, patient's hemoglobin is steady. We will monitor him closely. The patient has not had any further episodes of hematemesis. Consider reversal of coagulopathy with FFP if endoscopic intervention is required, no Vitamin K at this time. The patient with CVA. The patient is also going to be evaluated for ICU transfer. We will continue to monitor hemoglobin and hematocrit closely and any bleeding. The patient is currently n.p.o. as well. Thank you for this consult and for allowing us to participate in your patient's care. We will make further recommendations based upon the patient's clinical course. The patient was seen and case discussed with Dr. Rivera. ADDENDDUM: Patient seen again this time at bedside, the patient was actively having nausea and vomited what appeared to be dark bile mixed with coffee ground, no bright red blood. It was explained to her in detail by Dr. Rivera regarding her GI status and the risk, benefits and alternatives of having upper endoscopy and anticoagulant. She was adamant that she did not want to put her at risk and did not want to have EGD done. We request stat abdominal xray r/o obstruction.Continue PPI and NPO, repeat CBC in PM. Luz BROOKE cc: [id number] TT: 07/14/2016 19:27:39 Confirmation # [id number] Dictation # [id number] claudy FENG
[2016-07-14 22:05] LABS: HEMATOCRIT 33.2 % (42.0-52.0); MEAN CELL VOLUME 84.7 fL (80.0-105.0); MEAN CORPUSCULAR HEMOGLOBIN 29.1 pg (25.0-35.0); MEAN CORPUSCULAR HGB CONC 34.3 g/dl (31.0-37.0); MEAN PLATELET VOLUME 10.2 fl (7.0-11.0); RED CELL DISTRIBUTION WIDTH 13.7 % (11.5-14.5); WHITE BLOOD COUNT 11.4 10^3/ul (4.5-11.0)
--- NOTE | 2016-07-15 00:40 | PN ---
DATE: 07/14/2016 SUBJECTIVE: The patient was seen and examined on the bedside, lying down comfortably. Eyes are closed. Family member was not on the bedside. Discussion done with Dr. David about patient's GI bleeding. Miguel's consult called. Hold heparin, aspirin and Coumadin. Has vomiting with some blood. Labs repeated. By looking, he looks comfortable, but a little bit lethargic. Now not feeling nauseous. No abdominal pain. No fever, no chills. PHYSICAL EXAMINATION: VITAL SIGNS: Temperature 98, heart rate 90, respiratory rate 20, blood pressure 153/97, pulse oximetry 100% on 2 liters nasal cannula. HEAD: Normocephalic, atraumatic. EYES: PERRLA, extraocular muscles intact. Conjunctivae clear. Nose patent. Mucous membranes moist. NECK: Supple. No carotid bruit, JVD or thyromegaly. LUNGS: Has fair airflow with few rhonchi. HEART: S1, S2 positive. ABDOMEN: Soft. No organomegaly. EXTREMITIES: No edema, no cyanosis. NEUROLOGIC: The patient is sleepy, arousable, follows simple commands. MEDICATIONS: Altace, Coumadin is on hold. Aspirin, heparin is on hold. Lipitor, metoprolol, IV fluid, Protonix, Ranexa, Rocephin, Tricor, Tylenol, Zofran, allopurinol. LABORATORY DATA: Hemoglobin 11.9, hematocrit 34.7, white blood cells 12.2, platelets were 71. Blood sugar is 116. Troponin 0.03. ASSESSMENT AND PLAN: The patient is a 65-year-old male status post thrombotic stroke requiring tissue plasminogen activator. Responded very well, improvement in the cognitive function, but still has internal carotid and M2 branch thrombus. Was on heparin, which was ,to Coumadin because I was planning to send the patient to acute rehab. This morning, patient has vomiting. Heparin discontinued. Coumadin discontinued. Aspirin on hold. now active bleeding. No melena, nausea, vomiting, hematuria or hematochezia. Will followup with hemoglobin and hematocrit. Dr. David restarted aspirin daily. Dr. David transferred patient to telemetry for close monitoring. He spoke to the patient's on the bedside. All questions answered. I reviewed Dr. David's notes. The patient's knows risks and benefits of anticoagulation and bleed with the stroke. The patient is very sick. Family is aware of that. We will follow up. Louisa Bishop MD cc: [id number] TT: 07/15/2016 00:39:49 Confirmation # [id number] Dictation # [id number] sn MTDD
--- NOTE | 2016-07-15 01:16 | CON ---
DATE: 07/14/2016 ADDENDUM: SUBJECTIVE: This patient was seen and evaluated earlier today. This is an addendum to the GI consul tation report dictated by Luz Greene NP. This 65-year-old patient is admitted with status post cer ebrovascular accident, atrial fibrillation, was on heparin, Coumadin was started. Had episodes of co ffee ground vomitus today. GI consultation was requested to evaluate the GI bleeding. I also spoke with Dr. Valverde, the supervisor machining. The concern is about finding out the source of the bleeding and nee d to continue the anticoagulation. I did have a detailed discussion with the patient's , who was at bedside. Fully explained the patient's condition and did explain to her about the endoscopy. I did also explain that he also has slightly more risk in view of recent CVA. However, is important to find out the source of bleeding. The risks, benefits and alternatives were clearly explained to the patient and the benefit of finding out source of the bleeding and the risk involved with this proced ure including anesthesia explained to the patient. 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 At the moment, since the blood count is stable, she does not want to undergo the endoscopy procedure right now. Since the heparin has been on hold, the kerry ent has been started on aspirin. The plan is to monitor closely hemoglobin and hematocrit. If the p jarrett's is agreeable for endoscopy, we will consider doing endoscopy. If she is refusing an en doscopy and the hemoglobin is stable, we will consider restarting the patient on heparin and continue to monitor the hemoglobin and we will wait for at least 3 readings of the stable H and H before we r estart the heparin. Presently, the patient's INR is 1.94 and PTT was 72 and . Last PTT was 72. 7. on hold. Requested for an obstructive series in view of the vomiting to rule out any obstruction. This was re viewed and it showed only nonspecific gas pattern. The patient has also been empirically on antibiot ics, Rocephin, and also being followed by ID. The cardiology and pulmonary notes are reviewed. The patient was also earlier evaluated by the print production coordinator. Time spent evaluating the patient according to the care was approximately 40 minutes. Thank you very much for allowing us to participate in the care of the patient. Giorgi Rivera MD cc: [id number] TT: 07/15/2016 01:16:07 Confirmation # [id number] Dictation # [id number] mn
[2016-07-15] MEDS: Pantoprazole 40mg/100ml IVPB 40 MG/100 ML BAG IVPB SCH ×4 (04:38→20:29)
[2016-07-15] MEDS: Potassium Chloride 20 MEQ in Dextrose 5%/0.9% NS 1,000 ML IV SCH ×3 (04:38→22:38)
[2016-07-15 09:01] LABS: ADD MANUAL DIFF? NO
[2016-07-15 09:04] LABS: BASO # 0.02 K/mm3 (0.0-2.0); BASO % 0.2 % (0.0-3.0); EOS # 0.1 (0.0-0.7); EOS % 0.8 % (1.5-5.0); GRAN # 7.86 (1.4-6.5); GRAN % 80.2 % (50.0-68.0); HEMATOCRIT 33.7 % (42.0-52.0); LYMPH # 1.1 (1.2-3.4); LYMPH % 10.7 % (22.0-35.0); MEAN CELL VOLUME 84.9 fL (80.0-105.0); MEAN CORPUSCULAR HGB CONC 34.1 g/dl (31.0-37.0); MEAN PLATELET VOLUME 10.2 fl (7.0-11.0); MONO # 0.8 (0.1-0.6); MONO % 8.1 % (1.0-6.0); PLATELET COUNT 262 10^3/uL (120.0-450.0); RED CELL DISTRIBUTION WIDTH 13.7 % (11.5-14.5); WHITE BLOOD COUNT 9.8 10^3/ul (4.5-11.0)
[2016-07-15 09:14] LABS: ALB/GLOB RATIO 0.9 (1.1-1.8); CALCIUM 9.4 mg/dL (8.4-10.5); POTASSIUM 4.4 mmol/L (3.6-5.0); TOTAL PROTEIN 7.1 g/dL (5.8-8.3)
[2016-07-15] MEDS: cefTRIAXone 1 gm 1 GM/100 ML BAG IVPB SCH (09:57)
[2016-07-15] MEDS: RANOLAZINE PO SCH (09:58)
[2016-07-15 10:13] LABS: MEAN CELL VOLUME 85.6 fL (80.0-105.0); MEAN CORPUSCULAR HEMOGLOBIN 28.7 pg (25.0-35.0); MEAN CORPUSCULAR HGB CONC 33.5 g/dl (31.0-37.0); MEAN PLATELET VOLUME 9.9 fl (7.0-11.0); RED CELL DISTRIBUTION WIDTH 13.8 % (11.5-14.5); WHITE BLOOD COUNT 9.8 10^3/ul (4.5-11.0)
[2016-07-15] MEDS ORDERED: Heparin25000 units/250ml 1/2NS 25,000 UNITS/250 ML BAG IV PRN (10:13)
[2016-07-15 10:26] LABS: INR 3.74 (0.93-1.08)
--- NOTE | 2016-07-15 10:32 | PN ---
DATE: 07/15/2016 The patient is without repeat nausea and vomiting. PHYSICAL EXAMINATION: VITAL SIGNS: Blood pressure 152/80. The heart rate is atrial fibrillation in the 80s. NECK: Negative JVD. LUNGS: Without rales. HEART: Reveals S1, S2. EXTREMITIES: Without edema. LABORATORY DATA: BUN and creatinine are 35 and 1.7. The hemoglobin is 11.5. IMPRESSION: 1. Questionable hematemesis. 2. No change in his anemia. 3. Cerebrovascular accident. 4. Atrial fibrillation. Given these findings, the patient will need to be on anticoagulation because of his high risk of recu rrent thromboembolic phenomenon. I have discussed with the patient's who refuses endoscopy. She understands the difficulty in ma naging him with anticoagulation if she refuses to rule out a GI bleed. After much discussion, the pa cameron's is agreeable to restart on heparin and follow the hemoglobin. She understands the incre ased risk of bleeding if the patient does have a structural bleeding source from the stomach. Chriss Valverde MD cc: [id number] TT: 07/15/2016 10:32:29 Confirmation # [id number] Dictation # [id number] dario
--- NOTE | 2016-07-15 15:45 | CP.PCM.PCO ---
Physician Communication Note - Physician Communication Note Physician Communication Note: comp down,FU note in chart,ok restart heparin,no GI contraindication,cl liq
[2016-07-15] MEDS: Lidocaine 5% Patch TD SCH (17:16)
--- NOTE | 2016-07-15 18:41 | CP.PCM.PN ---
Subjective - Date & Time of Evaluation Date of Evaluation: 07/15/16 Time of Evaluation: 10:00 - Subjective Subjective: [employer] Down earlier. Seen and examined earlier today, at bedside this am , no further episodes of hematemsis or nausea. Patient easily arousable, no acute events overnight. No overt GI bleed reproted, abdominal xray negative. Objective - Vital Signs/Intake and Output Vital Signs (last 24 hours): Temp Pulse Resp BP Pulse Ox 97.8 F 85 22 123/85 97 07/15/16 08:04 07/15/16 17:14 07/15/16 08:04 07/15/16 17:14 07/15/16 08:04 Intake and Output: 07/15/16 07/15/16 06:59 18:59 Intake Total 0 1200 Output Total 300 Balance 0 900 - Medications Medications: Current Medications Acetaminophen (Tylenol 325mg Tab) 650 mg PO Q6H PRN PRN Reason: Fever >100.4 F Last Admin: 07/11/16 18:02 Dose: 650 mg Allopurinol (Zyloprim) 200 mg PO DAILY [facility] Last Admin: 07/15/16 09:56 Dose: 200 mg Atorvastatin Calcium (Lipitor) 10 mg PO HS [facility] Last Admin: 07/14/16 21:29 Dose: Not Given Fenofibrate (Tricor) 145 mg PO DAILY [facility] Last Admin: 07/15/16 09:56 Dose: 145 mg Ceftriaxone Sodium (Rocephin 1 Gram Ivpb) 1 gm in 100 mls @ 100 mls/hr IVPB DAILY [facility] PRN Reason: Protocol Last Admin: 07/15/16 09:57 Dose: 100 mls/hr Potassium Chloride 20 meq/ (Dextrose/Sodium Chloride) 1,010 mls @ 50 mls/hr IV .[id number] [facility] Last Admin: 07/15/16 17:19 Dose: 50 mls/hr Pantoprazole Sodium (Protonix 40mg Ivpb) 40 mg in 100 mls @ 20 mls/hr IVPB .Q5H [facility] Last Admin: 07/15/16 17:17 Dose: 20 mls/hr Lidocaine (Lidoderm) 2 ea TD DAILY [facility] Last Admin: 07/15/16 17:16 Dose: 2 ea Metoprolol Tartrate (Lopressor) 25 mg PO BID [facility] Last Admin: 07/15/16 17:14 Dose: 25 mg Non-Formulary Medication (Ranolazine [Ranexa]) 1 tab PO Q12H [facility] Last Admin: 07/15/16 09:58 Dose: Not Given Ondansetron HCl (Zofran Inj) 4 mg IVP Q6H PRN PRN Reason: Nausea/Vomiting Last Admin: 07/14/16 17:33 Dose: 4 mg Ramipril (Altace) 5 mg PO DAILY [facility] Last Admin: 07/15/16 09:55 Dose: 5 mg Sevelamer HCl (Renagel) 800 mg PO WM [facility] Last Admin: 07/15/16 17:18 Dose: Not Given - Labs Labs: 07/15/16 10:00 07/15/16 08:50 PT 40.4 Seconds (9.9-11.8) H* 07/15/16 10:00 INR 3.74 (0.93-1.08) H* 07/15/16 10:00 APTT 33.0 Seconds (23.7-30.8) H 07/15/16 10:00 - Constitutional Appears: No Acute Distress - Head Exam Head Exam: NORMAL INSPECTION - Eye Exam Eye Exam: Normal appearance. absent: Scleral icterus - ENT Exam ENT Exam: Mucous Membranes Moist - Neck Exam Neck Exam: Normal Inspection - Respiratory Exam Respiratory Exam: NORMAL BREATHING PATTERN. absent: Respiratory Distress - Cardiovascular Exam Cardiovascular Exam: +S1, +S2 - GI/Abdominal Exam GI & Abdominal Exam: Soft, Normal Bowel Sounds. absent: Guarding, Tenderness, Rebound - Extremities Exam Extremities Exam: absent: Calf Tenderness, Pedal Edema Additional comments: left sided weakness - Neurological Exam Neurological Exam: Alert, Awake, Oriented x3 (garbaled speech) - Skin Skin Exam: Dry, Warm Assessment and Plan - Assessment and Plan (Free Text) Assessment: ASSESSMENT: Upper gastrointestinal bleed, rule out any peptic ulcer disease, angiodysplasia CVA Internal carotid thrombus, Paroxysmal atrial fibrillation H/O CAD CABG Renal insufficieny Fever PLAN: Start clear liquid , advance as tolerated on Aspirin currently Coumadin /Heparin are on hold on Protonix drip On IVF for hydration on IV antibiotics as per ID Spoke to nursing staff this afternoon that no GI contraindication ( no active bleed, H/H has been steady) to restart Heparin drip, currently INR this am was 3.74, spoke to nursing staff that anticoagulation as per PCP, neurology, cardio but to make aware of INR. Seen and discussed with Dr. Rivera
--- NOTE | 2016-07-15 21:14 | PN ---
DATE: 07/15/2016 REFERRING PHYSICIAN: Dr. Bishop. SUBJECTIVE: He is lying in the bed, comfortable, arousable. Follows simple commands. is at th e bedside. There is no cough, no sputum production. No nausea, no vomiting, no diarrhea. No leg pa in or leg swelling. No more bleeding. OBJECTIVE: GENERAL: In no acute distress. VITAL SIGNS: Temp is 98, heart rate is 87, respiratory rate is 22, blood pressure 123/85, pulse ox 9 7% on room air. HEENT: Moist mucous membranes. Small oral cavity. NECK: Supple. No JVD. LUNGS: Has a fair airflow with a few rhonchi. HEART: S1, S2. ABDOMEN: Soft, nontender. No organomegaly. EXTREMITIES: No edema. NEUROLOGIC: Sleepy, arousable, follows simple commands. MEDICATIONS: He is on Altace 5 mg daily, Lidoderm patch daily, Lipitor 10 mg at bedtime, metoprolol tartrate 25 mg twice a day, continue IV fluid with potassium, Protonix 40 mg daily, Ranexa 1 tab q.12 hours, Renagel 800 mg with meals, Rocephin 1 g IV daily, Tricor 145 mg daily, Tylenol p.r.n. basis, Zofran on a p.r.n. basis, allopurinol 200 mg daily. LABORATORY DATA: Shows hemoglobin 11.4, hematocrit 34.0, WBC 9.8, platelet is 272. His INR this mor deepak was 3.74, PTT is 33. Sodium 134, potassium 4.4, chloride 104, bicarbonate 27, BUN 35, creatinin e 1.7, glucose is 111, lactic acid yesterday 1.1, calcium 9.4, AST 50, ALT 34, alkaline phosphatase i s 37, albumin is 3.4. Microbiology: Blood cultures so far have been negative. IMPRESSION AND PLAN: Embolic stroke requiring tissue plasminogen activator, responded well with clin ical improvement. Followup CTA shows residual clot in the internal carotid and M2 branch on the righ t. Has been on heparin, but had an episode of gastrointestinal bleed, so Coumadin and heparin was pl aced on hold for the last 24-48 hours. A GI consult has been called, so since then there is no drop in hemoglobin and hematocrit and no active bleed noted. the decision was made to re-anti coagulate the patient. The patient was cleared by GI. Seen by cardiology. The patient was restarte d on heparin and also received 5 mg Coumadin after obtaining the INR, which was over 3. The patient' s heparin was discontinued. The patient was given 2.5 mg of vitamin K by me. So far there is no act vickie bleed or hemodynamic instability. I spoke to nursing staff. I also spoke to the patient and wif e in detail. All their questions were answered. Will get INR in the morning. He may have a sleep a pnea syndrome, but does not want to use CPAP/BIPAP, understanding risk of further stroke. Thank you and will follow with you. Helder David MD cc: [id number] TT: 07/15/2016 21:13:44 Confirmation # [id number] Dictation # [id number] dn
[2016-07-15 21:57] LABS: HEMATOCRIT 33.4 % (42.0-52.0); MEAN CELL VOLUME 85.2 fL (80.0-105.0); MEAN CORPUSCULAR HEMOGLOBIN 28.6 pg (25.0-35.0); MEAN CORPUSCULAR HGB CONC 33.5 g/dl (31.0-37.0); MEAN PLATELET VOLUME 10.1 fl (7.0-11.0); RED CELL DISTRIBUTION WIDTH 13.8 % (11.5-14.5); WHITE BLOOD COUNT 9.7 10^3/ul (4.5-11.0)
--- NOTE | 2016-07-15 22:43 | PN ---
DATE: 07/15/2016 SUBJECTIVE: The patient was seen and examined on the bedside. was sitting on the bedside also. No further episodes of hemetemesis or nausea. The patient is sleepy, but easily arousable, communicating a little bit. No more gastrointestinal bleeding reported. No abdominal pain. No fever, no chills. No more episodes of nausea and vomiting. PHYSICAL EXAMINATION: VITAL SIGNS: Temperature 97.8, pulse 80 , respiratory rate 22, blood pressure 123/85, pulse oximetry 97. HEAD: Normocephalic, atraumatic. EYES: PERRLA. Extraocular muscles intact. Conjunctivae are clear. Nose patent. NECK: Supple. No carotid bruit, thyromegaly. CHEST: Bilaterally symmetrical. HEART: S1 is positive. LUNGS: Clear to auscultation. ABDOMEN: Soft. Bowel sounds. No organomegaly. EXTREMITIES: Left upper extremity power is low. Right lower extremity power is 5/5. Whole left side is weak, but upper extremities move weaker than the lower extremities. NEUROLOGIC: The patient is sleepy, arousable, was communicating. MEDICATIONS: Tylenol, allopurinol, Lipitor, Tricor, Rocephin, dextrose, Protonix, Lopressor, Ranexa, Zofran, Altace, Renagel. LABORATORY DATA: White blood cells 9.8, hemoglobin 11.4, hematocrit 34.4, platelets 272. Sodium 135, potassium 4.4, BUN noted , creatinine 1.7, and glucose 111. ASSESSMENT AND PLAN: The patient is a 65-year-old male with anemia, renal insufficiency, hyperglycemia, came with stroke, had upper gastrointestinal bleeding, rule out any peptic ulcer disease, angiodysplasia, cerebrovascular accident, internal carotid thrombus, paroxysmal atrial fibrillation, history of coronary artery disease, cardiomyopathy, coronary artery bypass graft, renal insufficiency, history of fever. The patient is started on clear liquid diet, advance as tolerated, on aspirin. Coumadin and heparin was on hold. Length of time discussion done with Dr. Chriss Valverde and Dr. Rivera. They started the patient back on heparin and Coumadin ,no proof of active bleeding now, hemoglobin and hematocrit are steady. The patient is seen by Dr. 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 I had length of time discussion done with the patient's and explained to her beneficial effects and drawbacks of doing endoscopy and not doing endoscopy, starting heparin and Plavix and not starting heparin and Plavix. She understands without the GI procedure , we are taking the risk of bleeding , she understands that her should be on blood thinner . No change in h/h , Dr. Chriss Valverde had a discussion with the patient's also including me and Dr. Rivera also with and our selfs . She refused endoscopy. She understands that difficulty in treatment , the patient was and was agreeable to start with heparin. Follow up the hemoglobin. She understands the risk of bleeding if the patient does not have endo , from the stomach. Continue present treatment. GI prophylaxis. Repeat labs. We will follow up. Louisa Bishop MD cc: [id number] TT: 07/15/2016 22:41:50 Confirmation # [id number] Dictation # [id number] MTDD
--- NOTE | 2016-07-16 00:38 | CP.PCM.PN ---
Subjective - Date & Time of Evaluation Date of Evaluation: 07/15/16 Time of Evaluation: 22:30 - Subjective Subjective: Infectious Disease Follow Up: July 15, 2016 65 yo male with extensive past medical history with sudden presentation of left sided weakness. He developed left arm shaking, difficulty breathing, gasping for air, and garbled speech. His temperature reached as high as 100.3 F during this hospitalization. The patient is awake and alert. No complaints. No fevers today. Yesterday morning the patient had coffee ground emesis. GI evaluating patient. ICU evaluating patient. Abdominal X-ray did not show any issues. No episodes of coffee ground emesis today. Objective - Vital Signs/Intake and Output Vital Signs (last 24 hours): Temp Pulse Resp BP Pulse Ox 98 F 85 20 123/85 98 07/15/16 16:00 07/15/16 17:14 07/15/16 16:00 07/15/16 17:14 07/15/16 16:00 Intake and Output: 07/15/16 07/16/16 18:59 06:59 Intake Total 1200 240 Output Total 300 Balance 900 240 - Medications Medications: Current Medications Acetaminophen (Tylenol 325mg Tab) 650 mg PO Q6H PRN PRN Reason: Fever >100.4 F Last Admin: 07/11/16 18:02 Dose: 650 mg Allopurinol (Zyloprim) 200 mg PO DAILY [facility] Last Admin: 07/15/16 09:56 Dose: 200 mg Atorvastatin Calcium (Lipitor) 10 mg PO HS [facility] Last Admin: 07/15/16 22:37 Dose: Not Given Fenofibrate (Tricor) 145 mg PO DAILY [facility] Last Admin: 07/15/16 09:56 Dose: 145 mg Ceftriaxone Sodium (Rocephin 1 Gram Ivpb) 1 gm in 100 mls @ 100 mls/hr IVPB DAILY [facility] PRN Reason: Protocol Last Admin: 07/15/16 09:57 Dose: 100 mls/hr Potassium Chloride 20 meq/ (Dextrose/Sodium Chloride) 1,010 mls @ 50 mls/hr IV .[id number] [facility] Last Admin: 07/15/16 22:38 Dose: 50 mls/hr Pantoprazole Sodium (Protonix 40mg Ivpb) 40 mg in 100 mls @ 20 mls/hr IVPB .Q5H [facility] Last Admin: 07/15/16 20:29 Dose: 20 mls/hr Lidocaine (Lidoderm) 2 ea TD DAILY [facility] Last Admin: 07/15/16 17:16 Dose: 2 ea Metoprolol Tartrate (Lopressor) 25 mg PO BID [facility] Last Admin: 07/15/16 17:14 Dose: 25 mg Non-Formulary Medication (Ranolazine [Ranexa]) 1 tab PO Q12H [facility] Last Admin: 07/15/16 09:58 Dose: Not Given Ondansetron HCl (Zofran Inj) 4 mg IVP Q6H PRN PRN Reason: Nausea/Vomiting Last Admin: 07/14/16 17:33 Dose: 4 mg Ramipril (Altace) 5 mg PO DAILY [facility] Last Admin: 07/15/16 09:55 Dose: 5 mg Sevelamer HCl (Renagel) 800 mg PO WM [facility] Last Admin: 07/15/16 17:18 Dose: Not Given - Labs Labs: 07/15/16 21:42 07/15/16 08:50 PT 40.4 Seconds (9.9-11.8) H* 07/15/16 10:00 INR 3.74 (0.93-1.08) H* 07/15/16 10:00 APTT 33.0 Seconds (23.7-30.8) H 07/15/16 10:00 - Constitutional Appears: Non-toxic, No Acute Distress, Chronically Ill - Head Exam Head Exam: ATRAUMATIC, NORMOCEPHALIC - Eye Exam Eye Exam: EOMI, PERRL Pupil Exam: NORMAL ACCOMODATION, PERRL - ENT Exam ENT Exam: Mucous Membranes Moist, Normal External Ear Exam, TM's Normal Bilaterally - Neck Exam Neck Exam: Full ROM, Normal Inspection - Respiratory Exam Respiratory Exam: Clear to Ausculation Bilateral, NORMAL BREATHING PATTERN. absent: Rales, Rhonchi, Wheezes - Cardiovascular Exam Cardiovascular Exam: REGULAR RHYTHM, RRR, +S1, +S2 - GI/Abdominal Exam GI & Abdominal Exam: Soft, Normal Bowel Sounds. absent: Distended, Tenderness - Extremities Exam Extremities Exam: Full ROM Additional comments: general weakness. - Neurological Exam Neurological Exam: Alert, Awake, CN II-XII Intact Additional comments: left sided residual weakness and left sided facial droop. Left hemiparaplegia - Psychiatric Exam Psychiatric exam: Normal Affect, Normal Mood - Skin Skin Exam: Intact, Normal Color Assessment and Plan - Assessment and Plan (Free Text) Assessment: 65 yo [place] male with sudden onset of left sided hemiparesis/hemiplegia with findings of a dense M2 segment right MCA territory infarct. He received TPA. He had episode of paroxysmal atrial fibrillation when in the ER. 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 The patient has been having several episodes of borderline fevers up to 100.3 F. Patient has been in the hospital since 07/05/2016. No additional complaints. Urinalysis not showing signs of UTI. Would obtain Chest X-ray. Cannot rule out the increased temperature can be secondary to the the thrombus as well. Continue on Rocephin for now. Obtain blood cultures. Supportive care. Afebrile today. Leukocytosis resolved. Noted that yesterday morning there was coffee ground emesis. No further coffee ground emesis. Thank you for allowing me to participate in the care of the patient, we will follow with you.
[2016-07-16] MEDS: Pantoprazole 40mg/100ml IVPB 40 MG/100 ML BAG IVPB SCH ×4 (00:49→15:10)
--- NOTE | 2016-07-16 01:15 | PN ---
DATE: 07/15/2016 ADDENDUM This is an addendum to the GI progress report dictated by Luz Greene APN. The patient's was at bedside at the time of examination in the morning. No significant incident overnight. No further vomiting episode. Hemoglobin remains stable. The patient's condition was explained and the patient's hemoglobin to the patient's who fully understood. At the present time, the hemoglobin is stable. On examination, the abdomen is soft. There is no tenderness. LABORATORY DATA: Reports reviewed. It is reasonable to restart the anticoagulation after review of the morning labs which are pending because of the computer [employer] problem. I have discussed with Dr. Bishop in the morning and I agree with the plan to restart the anticoagulation. The patient's is very reluctant for endoscopy procedure at the present time in view of the normal hemoglobin, patient is not actively bleeding. She is concerned about anesthesia and endoscopy. We will discuss with the patient and I explained to her again. The best thing is to find out the exact source of the bleeding and to plan for therapy later. She fully understood the implications but not agreeable for the endoscopy. Plan is to continue restart the anticoagulation, followup with the hemoglobin and hematocrit. If there is any active bleeding or drop in blood count, we will reevaluate. We will discuss with the patient's again, if she will consider endoscopy at that time but at the present time, there is no plan for endoscopy in view of the above explanations. Plan is continue the Protonix drip. We will consider starting the patient on thickened liquid. The INR report was available late and was reviewed. INR was elevated to 3.74. I have discussed with Luz Greene NP. The plan is to discuss with the team regarding the holding of the anticoagulation until the INR becomes more therapeutic. Thank you very much for allowing us to participate in the care of the patient. Giorgi Rivera MD cc: [id number] TT: 07/16/2016 01:15:18 Confirmation # [id number] Dictation # [id number] kathie FENG
[2016-07-16 07:48] LABS: INR 4.09 (0.93-1.08)
[2016-07-16 08:07] VITALS: RESP 19
[2016-07-16 09:41] LABS: MEAN CELL VOLUME 86.1 fL (80.0-105.0); MEAN CORPUSCULAR HEMOGLOBIN 29.4 pg (25.0-35.0); MEAN CORPUSCULAR HGB CONC 34.1 g/dl (31.0-37.0); MEAN PLATELET VOLUME 10.5 fl (7.0-11.0); RED CELL DISTRIBUTION WIDTH 13.9 % (11.5-14.5); WHITE BLOOD COUNT 8.6 10^3/ul (4.5-11.0)
[2016-07-16] MEDS: Lidocaine 5% Patch TD SCH (09:59)
[2016-07-16] MEDS: cefTRIAXone 1 gm 1 GM/100 ML BAG IVPB SCH (09:59)
--- NOTE | 2016-07-16 12:02 | CP.PCM.PN ---
Subjective - Date & Time of Evaluation Date of Evaluation: 07/16/16 Time of Evaluation: 10:20 - Subjective Subjective: Seen and examined at bedside, visiting. No more episodes of hematemesis, reports that the patient had chocolate pudding the night before. Tolerating the clear liquids, No nausea, no SOB, chest pain or abdominal pain. No reports of Bleeding per rectum. Objective - Vital Signs/Intake and Output Vital Signs (last 24 hours): Temp Pulse Resp BP Pulse Ox 99.2 F 80 19 134/86 97 07/16/16 08:28 07/16/16 09:58 07/16/16 08:28 07/16/16 09:58 07/16/16 08:28 Intake and Output: 07/16/16 07/16/16 06:59 18:59 Intake Total 240 0 Balance 240 0 - Medications Medications: Current Medications Acetaminophen (Tylenol 325mg Tab) 650 mg PO Q6H PRN PRN Reason: Fever >100.4 F Last Admin: 07/11/16 18:02 Dose: 650 mg Allopurinol (Zyloprim) 200 mg PO DAILY [facility] Last Admin: 07/16/16 09:58 Dose: 200 mg Atorvastatin Calcium (Lipitor) 10 mg PO HS [facility] Last Admin: 07/15/16 22:37 Dose: Not Given Fenofibrate (Tricor) 145 mg PO DAILY [facility] Last Admin: 07/16/16 09:57 Dose: 145 mg Ceftriaxone Sodium (Rocephin 1 Gram Ivpb) 1 gm in 100 mls @ 100 mls/hr IVPB DAILY [facility] PRN Reason: Protocol Last Admin: 07/16/16 09:59 Dose: 100 mls/hr Potassium Chloride 20 meq/ (Dextrose/Sodium Chloride) 1,010 mls @ 50 mls/hr IV .[id number] [facility] Last Admin: 07/15/16 22:38 Dose: 50 mls/hr Pantoprazole Sodium (Protonix 40mg Ivpb) 40 mg in 100 mls @ 20 mls/hr IVPB .Q5H [facility] Last Admin: 07/16/16 10:01 Dose: Not Given Lidocaine (Lidoderm) 2 ea TD DAILY [facility] Last Admin: 07/16/16 09:59 Dose: 2 ea Metoprolol Tartrate (Lopressor) 25 mg PO BID [facility] Last Admin: 07/16/16 09:58 Dose: 25 mg Non-Formulary Medication (Ranolazine [Ranexa]) 1 tab PO Q12H [facility] Last Admin: 07/15/16 09:58 Dose: Not Given Ondansetron HCl (Zofran Inj) 4 mg IVP Q6H PRN PRN Reason: Nausea/Vomiting Last Admin: 07/14/16 17:33 Dose: 4 mg Ramipril (Altace) 5 mg PO DAILY [facility] Last Admin: 07/16/16 09:58 Dose: 5 mg Sevelamer HCl (Renagel) 800 mg PO WM [facility] Last Admin: 07/16/16 10:02 Dose: Not Given - Labs Labs: 07/16/16 09:30 07/15/16 08:50 PT 44.2 Seconds (9.9-11.8) H* 07/16/16 05:45 INR 4.09 (0.93-1.08) H* 07/16/16 05:45 APTT 34.0 Seconds (23.7-30.8) H 07/16/16 05:45 - Constitutional Appears: No Acute Distress - Head Exam Head Exam: NORMAL INSPECTION - Eye Exam Eye Exam: Normal appearance. absent: Scleral icterus - ENT Exam ENT Exam: Mucous Membranes Moist - Neck Exam Neck Exam: Normal Inspection - Respiratory Exam Respiratory Exam: Rhonchi, NORMAL BREATHING PATTERN. absent: Rales, Wheezes, Respiratory Distress Additional comments: few - Cardiovascular Exam Cardiovascular Exam: +S1, +S2 - GI/Abdominal Exam GI & Abdominal Exam: Soft, Normal Bowel Sounds. absent: Guarding, Tenderness, Rebound - Extremities Exam Extremities Exam: absent: Calf Tenderness, Pedal Edema - Neurological Exam Neurological Exam: Alert, Awake, Oriented x3 (left sided weakness) - Skin Skin Exam: Dry, Warm Assessment and Plan - Assessment and Plan (Free Text) Assessment: ASSESSMENT: Upper gastrointestinal bleed, rule out any peptic ulcer disease, angiodysplasia , H/H steady CVA Internal carotid thrombus, Paroxysmal atrial fibrillation H/O CAD CABG Renal insufficieny Fever Coagulopathy, s/p Vitamin K PLAN: advance diet puree heart healthy on Protonix drip repeat PT/INR 2 pm off Aspirin On IVF for hydration on IV antibiotics as per ID spoke to does not want EGD, also want to transfer to [facility], where 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
--- NOTE | 2016-07-16 12:32 | PN ---
DATE: 07/16/[address] Chriss Valverde. SUBJECTIVE: The patient denies any chest pain. He reported shortness of breath. PHYSICAL EXAMINATION: VITAL SIGNS: Blood pressure 134/86, heart rate 80, temperature 99.2, respirations 19. HEENT: Normocephalic. NECK: No JVD. CHEST: Diminished breath sounds over the bases. HEART: S1, S2 regular. EXTREMITIES: No edema. LABORATORIES: The most recent hemoglobin and hematocrit on 07/12 were 12 and 35.6, respectively. Yes terday's BUN and 35 and 1.7, respectively. Brain MRI on 07/07 revealed extensive acute infarct in th e right hemisphere in the distribution of the right middle cerebral artery. Chest x-ray on admission revealed cardiomegaly with mild to moderate CHF. Echocardiographic study on 07/06 revealed mild aort ic insufficiency, moderate to severe pulmonary hypertension, severely impaired left ventricular systo lic function, ejection fraction estimated at 26%. ASSESSMENT: 1. Status post acute cerebrovascular accident. 2. Chronic atrial fibrillation. 3. Coronary artery disease, status post coronary artery bypass surgery. 4. Congestive heart failure. 5. Questionable gastrointestinal bleeding. RECOMMENDATIONS: Continue Altace at 5 mg daily, Lipitor at 10 mg once a day, Lopressor at 25 mg once a day. Coumadin is being withheld. I will start Lasix at 40 mg intravenously once a day. Obtain a portable chest x-ray. I spoke to the patient's , who is very unhappy with the care provided to the patient and wants to take him to [place] under his tutoring manager's service, Dr. Manzanares. The patient was given the option to do that after contacting Dr. Manzanares. Ezra Chu MD cc: [id number] TT: 07/16/2016 12:31:36 Confirmation # [id number] Dictation # [id number] tn
--- NOTE | 2016-07-16 12:44 | RAD ---
HISTORY: CHF COMPARISON: 07/12/2016 FINDINGS: LUNGS: No active pulmonary disease. PLEURA: No significant pleural effusion identified, no pneumothorax apparent. CARDIOVASCULAR: Moderate cardiomegaly OSSEOUS STRUCTURES: Sternal wires VISUALIZED UPPER ABDOMEN: Normal. OTHER FINDINGS: None. IMPRESSION: No active disease.
[2016-07-16 13:45] LABS: PARTIAL THROMBOPLASTIN TIME 36.6 Seconds (23.7-30.8)
[2016-07-16 14:01] LABS: INR 5.01 (0.93-1.08)
[2016-07-16] MEDS: RANOLAZINE PO SCH (15:10)
--- NOTE | 2016-07-16 16:10 | CP.PCM.PN ---
Subjective - Date & Time of Evaluation Date of Evaluation: 07/16/16 Time of Evaluation: 14:30 - Subjective Subjective: Infectious Disease Follow Up: July 16, 2016 65 yo male with extensive past medical history with sudden presentation of left sided weakness. He developed left arm shaking, difficulty breathing, gasping for air, and garbled speech. His temperature reached as high as 100.3 F during this hospitalization. The patient is awake and alert. No complaints. No fevers today. Yesterday morning the patient had coffee ground emesis. GI evaluating patient. ICU evaluating patient. Abdominal X-ray did not show any issues. No episodes of coffee ground emesis today. Objective - Vital Signs/Intake and Output Vital Signs (last 24 hours): Temp Pulse Resp BP Pulse Ox 99.2 F 80 19 138/82 97 07/16/16 08:28 07/16/16 09:58 07/16/16 08:28 07/16/16 14:03 07/16/16 08:28 Intake and Output: 07/16/16 07/16/16 06:59 18:59 Intake Total 240 0 Balance 240 0 - Medications Medications: Current Medications Acetaminophen (Tylenol 325mg Tab) 650 mg PO Q6H PRN PRN Reason: Fever >100.4 F Last Admin: 07/11/16 18:02 Dose: 650 mg Allopurinol (Zyloprim) 200 mg PO DAILY [facility] Last Admin: 07/16/16 09:58 Dose: 200 mg Atorvastatin Calcium (Lipitor) 10 mg PO HS [facility] Last Admin: 07/15/16 22:37 Dose: Not Given Fenofibrate (Tricor) 145 mg PO DAILY [facility] Last Admin: 07/16/16 09:57 Dose: 145 mg Furosemide (Lasix) 40 mg IVP DAILY [facility] Last Admin: 07/16/16 14:03 Dose: 40 mg Ceftriaxone Sodium (Rocephin 1 Gram Ivpb) 1 gm in 100 mls @ 100 mls/hr IVPB DAILY [facility] PRN Reason: Protocol Last Admin: 07/16/16 09:59 Dose: 100 mls/hr Potassium Chloride 20 meq/ (Dextrose/Sodium Chloride) 1,010 mls @ 50 mls/hr IV .[id number] [facility] Last Admin: 07/15/16 22:38 Dose: 50 mls/hr Pantoprazole Sodium (Protonix 40mg Ivpb) 40 mg in 100 mls @ 20 mls/hr IVPB .Q5H [facility] Last Admin: 07/16/16 15:10 Dose: 20 mls/hr Lidocaine (Lidoderm) 2 ea TD DAILY [facility] Last Admin: 07/16/16 09:59 Dose: 2 ea Metoprolol Tartrate (Lopressor) 25 mg PO BID [facility] Last Admin: 07/16/16 09:58 Dose: 25 mg Non-Formulary Medication (Ranolazine [Ranexa]) 1 tab PO Q12H [facility] Last Admin: 07/16/16 15:10 Dose: Not Given Ondansetron HCl (Zofran Inj) 4 mg IVP Q6H PRN PRN Reason: Nausea/Vomiting Last Admin: 07/14/16 17:33 Dose: 4 mg Ramipril (Altace) 5 mg PO DAILY [facility] Last Admin: 07/16/16 09:58 Dose: 5 mg Sevelamer HCl (Renagel) 800 mg PO WM [facility] Last Admin: 07/16/16 13:59 Dose: Not Given - Labs Labs: 07/16/16 09:30 07/15/16 08:50 PT 54.1 Seconds (9.9-11.8) H* 07/16/16 13:10 INR 5.01 (0.93-1.08) H* 07/16/16 13:10 APTT 36.6 Seconds (23.7-30.8) H 07/16/16 13:10 - Constitutional Appears: Non-toxic, No Acute Distress, Chronically Ill - Eye Exam Eye Exam: EOMI, PERRL Pupil Exam: NORMAL ACCOMODATION, PERRL - ENT Exam ENT Exam: Mucous Membranes Moist, Normal External Ear Exam, TM's Normal Bilaterally - Neck Exam Neck Exam: Full ROM, Normal Inspection - Respiratory Exam Respiratory Exam: Clear to Ausculation Bilateral, NORMAL BREATHING PATTERN. absent: Rales, Rhonchi, Wheezes - Cardiovascular Exam Cardiovascular Exam: REGULAR RHYTHM, RRR, +S1, +S2 - GI/Abdominal Exam GI & Abdominal Exam: Soft, Normal Bowel Sounds. absent: Distended, Tenderness - Extremities Exam Extremities Exam: Full ROM, Normal Inspection Additional comments: general weakness. - Neurological Exam Neurological Exam: Alert, Awake, CN II-XII Intact, Oriented x3 Additional comments: left sided residual weakness and left sided facial droop. Left hemiparaplegia - Psychiatric Exam Psychiatric exam: Normal Affect, Normal Mood - Skin Skin Exam: Intact, Normal Color Assessment and Plan - Assessment and Plan (Free Text) Assessment: 65 yo [place] male with sudden onset of left sided hemiparesis/hemiplegia with findings of a dense M2 segment right MCA territory infarct. He received TPA. He had episode of paroxysmal atrial fibrillation when in the ER. 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 The patient has been having several episodes of borderline fevers up to 100.3 F. Patient has been in the hospital since 07/05/2016. No additional complaints. Urinalysis not showing signs of UTI. Would obtain Chest X-ray. Cannot rule out the increased temperature can be secondary to the the thrombus as well. Continue on Rocephin for now. Obtain blood cultures. Supportive care. Afebrile today. Leukocytosis resolved. Noted that two mornings ago there was coffee ground emesis. No further coffee ground emesis. Thank you for allowing me to participate in the care of the patient, we will follow with you.
[2016-07-16 18:03] LABS: INR 5.28 (0.93-1.08)
[2016-07-16 18:24] VITALS: BP 130/72; PULSE 82
--- NOTE | 2016-07-16 18:26 | CP.PCM.PN ---
Subjective - Date & Time of Evaluation Date of Evaluation: 07/16/16 Time of Evaluation: 17:30 - Subjective Subjective: Patient: RAS MONTES Unit: [id number] : 1950 Loc: CCU Room/Bed: 129-05 Age/Sex: 65 / M ADM Status: ADM IN ADM Date: [id number] DIS Date: Progress note: DATE: 07/16/2016 CHIEF COMPLAINT: F/U for Left side weakness. SUBJECTIVE: Currently, still has left hemiplegia and is slightly sleepy due to right MCA territory infarct. He is out of bed to chair today. Patient has hypercoaguale, coumadin on hold due to supratherapeutic. Patient weakness is the same. PAST MEDICAL HISTORY: Coronary artery disease, hyperlipidemia, diverticulitis, gout, chronic kidney disease. SURGICAL HISTORY: Appendectomy, quadruple bypass. SOCIAL HISTORY: Former smoker. No alcohol or illicit drug use. ALLERGIES: No known drug allergies. MEDICATIONS: At home were aspirin, Coreg, Renvela, Ranexa, allopurinol, vitamin D, Lipitor, Avapro, fenofibric acid, nitroglycerin, Plavix. REVIEW OF SYSTEMS: A 14-point review of systems is negative except as in the HPI. PHYSICAL EXAMINATION: VITAL SIGNS: Reviewed. GENERAL: The patient is sitting up in bed in no acute distress, extubated. HEENT: Atraumatic, normocephalic. PERRLA. Extraocular muscles intact. NECK: Supple, no JVD, no adenopathy noted. LUNGS: Clear to auscultation. No adventitious sounds. HEART: S1, S2, normal rate and rhythm. No murmurs, rubs, or gallops. ABDOMEN: Soft, nontender, nondistended. Bowel sounds present. EXTREMITIES: No clubbing, no cyanosis. Has trace pedal edema. NEUROLOGIC: The patient is drowsy, in no acute distress. Speech is hypophonic , slight dysarthria. No aphasia noted. Cranial nerves II-XII are intact with mild left facial droop. MOTOR: Has dense left hemiparaplegia, moves right upper and lower extremities. Right toe is downgoing, left toe is upgoing. SENSORY EXAM: Withdraws to localized noxious stimulus. Light touch is intact. Proprioception is intact. DTRs 2+ throughout. COORDINATION: [id number] intact on the right. Difficult on the left due to residual left side weakness. LABORATORIES: Reviewed. ASSESSMENT AND PLAN: This is a nice 65-year-old [place] man with past medical history of gout, dyslipidemia, hypertriglyceridemia, coronary artery disease, chronic kidney disease, diverticulitis who presented with left-sided hemiparesis/hemiplegia, found to have a dense M2 segment right MCA territory infarct, which is possible the patient's current present medical status. His M2 segment is somewhat more distal than usual for intra-arterial intervention, he is status post TPA past 24hrs ago. He had a round of paroxysmal atrial fibrillation in the ER. He has acute right carotid thrombus , can not get CTA neck due to his creatinine elevation for CKD. Patient was placed on Heparin to disolve the clot. His cardiac output is poor with low EF. MRA neck showed no thrombus. Likely stroke is secondary to diffuse atherosclerotic disease superimposed on underlying possible paroxysmal atrial fibrillation and poor cardaic output creating clots. At this time, recommend: 1. Will need coumadin and ASa 81 mg po in future given history of poor cardiac function, paroxsymal afib with positive CVA, but coumadin on hold due to being supratherapeutic. will resume by primary or cardiology once back to therapeutic range of 2-3 2. Will need to continue with speech and swallow, PT, OT and acute rehabilitation. 3. Keep his blood pressure between 120 and 130 mmHg. 4. Continue with current mx. 5. OOB. Ferny Michael MD Objective - Vital Signs/Intake and Output Vital Signs (last 24 hours): Temp Pulse Resp BP Pulse Ox 99.2 F 80 19 138/82 97 07/16/16 08:28 07/16/16 09:58 07/16/16 08:28 07/16/16 14:03 07/16/16 08:28 Intake and Output: 07/16/16 07/16/16 06:59 18:59 Intake Total 240 0 Balance 240 0 - Medications Medications: Current Medications Acetaminophen (Tylenol 325mg Tab) 650 mg PO Q6H PRN PRN Reason: Fever >100.4 F Last Admin: 07/11/16 18:02 Dose: 650 mg Allopurinol (Zyloprim) 200 mg PO DAILY [facility] Last Admin: 07/16/16 09:58 Dose: 200 mg Atorvastatin Calcium (Lipitor) 10 mg PO HS [facility] Last Admin: 07/15/16 22:37 Dose: Not Given Fenofibrate (Tricor) 145 mg PO DAILY [facility] Last Admin: 07/16/16 09:57 Dose: 145 mg Furosemide (Lasix) 40 mg IVP DAILY [facility] Last Admin: 07/16/16 14:03 Dose: 40 mg Ceftriaxone Sodium (Rocephin 1 Gram Ivpb) 1 gm in 100 mls @ 100 mls/hr IVPB DAILY [facility] PRN Reason: Protocol Last Admin: 07/16/16 09:59 Dose: 100 mls/hr Potassium Chloride 20 meq/ (Dextrose/Sodium Chloride) 1,010 mls @ 50 mls/hr IV .[id number] [facility] Last Admin: 07/15/16 22:38 Dose: 50 mls/hr Pantoprazole Sodium (Protonix 40mg Ivpb) 40 mg in 100 mls @ 20 mls/hr IVPB .Q5H [facility] Last Admin: 07/16/16 15:10 Dose: 20 mls/hr Lidocaine (Lidoderm) 2 ea TD DAILY [facility] Last Admin: 07/16/16 09:59 Dose: 2 ea Metoprolol Tartrate (Lopressor) 25 mg PO BID [facility] Last Admin: 07/16/16 09:58 Dose: 25 mg Non-Formulary Medication (Ranolazine [Ranexa]) 1 tab PO Q12H [facility] Last Admin: 07/16/16 15:10 Dose: Not Given Ondansetron HCl (Zofran Inj) 4 mg IVP Q6H PRN PRN Reason: Nausea/Vomiting Last Admin: 07/14/16 17:33 Dose: 4 mg Ramipril (Altace) 5 mg PO DAILY [facility] Last Admin: 07/16/16 09:58 Dose: 5 mg Sevelamer HCl (Renagel) 800 mg PO WM [facility] Last Admin: 07/16/16 13:59 Dose: Not Given - Labs Labs: 07/16/16 09:30 07/15/16 08:50 PT 57.0 Seconds (9.9-11.8) H* 07/16/16 17:36 INR 5.28 (0.93-1.08) H* 07/16/16 17:36 APTT 36.9 Seconds (23.7-30.8) H 07/16/16 17:13
[2016-07-16 18:34] VITALS: TEMP 97.9; O2SAT 100
--- NOTE | 2016-07-16 19:30 | PN ---
DATE: 07/16/2016 REFERRING PHYSICIAN: Dr. Bishop. SUBJECTIVE: He is lying in the bed, sleepy, arousable, follows simple command. Night was unremarkab le, p.o. diet is being started, is at the bedside. There is not much cough, no sputum productio n, no hemoptysis, no melena. No hematuria. No sign of bleeding. OBJECTIVE: GENERAL: In no acute distress. VITAL SIGNS: Temp is 99, heart rate is 80, respiratory rate is 19, blood pressure 134/84, pulse ox 9 7% on nasal cannula. HEENT: Small oral cavity. Crowded airway. NECK: Supple, no JVD. LUNGS: Have a fair airflow with few rhonchi. HEART: S1 and S2. ABDOMEN: Soft, nontender. No organomegaly. EXTREMITIES: There is no edema. NEUROLOGIC: Sleepy, arousable, follows simple command. MEDICATIONS: He is on Altace 5 mg daily, Lasix 40 mg daily, Lidoderm patch at affected area, Lipitor 10 mg daily, metoprolol tartrate 25 mg twice a day, potassium with IV fluid which is replacement pot assium, Protonix 40 mg IV daily, Ranexa 1 tab q. 12 hours, Renagel 800 mg with meals, Rocephin 1 g I V daily, Tricor 145 mg daily, Tylenol p.r.n. basis, Zofran on a p.r.n. basis, allopurinol is at 200 m g daily. Chest x-ray was done today which shows no active pulmonary disease. IMPRESSION AND PLAN: Embolic stroke requiring tPA, responded well with improvement clinically. 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 Also, has cardiomyopathy, atrial fibrillation, may have a component of sleep apnea syndrome. The patient seen by GI because of a questionable gastrointestinal bleed documented by shelby arguetai kathie. Family, his , refused EGD and GI workup. So gastroenterology recommended to restart anticoa gulation as well as the diet. His INR was about 4, received vitamin K 2.5 mg yesterday. This mornin g, INR is 5 and another dose of vitamin K, 5 mg, given p.o. I also spoke to at bedside in [facility]. All the questions were answered to her satisfaction. She wants her to be transferred to [facility] as soon as possible. I spoke to criminal justice social worker about discharge plan in detail, requested to send the records to [facility] The patient has been accepted for care at [facility]. I ordered a stat INR level was 5:00 or so. Will check INR level to decide if patient needs more vitamin K or we can just follow INR in the morning. He is a high risk for thromboembolic disease, e specially with atrial fibrillation, cardiomyopathy, clot ____ internal carotid and M2 clot. As long as hemodynamically stable, no sign of bleed, will not be very aggressive with vitamin K because of h is high risk of further clot. The situation explained to , she expressed understanding and agree d with the plan. Thank you and will follow with you. Helder David MD cc: [id number] TT: 07/16/2016 19:29:20 Confirmation # [id number] Dictation # [id number] zia
--- NOTE | 2016-07-17 23:17 | PN ---
DATE: 07/16/2016 The patient was seen and examined at the bedside. was standing at the bedside feeding him. He still has left-sided weakness, especially left upper extremity due to right MCA territory infarct. The patient was out of bed to the chair today. No fever, no chills. No nausea, vomiting or diarrhea. The patient is not giving a good review of systems, but looks like comfortable, follows simple commands. The night was unremarkable. Not much cough and no sputum production and no hemoptysis. No melena, hematuria, no hematochezia. No signs of bleeding. PHYSICAL EXAMINATION: VITAL SIGNS: Temperature 98.6, heart rate 80, respiratory rate 19, blood pressure 134/84, pulse oximetry 97% on nasal cannula. HEENT: Head normocephalic, atraumatic. Eyes are open. PERRLA. Extraocular movements intact. Conjunctivae clear. Nose patent. Mucous membranes moist. NECK: Supple. No carotid bruits. No JVD or thyromegaly. LUNGS: Has a fair airflow with a few rhonchi. HEART: S1, S2 positive. ABDOMEN: Soft. No organomegaly. EXTREMITIES: No edema, no cyanosis. NEUROLOGIC: The patient is awake and follows simple commands. MEDICATIONS: Altace, Lasix, Lidoderm, Lipitor, metoprolol, potassium, IV fluid , Protonix, Ranexa, Rocephin, Tricor, Tylenol, Zofran, allopurinol. LABORATORY DATA: INR is 4.09, repeat is 5.01, PT 44.2, 54.1 and 57.0. PTT 36.9. White blood cells 8.5, hemoglobin 11.6, hematocrit 34.0, and platelets 329. Sodium 135, potassium 4.4, BUN 37, creatinine 1.7, and glucose 116. ASSESSMENT AND PLAN: The patient is a 65-year-old male with anemia, history of leukocytosis, improved; renal insufficiency, hyperglycemia, coagulopathy. He got vitamin K x 2, holding Coumadin. The patient was seen by Dr. David, Dr. Michael, Dr. Herring and Dr. Chu. The patient had embolic stroke requiring TPA , responding well with improvement clinically. Subsequent workup showed an internal carotid clot and also M2 branch clot. He was on heparin and switched over to Coumadin. Also has severe cardiomyopathy, atrial fibrillation, maybe a component of sleep apnea syndrome. GI was on the case, Dr. Rivera, for questionable gastrointestinal bleed documented by house physician and nursing staff. The refused EGD and GI workup so school boat driver recommended to restart anticoagulation as well as diet. Anticoagulation was suggested by inside outside sales representative also. The patient's INR was high. This morning INR is 5 and another dose of vitamin K given. WILL REPEAT inr more often . Length of time in discussion done with the patient's . I had a discussion done with Dr. David also. All the patient's questions are answered. She wanted to transfer the patient to [facility] as soon as possible. Length of time in discussion done. I explained to her that [facility] is a rehab but according to her she wants to take to [facility]. parish worker was on the case also making discharge planning. Medical records sent to [facility] and our nurse,Narcisa , talked to the [facility] nurse who gave her turnover. The patient is accepted to [facility]. Stat INR was ordered and after that another dose of vitamin K given and Narcisa spoke to the [facility] nurse that no , 3 days Coumadin and INR should be checked every day and the patient should be avoided for trauma and seizures. He is at risk for thromboembolic disease, especially with the atrial fibrillation and severe cardiomyopathy. Right now hemodynamically, the patient is stable. No signs of bleeding. Reviewed Dr. Ferny Michael's notes also and I had a length of time with the patient done with Dr. Michael. The patient has anemia. The patient has a history of gouty arthritis, dyslipidemia, hypertriglyceridemia and diverticulitis. According to inside outside sales representative likely stroke is secondary to diffuse atherosclerotic disease superimposed on underlying possible paroxysmal atrial fibrillation, poor cardiac output creating clot. The patient will need Coumadin and aspirin later on because of poor cardiac function, but right now it is on hold because of coagulopathy. Needs speech and swallowing evaluation and PT, OT and need acute rehabilitation. Keep blood pressure between 120-130. Continue with current treatment, out of bed, physical therapy. Will followup. Louisa Bishop MD cc: [id number] TT: 07/16/2016 23:47:06 Confirmation # [id number] Dictation # [id number] dn PING
--- NOTE | 2016-09-20 09:07 | DS ---
CHIEF COMPLAINT: Weakness, neurological deficit. HISTORY OF PRESENT ILLNESS: The patient is a 65-year-old male well known for me because I was beauty sales consultant. The patient has a history of coronary artery disease, CABG, hypercholesterolemia, chronic kidney disease, came to the emergency room for evaluation of sudden onset left-sided weakness and slurred speech. The patient's called the ambulance after noticing that he had increased difficulty of breathing. The patient was unable to protect his airways and was intubated in the field and as per patient's , they was on vacations and after vacation, she felt he is getting weak, but according to patient, he was okay. Now, we did CAT scan of the head in [facility], chest x-ray. Again, CAT scan of the head was done, brain MRI, neck MRA, head MRA. The patient was seen by Dr. Michael, she is a neurologist; Dr. Dieudonne Herring, hooker on. GI consult was called because of anemia and bleeding with Dr. Rivera. The patient was seen by the oiling machine operator Dr. Chriss Valverde. Heart physicians also saw the patient and ultrasound was done, read by Dr. Chriss Gale. The patient was admitted in the ICU, then transferred to the floor. The patient improved, was transferred to rehab. Rehab was chosen by the , Misa, then the patient went to rehab. After that, came in to my office with some paper workup, my office did that. PAST MEDICAL HISTORY: History of AR, coronary artery disease, quadruple bypass, renal insufficiency, high uric acid, history of appendectomy. FAMILY HISTORY: Father and mother, noncontributory. HABITS: Positive for smoking, alcohol, ethanol, drugs. SOCIAL HISTORY: Substance abuse no. ALLERGIES: THE PATIENT IS NOT ALLERGIC TO ANY MEDICATION. HOME MEDICATIONS: Allopurinol, aspirin, cyproheptadine, vitamin D, fenofibrate, Nitrostat, Altace, Ranexa. REVIEW OF SYSTEMS: The patient was seen and examined on 07/16/2016 on the bedside. was on the bedside. Still having left-sided weakness, especially in the left upper extremity due to right MCA territory infarction. The patient is getting out of the bed to the chair. No fever, no chills. For more details, see my progress note of 07/16/2016. Louisa Bishop MD [facility] # [id number] PING
== END 2016-07-16 22:41 | DRG 62 ==
LOC: ED 19:29 → ERH 20:22 → CCU 07-06 10:18 → 3RNO 07-08 07:59
PROVIDERS: ADMIT Internal Medicine; ATTEND Internal Medicine
PROC: 3E03317 Introduction of Other Thrombolytic into Peripheral Vein, Percutaneous Approach (ICD-10-PCS; principal; 2016-07-05)
PROC: 5A1935Z Respiratory Ventilation, Less than 24 Consecutive Hours (ICD-10-PCS; 2016-07-06)
PROC: 0BH17EZ Insertion of Endotracheal Airway into Trachea, Via Natural or Artificial Opening (ICD-10-PCS; 2016-07-06)
PROC: 5A09457 Assistance with Respiratory Ventilation, 24-96 Consecutive Hours, Continuous Positive Airway Pressure (ICD-10-PCS; 2016-07-07)
DX: I63.511 Cerebral infarction due to unspecified occlusion or stenosis of right middle cerebral artery (principal); K92.0 Hematemesis; I42.0 Dilated cardiomyopathy; G81.94 Hemiplegia, unspecified affecting left nondominant side; I13.0 Hypertensive heart and chronic kidney disease with heart failure and stage 1 through stage 4 chronic kidney disease, or unspecified chronic kidney disease; I50.9 Heart failure, unspecified; I48.0 Paroxysmal atrial fibrillation; R29.723 NIHSS score 23; R47.81 Slurred speech; I25.10 Atherosclerotic heart disease of native coronary artery without angina pectoris; E78.5 Hyperlipidemia, unspecified; I65.21 Occlusion and stenosis of right carotid artery; F17.200 Nicotine dependence, unspecified, uncomplicated; N18.9 Chronic kidney disease, unspecified; M10.00 Idiopathic gout, unspecified site; E78.00 Pure hypercholesterolemia, unspecified; R47.01 Aphasia; E78.1 Pure hyperglyceridemia; I27.2 Other secondary pulmonary hypertension; I08.2 Rheumatic disorders of both aortic and tricuspid valves; G47.30 Sleep apnea, unspecified; R47.1 Dysarthria and anarthria; I45.10 Unspecified right bundle-branch block; I48.2 Chronic atrial fibrillation; D64.9 Anemia, unspecified; R73.9 Hyperglycemia, unspecified; R50.9 Fever, unspecified; R04.0 Epistaxis; R79.1 Abnormal coagulation profile; Z79.01 Long term (current) use of anticoagulants; I25.2 Old myocardial infarction; Z79.82 Long term (current) use of aspirin; Z95.1 Presence of aortocoronary bypass graft